=== PATIENT | female | born 1970 | race Caucasian/White ===

== ENCOUNTER 2019-11-15 13:39 | Inpatient (IN) ==
[2019-11-15] MEDS ORDERED: cefTRIAXone SODIUM 1,000 MG/50 ML BAG IV STA (14:42)
--- NOTE | 2019-11-15 15:07 | Emergency Department Note ---
History of Present Illness General Chief complaint: Leg Injury/Pain Stated complaint: LEFT LEG SWOLLEN,BRUISED AND PAINFUL Time Seen by Provider: 11/15/19 14:10 History of Present Illness Maximum Pain Intensity: 10 This 49-year-old female presents the ER with chief complaint of pain and s welling to the stump of her left leg. 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 She states that it started getting swollen a month ago and was seen in her PCPs office and told to go home and prop it up. She was later seen at [facility] and was told she had cellulitis and was placed on antibiotics and Lasix. The patient has been done with the antibiotic for the 2 to 3 weeks and states she does not feel like it is getting any better. She states is very tender to touch and she now notices an area that looks like a huge blister right on the stump. She states the pain radiates up the leg. The patient states she had a Doppler performed at [facility] approximately 1 month ago which was negative. She returned in the ER a week later and was placed on morphine and was placed on amoxicillin. Home Medications Home Medications Medication Instructions Recorded Confirmed Type adalimumab 40 mg/0.8 mL See Rx Instructions SQ .COMPLEX 03/20/19 03/20/19 History subcutaneous syringe kit cholecalciferol (vitamin D3) 125 5,000 units PO DAILY 03/20/19 03/20/19 History mcg (5,000 unit) capsule clopidogrel 75 mg tablet 75 mg PO DAILY 03/20/19 03/20/19 History duloxetine 60 mg capsule,delayed 60 mg PO BID cap 03/20/19 03/20/19 History release folic acid 1 mg tablet 1 mg PO DAILY 03/20/19 03/20/19 History hydroxychloroquine 200 mg tablet 300 mg PO DAILY tab 03/20/19 03/20/19 History lisinopril 10 mg tablet 10 mg PO DAILY 03/20/19 03/20/19 History meloxicam 7.5 mg tablet 7.5 mg PO DAILY 03/20/19 03/20/19 History methotrexate sodium (PF) 50 mg mg .ROUTE 03/20/19 03/20/19 History solution for injection olanzapine 20 mg tablet 20 mg PO HS tab 03/20/19 03/20/19 History ondansetron HCl 4 mg tablet 4 mg PO TID PRN 03/20/19 03/20/19 History prazosin 2 mg capsule 2 mg PO QPM 03/20/19 03/20/19 History prednisolone 5 mg tablet 5 mg PO DAILY 03/20/19 03/20/19 History rosuvastatin 10 mg tablet 10 mg PO DAILY 03/20/19 03/20/19 History sulfasalazine 500 mg tablet 0.5 gm PO BID tab 03/20/19 03/20/19 History gabapentin 600 mg tablet 600 mg PO TID #90 tab 03/26/19 Rx Allergies Allergy/AdvReac Type Severity Reaction Status Date / Time No Known Allergies Allergy Verified 03/20/19 15:00 Past Med/Surg History Medical History Acquired absence of left leg below knee (Acute) Acquired absence of right leg below knee (Acute) Adjustment disorder with mixed anxiety and depressed mood (Acute) Amput below knee, unilat (Acute) Chronic pain syndrome (Acute) Inflammatory polyarthropathy (Acute) PVD (peripheral vascular disease) (Acute) Rheumatoid arthritis (Acute) Surgical History Hx of cholecystectomy (Resolved) Social History Communication Ability: Effective Hearing Ability: Normal 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 Beliefs That Will Affect Care: None marital status: seperated Current Living Situation: Alone current occupational status: disabled Feels Safe at Home: Yes Smoking Status: Current every day smoker Hx Alcohol Use: No Hx Substance Use: No Review of Systems A total of 10 systems reviewed and were otherwise negative Physical Exam Vital Signs Vital Signs - 24 hr 11/15/19 13:44 11/15/19 14:54 Temperature 36.5 C Temperature Source Oral Pulse Rate 87 Pulse Rate [Finger] 86 Respiratory Rate 18 18 Respiratory Effort / Characteristics Non-Labored Respiratory Depth Normal Respiratory Pattern Regular Blood Pressure 104/71 Blood Pressure [Right Arm] 120/81 Blood Pressure Mean 82 Blood Pressure Mean [Right Arm] 94 Blood Pressure Position [Right Arm] Sitting Pulse Oximetry 99 96 Oxygen Delivery Method Room Air Room Air Sepsis Recent Fever Within 48 Hours No Sepsis New/Unexplained Change in Mental Status No Sepsis Action Taken by Nursing No Action Required GENERAL: 49-year-old female appears in no acute distress. MENTAL Status: Alert and oriented x3 NECK: Supple, no lymphadenopathy noted. No carotid bruits noted. LUNGS: Clear auscultation without wheezes rales or rhonchi. CARDIAC: Regular rate and rhythm without murmur. Pulses is full and equal throughout. LEFT LEG: Below the knee amputee with area of erythema and edema over the entire stump with a large bullae noticed on the stump without any active drainage at this time. Course Administered Medications Discontinued Medications Ceftriaxone Sodium (Rocephin) 1,000 mg in 50 mls @ 100 mls/hr IV NOW STA Stop: 11/15/19 15:11 Last Admin: 11/15/19 14:53 Dose: 100 mls/hr Documented by: [id number] Morphine Sulfate (Morphine Sulfate) 8 mg IV NOW STA Stop: 11/15/19 15:33 Last Admin: 11/15/19 15:50 Dose: 8 mg Documented by: [id number] Ondansetron HCl (Zofran) 4 mg IV NOW STA Stop: 11/15/19 15:33 Last Admin: 11/15/19 15:50 Dose: 4 mg Documented by: [id number] Medical Decision Making Differential Diagnosis Cellulitis, osteomyelitis, skin Medical Records Attestation: I reviewed the patient's medical records. Home Medications Current Medication List: was personally reviewed by me Laboratory Data Attestation: I reviewed the patient's lab results. Result diagrams: 11/15/19 14:50 11/15/19 14:50 Lab Results 11/15/19 11/15/19 Range/Units 14:50 14:50 WBC 15.70 H (4.8-10.8) K/uL RBC 4.83 (4.2-5.4) M/uL Hgb 13.5 (12.0-16.0) g/dL Hct 39.7 (37-47) % MCV 82.2 (80-100) fL MCH 28.0 (25-34) pg MCHC 34.0 (32-36) g/dL RDW Std Deviation 38.3 (36.4-46.3) fL RDW Coeff of Maik 12.7 (11.5-14.5) % Plt Count 273 (130-400) K/uL MPV 8.7 (7.4-10.4) fL Immature Gran % (Auto) 0.3 % Neut % (Auto) 73.5 % Lymph % (Auto) 21.8 % Payette % (Auto) 3.9 % Eos % (Auto) 0.4 % Baso % (Auto) 0.1 % Immature Gran # (Auto) 0.05 H (0.00-0.02) K/uL Neut # (Auto) 11.53 H (1.4-6.5) K/uL Lymph # (Auto) 3.43 H (1.2-3.4) K/uL Payette # (Auto) 0.61 H (0.11-0.59) K/uL Eos # (Auto) 0.06 (0-0.5) K/uL Baso # (Auto) 0.02 (0-0.2) K/uL Sodium 126 L (136-145) mmol/L Potassium 2.5 L* (3.5-5.1) mmol/L Chloride 87 L (98-107) mmol/L Carbon Dioxide 31 (21-32) mmol/L Anion Gap 8.0 (3-11) BUN 5 L (7-18) mg/dl Creatinine 0.74 (0.6-1.2) mg/dl Est Cr Clr Drug Dosing Not Reportable Est GFR ( Amer) 111.0 Est GFR (Non-Af Amer) 95.8 BUN/Creatinine Ratio 7.1 L (10-20) Glucose 181 H (70-99) mg/dl Calcium 9.4 (8.5-10.1) mg/dl Phosphorus 2.2 L (2.5-4.9) mg/dl Total Bilirubin 0.4 (0.2-1) mg/dl AST 17 (15-37) U/L ALT 14 (12-78) U/L Alkaline Phosphatase 142 H (45-117) U/L Total Protein 8.2 (6.4-8.2) gm/dl Albumin 2.9 L (3.4-5.0) gm/dl Globulin 5.3 H (2.5-4.0) gm/dl Albumin/Globulin Ratio 0.6 L (0.9-2) Imaging Data Attestation: I personally reviewed and interpreted this imaging study as follows: My Impression: No acute bony abnormality noted Radiologist's Impression: XR knee LT 1 or 2V routine CLINICAL HISTORY: Evaluate for osteomyelitis infection COMPARISON: None. DISCUSSION: Prior below-knee amputation. Mild disuse osteopenia. Moderate soft tissue edema. Lateral projection shows tiny ossific fragments inferior to the tibia most likely a postoperative basis. No evidence for destructive process. Findings consistent with soft tissue edema IMPRESSION: Soft tissue edema. Prior below-knee amputation. No acute bony abnormality. ACT 112: Negative or not required by law. The above report was generated using voice recognition software. It may contain grammatical, syntax or spelling errors. Electronically signed by: Tray Cuevas M.D. 11/15/2019 3:18 PM Dictated: 11/15/191516 Transcribed: 11/15/191516 Blood Pressure Blood Pressure Findings: Normal blood pressure MDM Narrative Patient was evaluated. The patient was given Rocephin 1 g IV. CBC and differential, renal profile was ordered. X-ray of the left knee and was interpreted by the radiologist and myself as above without any evidence of osteomyelitis.. White count was elevated 15,000. Potassium was low at 2.5. The patient was given K. Dur 20 mEq p.o. She was also given morphine 8 mg IV and Zofran 4 mg IV push for associated pain and nausea. The patient's case was discussed with Dr. Suarez who independently evaluated the patient. The hospi talist was consulted for admission. Impression & Plan Cellulitis of left leg, Acute hypokalemia Discharge Plan Visit Data Chief Complaint: Leg Injury/Pain Stated Complaint: LEFT LEG SWOLLEN,BRUISED AND PAINFUL ED Provider: Dario Suarez ED Midlevel Provider: Kell Cuevas Discharge Problem: Cellulitis of left leg, Acute hypokalemia Patient Disposition: Being Evaluated by Hospitalist Condition: Good Forms Stand Alone Forms: My [facility] Bass Manager Prescriptions Prescriptions: No Action lisinopril 10 mg tablet 10 mg PO DAILY RF: 0 cholecalciferol (vitamin D3) 5,000 unit capsule 5,000 units PO DAILY RF: 0 clopidogrel [Plavix] 75 mg tablet 75 mg PO DAILY RF: 0 meloxicam 7.5 mg tablet 7.5 mg PO DAILY RF: 0 rosuvastatin 10 mg tablet 10 mg PO DAILY RF: 0 ondansetron HCl [Zofran] 4 mg tablet 4 mg PO TID PRNRF: 0 prazosin 2 mg capsule 2 mg PO QPM RF: 0 sulfasalazine 500 mg tablet 0.5 gm PO BID RF: 0 duloxetine [Cymbalta] 60 mg capsule,delayed release(DR/EC) 60 mg PO BID RF: 0 prednisolone 5 mg tablet 5 mg PO DAILY RF: 0 folic acid 1 mg tablet 1 mg PO DAILY RF: 0 hydroxychloroquine 200 mg tablet 300 mg PO DAILY RF: 0 methotrexate sodium (PF) 50 mg recon soln .Route RF: 0 Humira 40 mg/0.8 mL syringe kit See Rx Instructions SQ .COMPLEX RF: 0 olanzapine [Zyprexa] 20 mg tablet 20 mg PO HS RF: 0 gabapentin 600 mg tablet 600 mg PO TID Qty: 90 RF: 1 Referrals Referrals: Thanh Hanna DO [Primary Care Provider] -
[2019-11-15 15:11] LABS: Basophils # (auto) 0.02 K/uL (0-0.2); Basophils % (auto) 0.1 %; Eosinophils # (auto) 0.06 K/uL (0-0.5); Eosinophils % (auto) 0.4 %; Hematocrit (blood only) 39.7 % (37-47); Hemoglobin 13.5 g/dL (12.0-16.0); Immature Granulocytes # (auto) 0.05 K/uL (0.00-0.02); Immature Granulocytes % (auto) 0.3 %; Lymphocytes # (auto) 3.43 K/uL (1.2-3.4); Lymphocytes % (auto) 21.8 %; Mean Corpuscular Volume 82.2 fL (80-100); Mean Platelet Volume 8.7 fL (7.4-10.4); Monocytes # (auto) 0.61 K/uL (0.11-0.59); Monocytes % (auto) 3.9 %; Neutrophils # (auto) 11.53 K/uL (1.4-6.5); Neutrophils % (auto) 73.5 %; Platelet Count 273 K/uL (130-400); RDW Coefficient of Variation 12.7 % (11.5-14.5); RDW Standard Deviation 38.3 fL (36.4-46.3); Red Blood Count 4.83 M/uL (4.2-5.4)
--- NOTE | 2019-11-15 15:19 | XRay Report ---
XR knee LT 1 or 2V routine CLINICAL HISTORY: Evaluate for osteomyelitis infection COMPARISON: None. DISCUSSION: Prior below-knee amputation. Mild disuse osteopenia. Moderate soft tissue edema. Lateral projection shows tiny ossific fragments inferior to the tibia most likely a postoperative basis. No evidence for destructive process. Findings consistent with soft tissue edema IMPRESSION: Soft tissue edema. Prior below-knee amputation. No acute bony abnormality. ACT 112: Negative or not required by law. The above report was generated using voice recognition software. It may contain grammatical, syntax or spelling errors. Electronically signed by: Tray Cuevas M.D. 11/15/2019 3:18 PM
[2019-11-15] MEDS ORDERED: MoRPHine SULFATE 10 MG/ML CARP/VIAL IV STA (15:32)
[2019-11-15] MEDS ORDERED: ONDANSETRON INJ 2 MG/ML 2 ML VIAL IV STA (15:32)
[2019-11-15 15:41] LABS: Alanine Aminotransferase 14 U/L (12-78); Albumin Globulin Ratio 0.6 (0.9-2); Albumin Level 2.9 gm/dl (3.4-5.0); Alkaline Phosphatase 142 U/L (45-117); Aspartate Aminotransferase 17 U/L (15-37); BUN Creatinine Ratio 7.1 (10-20); Bilirubin,Total 0.4 mg/dl (0.2-1); Blood Urea Nitrogen 5 mg/dl (7-18); Calcium 9.4 mg/dl (8.5-10.1); Carbon Dioxide 31 mmol/L (21-32); Chloride 87 mmol/L (98-107); Est GFR (Non-African American) 95.8; Globulin 5.3 gm/dl (2.5-4.0); Glucose 181 mg/dl (70-99); Phosphorus 2.2 mg/dl (2.5-4.9); Potassium 2.5 mmol/L (3.5-5.1); Sodium 126 mmol/L (136-145); Total Protein 8.2 gm/dl (6.4-8.2)
[2019-11-15] MEDS ORDERED: POTASSIUM CHLORIDE 10 MEQ TABCR PO STA (15:44)
--- NOTE | 2019-11-15 16:36 | Emergency Department Note ---
ED Visit Note I have seen and examined this patient with Felisa Cuevas and generally agree with the treatment plan as discussed. .
[2019-11-15] MEDS ORDERED: POTASSIUM CHLORIDE 20 MEQ TABCR PO STA (16:49)
--- NOTE | 2019-11-15 17:36 | History & Physical Report ---
Date of Service November 15, 2019 Assessment & Plan (1) Cellulitis of left leg: Left stump ulcer Pt is 49 y/o F with PMH RA, PAD, aortoiliac occlusive disease S/P bilateral BKA, HLD presented to ER with complaint of left BKA stump pain, erythema, edema x couple weeks. Patient states approximately 4 weeks ago she was transferring when she fell onto her left stump and then 2 weeks later developed edema, erythema and blister. Trial outpatient keflex without improvement. Denies fever/chills In ER pt afebrile, P: 87, R: 18, BP: 104/71, 99% on RA. WBC: 15 XRAY LEFT KNEE: Soft tissue edema. No acute bony abnormality -In ER given 1 g Rocephin, morphine, Zofran -Blood cultures obtained after pt received Rocephin -MRI left knee to r/o osteomyelitis -Oxycodone, Morphine prn pain -IV vancomycin -Wound consult -Ortho consult -CBC in a.m. (2) Hypokalemia: K: 2.5 -In ER given oral potassium 20 mEq -Give additional oral potassium and repeat BMP this evening -Monitor BMP (3) Hypomagnesemia: Magnesium: 1.7 -IV magnesium 1 g -Monitor magnesium (4) Hypophosphatemia: Phosphorus: 2.2 -K-Phos 15 mmol IV -Monitor (5) Elevated glucose: Random glucose 181 -A1c in a.m. (6) Chronic hyponatremia: Na: 127 corrected for glucose 181. Baseline~131 -Monitor (7) PVD (peripheral vascular disease): (8) History of below-knee amputation of both lower extremities: H/O occlusive disease S/P Left BKA in 2016 and R BKA in 2018 -Continue Plavix, statin (9) Rheumatoid arthritis: Not currently on prednisone -Hold Humira, methotrexate -Continue sulfasalazine, Plaquenil (10) Tobacco use: Cut back to 5 cigarettes day -Smoking cessation encouraged -Nicotine patch (11) Depression with anxiety: -continue duloxetine, olanzapine DVT Prophylaxis -Heparin SQ Full Code as per discussion with pt Follows with Dr Hanna in [place] for routine care Pt was seen and care coordinated with Dr Mahoney. See addendum History of Present Illness Chief Complaint: Left stump edema Primary Care Provider: Thanh Hanna DO Pt is 49 y/o F with PMH RA, PAD, aortoiliac occlusive disease S/P bilateral BKA, HLD presented to ER with complaint of left BKA stump pain, erythema, edema x couple weeks. Patient states approximately 4 weeks ago she was transferring when she fell onto her left stump. Patient states had some discomfort at time. States approximately 2 weeks later started noting edema to knee and stump and then noticed redness at distal end. She reports she had a blister to medial aspect of stump which broke open. He was seen at [facility] ER on 10/31/2019 had ultrasound LLE with no DVT, had knee x-ray with no signs of osteomyelitis and was given pain medicine and HCTZ for several days. Pt reports no improvement and was seen again at [facility] ER and was started on cephalexin. Patient states no improvement since. Patient admits that she has not been elevating the leg. She reports chronic burning pain of BLE since BKA and states was to follow with pain management for possible injections. Denies any fever or chills. States last night she vomited twice. Denies diaphoresis, D/C, CORDERO, dizziness, syncope, vision changes, neck pain, CP, SOB, orthopnea, palpitations, cough, sore throat, choking, otalgia, rhinorrhea, abdominal pain, paresthesias, weakness, rashes, urinary symptoms. Allergies Allergy/AdvReac Type Severity Reaction Status Date / Time No Known Allergies Allergy Verified 03/20/19 15:00 Home Medications Home Medications Medication Instructions Recorded Confirmed Type adalimumab 40 mg/0.8 mL See Rx Instructions SQ .COMPLEX 03/20/19 11/15/19 History subcutaneous syringe kit clopidogrel 75 mg tablet 75 mg PO DAILY 03/20/19 11/15/19 History duloxetine 60 mg capsule,delayed 60 mg PO DAILY cap 03/20/19 11/15/19 History release folic acid 1 mg tablet 1 mg PO DAILY 03/20/19 11/15/19 History hydroxychloroquine 200 mg tablet 300 mg PO DAILY tab 03/20/19 11/15/19 History methotrexate sodium (PF) 50 mg 50 mg .ROUTE WK 03/20/19 11/15/19 History solution for injection olanzapine 20 mg tablet 20 mg PO HS tab 03/20/19 11/15/19 History prazosin 2 mg capsule 2 mg PO QPM 03/20/19 11/15/19 History sulfasalazine 500 mg tablet 500 mg PO BID tab 03/20/19 11/15/19 History gabapentin 600 mg PO TID 11/15/19 11/15/19 History lisinopril 10 mg PO DAILY 11/15/19 11/15/19 History rosuvastatin 20 mg PO DAILY 11/15/19 11/15/19 History Past Med/Surg History Medical History (Updated 11/15/19 @ 18:11 by Portia Starr PA-C) Acquired absence of left leg below knee (Acute) Acquired absence of right leg below knee (Acute) Adjustment disorder with mixed anxiety and depressed mood (Acute) Amput below knee, unilat (Acute) Chronic hyponatremia Chronic pain syndrome (Acute) Depression with anxiety Inflammatory polyarthropathy (Acute) PVD (peripheral vascular disease) (Acute) Rheumatoid arthritis (Acute) Surgical History History of below-knee amputation of both lower extremities Hx of cholecystectomy (Resolved) Family History Other Cancer Coronary heart disease Hypertension Stroke Social History Communication Ability: Effective Hearing Ability: Normal 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 Beliefs That Will Affect Care: None marital status: seperated Current Living Situation: Alone current occupational status: disabled Feels Safe at Home: Yes Smoking Status: Current every day smoker Cigarettes Per Day: 5 cigarettes a day ; Hx Alcohol Use: No Hx Substance Use: No Review of Systems Review of Systems: All systems reviewed & are unremarkable except as noted in HPI & below Physical Exam Physical Exam: General: no acute distress, WDWN Head: normocephalic, atraumatic Eyes: PERRL, EOM's intact, conjunctiva non-injected, anicteric ENT: normal inspection external ears, nose, mucous membranes moist Neck: supple, trachea midline Lungs: clear, no respiratory distress, no wheezing/rhonchi/rales CV: RRR, no murmur Abd: normal BS, soft, non-tender Ext: no cyanosis, Bilateral BKA. Right knee stump without erythema and edema. Left knee stump with diffuse edema and tenderness to palpation, distal aspect stump with erythema, medial aspect with ulceration with escar Neuro: A&O x 3, no focal deficits noted, normal affect Skin: warm, dry; LLE as above Results & Data Vital Signs (Past 12 Hours) Vital Signs Temp Pulse Pulse Resp BP BP Pulse Ox 11/15/19 16:48 73 18 113/83 97 11/15/19 15:50 72 18 115/73 98 11/15/19 14:54 86 18 120/81 96 11/15/19 13:44 36.5 C 87 18 104/71 99 Laboratory Results Short CBC 11/15/19 Range/Units 14:50 WBC 15.70 H (4.8-10.8) K/uL Hgb 13.5 (12.0-16.0) g/dL Hct 39.7 (37-47) % Plt Count 273 (130-400) K/uL BMP 11/15/19 14:50 Sodium 126 L Potassium 2.5 L* Chloride 87 L Carbon Dioxide 31 BUN 5 L Creatinine 0.74 Glucose 181 H Calcium 9.4 Liver Function 11/15/19 Range/Units 14:50 Total Bilirubin 0.4 (0.2-1) mg/dl AST 17 (15-37) U/L ALT 14 (12-78) U/L Alkaline Phosphatase 142 H (45-117) U/L Albumin 2.9 L (3.4-5.0) gm/dl Diagnostic Findings LEFT KNEE XRAY: IMPRESSION: Soft tissue edema. Prior below-knee amputation. No acute bony abnormality. Supervising Physician Co-Signing Physician Notes I have seen and examined the patient and have discussed the case with the pro vider above. I agree with the assessment and plan as stated with the following exceptions. 49-year-old female status post bilateral amputation with a recent fall and injury to her left lower leg area. She has a wound with an eschar area and surrounding erythema with some serous drainage. She is reporting an intense burning pain for the last 4 to 6 weeks that is difficult to manage. She has be en using Aleve twice daily at home [id number] per her report. The oxycodone and pain meds that she has been given so far has been ineffective and she is requesting more. She denies any fevers chills, chest pain, shortness of breath or other infectious symptoms. It is odd to me that her electrolytes have come back so off with her potassium 2.5 magnesium off etc. I have requested that these be repeated now. My physical exam is consistent with that above including clear lungs to auscultation and normal cardiac exam and an abdomen that is soft and nontender nondistended. Her right lower extremity has a golf ball sized eschar with surrounding erythema. There is some serous drainage present but no evidence of purulent drainage. There is tenderness to palpation but no area of fluctuance. Will obtain wound culture. Will increase oxycodone to 7.5 mg every 6 as needed and IV narcotics as needed for breakthrough. Additionally will pursue an MRI to ensure no evidence of osteo-of the bones and no deeper infection present. Will cover empirically with vancomycin for now. DO Denzel
[2019-11-15] MEDS ORDERED: OXYCODONE HCL IR 5 MG TAB (IMMEDIATE RELEASE) PO STA ×2 (17:37→19:15)
[2019-11-15] MEDS ORDERED: POTASSIUM PHOS 3 MMOL/1 ML INFUSION IV STA (18:35)
[2019-11-15] MEDS ORDERED: OXYCODONE HCL IR 5 MG TAB (IMMEDIATE RELEASE) PO PRN (18:35)
[2019-11-15] MEDS ORDERED: SODIUM CHLORIDE 0.9% 1000ML 1,000 ML IV SCH (18:35)
[2019-11-15] MEDS ORDERED: POLYETHYLENE (MIRALAX) 17 GM PACK PO PRN (18:35)
[2019-11-15] MEDS ORDERED: MAGNESIUM SULFATE / D5W 1 GM/100 ML BAG IV ONE (19:00)
[2019-11-15] MEDS ORDERED: VANCOMYCIN CONSULT ACTIVE PRN (19:15)
[2019-11-15 19:54] LABS: BUN Creatinine Ratio 7.1 (10-20); Blood Urea Nitrogen 6 mg/dl (7-18); Calcium 9.3 mg/dl (8.5-10.1); Carbon Dioxide 29 mmol/L (21-32); Chloride 88 mmol/L (98-107); Est GFR (African American) 102.6; Est GFR (Non-African American) 88.5; Glucose 151 mg/dl (70-99); Potassium 2.6 mmol/L (3.5-5.1); Sodium 126 mmol/L (136-145)
[2019-11-15] MEDS ORDERED: POTASSIUM PHOSPHATE 15 MMOL in SODIUM CHLORIDE 0.9% 250 ML IV ONE (20:00)
--- NOTE | 2019-11-15 20:40 | Orthopedic Consultation ---
Date of Consultation November 15, 2019 Assessment & Plan (1) Cellulitis of left leg: No obvious osteomyelitis on x-ray. Recommend MRI to evaluate for fluid collection, deep infection including osteomyelitis. Discussed with patient pending MRI results continued IV antibiotics and local wound care, if deep infection present it is the patient's preference for transfer to [facility] for further intervention/revision of her amputation by her vascular surgeons. Thank you for the consultation. History of Present Illness Reason for Consultation: Left BKA cellulitis/ulceration Attending Physician: Dutch Olsen MD History of Present Illness The patient is a 49-year-old female with PMH RA, PAD, aortoiliac occlusive disease S/P bilateral BKA, HLD presented to ER with complaint of left BKA stump pain, erythema, edema x couple weeks. Patient has significant past surgical history for left BKA 4 years prior and right BKA 1 year prior. Her surgeries performed at [place] and is well-known to the vascular surgery team. She follows up annually with her vascular surgeon at [facility]. She re ports she has follow-up appointment with the vascular surgeons in February. The patient states approximately 6 weeks ago she was transferring when she fell onto her left stump and then 2 weeks later developed edema, erythema and blister. Patient failed outpatient trial of p.o. Keflex. Subsequently admitted to [facility] for further evaluation treatment of her left BKA cellulitis. Currently denies fevers, chills, nausea, vomiting, shortness of breath or chest pain. Allergies Allergy/AdvReac Type Severity Reaction Status Date / Time No Known Allergies Allergy Verified 03/20/19 15:00 Home Medications Home Medications Medication Instructions Recorded Confirmed Type adalimumab 40 mg/0.8 mL See Rx Instructions SQ .COMPLEX 03/20/19 11/15/19 History subcutaneous syringe kit clopidogrel 75 mg tablet 75 mg PO DAILY 03/20/19 11/15/19 History duloxetine 60 mg capsule,delayed 60 mg PO DAILY cap 03/20/19 11/15/19 History release folic acid 1 mg tablet 1 mg PO DAILY 03/20/19 11/15/19 History hydroxychloroquine 200 mg tablet 300 mg PO DAILY tab 03/20/19 11/15/19 History methotrexate sodium (PF) 50 mg 50 mg .ROUTE WK 03/20/19 11/15/19 History solution for injection olanzapine 20 mg tablet 20 mg PO HS tab 03/20/19 11/15/19 History prazosin 2 mg capsule 2 mg PO QPM 03/20/19 11/15/19 History sulfasalazine 500 mg tablet 500 mg PO BID tab 03/20/19 11/15/19 History gabapentin 600 mg PO TID 11/15/19 11/15/19 History lisinopril 10 mg PO DAILY 11/15/19 11/15/19 History rosuvastatin 20 mg PO DAILY 11/15/19 11/15/19 History Patient History Medical History Acquired absence of left leg below knee (Acute) Acquired absence of right leg below knee (Acute) Adjustment disorder with mixed anxiety and depressed mood (Acute) Amput below knee, unilat (Acute) Chronic hyponatremia Chronic pain syndrome (Acute) Depression with anxiety Inflammatory polyarthropathy (Acute) PVD (peripheral vascular disease) (Acute) Rheumatoid arthritis (Acute) Surgical History History of below-knee amputation of both lower extremities Hx of cholecystectomy (Resolved) Family History Other Cancer Coronary heart disease Hypertension Stroke Social History Preferred Language: Ivorian Communication Ability: Effective Hearing Ability: Normal 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 Beliefs That Will Affect Care: None marital status: seperated Current Living Situation: Alone current occupational status: disabled Other Information That Helps Us Care for You: No Feels Safe at Home: Yes Smoking Status: Light tobacco smoker Tobacco Type: cigarettes ; Cigarettes Per Day: 5 cigarettes a day ; Do You Dip or Chew Tobacco: No ; Second Hand Exposure: No ; Tobacco Cessation Education Requested by Patient: No Hx Alcohol Use: No Hx Substance Use: No Review of Systems Review of Systems: All systems reviewed & are unremarkable except as noted in HPI & below Constitutional: as per Subjective / HPI Physical Exam Physical Exam: Left lower extremity BKA, positive mild erythema and moderate edema, medial incision ulceration with eschar formation measuring 3.5 x 2.5 cm scant serous drainage. Tenderness to palpation grossly. Constitutional: WD/WN, vitals as above Results & Data ([place]) Vital Signs (Past 12 Hours) Vital Signs Temp Pulse Pulse Resp BP BP Pulse Ox 11/15/19 19:30 36.7 C 82 16 147/83 H 93 11/15/19 19:00 37 C 86 20 112/73 99 11/15/19 18:35 36.5 C 89 18 123/84 94 11/15/19 18:09 76 16 110/73 96 11/15/19 16:48 73 18 113/83 97 11/15/19 15:50 72 18 115/73 98 11/15/19 14:54 86 18 120/81 96 11/15/19 13:44 36.5 C 87 18 104/71 99 Diagnostic Findings XR knee LT 1 or 2V routine CLINICAL HISTORY: Evaluate for osteomyelitis infection COMPARISON: None. DISCUSSION: Prior below-knee amputation. Mild disuse osteopenia. Moderate soft tissue edema. Lateral projection shows tiny ossific fragments inferior to the tibia most likely a postoperative basis. No evidence for destructive process. Findings consistent with soft tissue edema IMPRESSION: Soft tissue edema. Prior below-knee amputation. No acute bony abnormality.
[2019-11-15] MEDS: PATIENT'S HEIGHT AND/OR WEIGHT NEEDED SCH ×2 (21:32→22:01)
[2019-11-15] MEDS: PRAZOSIN HCL 1 MG CAP PO SCH (21:42)
[2019-11-15] MEDS: OLANZapine 20 MG TABLET PO SCH (21:42)
[2019-11-15] MEDS: HEPARIN SOD 5,000 UNIT/0.5 ML VIAL SQ SCH (21:44)
[2019-11-15] MEDS: POTASSIUM CHLORIDE 20 MEQ TABCR PO SCH ×2 (21:44→21:52)
[2019-11-15] MEDS: NICOTINE 14 MG/24 HR PATCH TD SCH (21:45)
[2019-11-15] MEDS: sulfaSALAzine 500 MG TABLET PO SCH (21:45)
[2019-11-15] MEDS: GABAPENTIN 600 MG TAB PO SCH (21:45)
[2019-11-15] MEDS: MoRPHine SULFATE 2 MG/ML CARP IV PRN (21:58)
--- NOTE | 2019-11-15 22:10 | Pharmacy Report ---
Pharmacy Abx Dose Short Note - Date of Service November 15, 2019 - Assessment & Plan Assessment 49 year old F ordered empiric vancomycin IV for treatment of left leg cellulitis * history of b/l BKA * received ceftriaxone 1000 mg IV in the ED * BC pending Plan Vancomycin * 1250 mg IV x 1, then 750 mg IV q12h * eCrCl = 70 ml/min (adjusted for b/l BKA) * Trough level ordered for 11/16 @ 0930 * Goal trough: ~15 mcg/mL Pharmacy will continue to follow and will adjust dose/frequency as necessary. Thank you.
[2019-11-15] MEDS ORDERED: VANCOMYCIN HCL 1,250 MG in SODIUM CHLORIDE 0.9% 250 ML IV ONE (22:15)
[2019-11-15] MEDS: MAGNESIUM SULFATE / D5W 1 GM/100 ML BAG IV SCH (23:45)
[2019-11-16] MEDS ORDERED: OXYCODONE HCL IR 5 MG TAB (IMMEDIATE RELEASE) PO PRN (01:00)
[2019-11-16] MEDS: MAGNESIUM SULFATE / D5W 1 GM/100 ML BAG IV SCH (01:16)
[2019-11-16 07:38] LABS: Basophils # (auto) 0.01 K/uL (0-0.2); Basophils % (auto) 0.1 %; Eosinophils # (auto) 0.04 K/uL (0-0.5); Eosinophils % (auto) 0.4 %; Hematocrit (blood only) 37.6 % (37-47); Hemoglobin 12.5 g/dL (12.0-16.0); Immature Granulocytes # (auto) 0.04 K/uL (0.00-0.02); Immature Granulocytes % (auto) 0.4 %; Lymphocytes # (auto) 2.31 K/uL (1.2-3.4); Lymphocytes % (auto) 23.5 %; Mean Corpuscular Hemoglobin 28.2 pg (25-34); Mean Corpuscular Hgb Conc 33.2 g/dL (32-36); Mean Corpuscular Volume 84.7 fL (80-100); Mean Platelet Volume 8.5 fL (7.4-10.4); Monocytes # (auto) 0.35 K/uL (0.11-0.59); Monocytes % (auto) 3.6 %; Neutrophils # (auto) 7.09 K/uL (1.4-6.5); Platelet Count 249 K/uL (130-400); RDW Coefficient of Variation 12.9 % (11.5-14.5); RDW Standard Deviation 40.3 fL (36.4-46.3); Red Blood Count 4.44 M/uL (4.2-5.4); White Blood Count 9.84 K/uL (4.8-10.8)
[2019-11-16 08:12] LABS: Calcium 8.9 mg/dl (8.5-10.1); Creatinine Clr Calc Pharmacy 81.8 ml/min; Est GFR (African American) 119.3; Est GFR (Non-African American) 102.9; Magnesium 2.8 mg/dl (1.8-2.4); Phosphorus 3.3 mg/dl (2.5-4.9); Potassium 4.8 mmol/L (3.5-5.1)
[2019-11-16] MEDS: HYDROXYCHLOROQUINE SULFATE 200 MG TAB PO SCH (08:41)
[2019-11-16] MEDS: NICOTINE 14 MG/24 HR PATCH TD SCH (08:41)
[2019-11-16] MEDS: CLOPIDOGREL BISULFATE 75 MG TAB PO SCH (08:41)
[2019-11-16] MEDS: predniSONE 5 MG TAB PO SCH (08:41)
[2019-11-16] MEDS: lisinopriL 10 MG TAB PO SCH (08:41)
[2019-11-16] MEDS: POTASSIUM CHLORIDE 20 MEQ TABCR PO SCH (08:41)
[2019-11-16] MEDS: GABAPENTIN 600 MG TAB PO SCH ×3 (08:41→21:06)
[2019-11-16] MEDS: DULOXETINE HCL 60 MG CAP PO SCH (08:42)
[2019-11-16] MEDS: HEPARIN SOD 5,000 UNIT/0.5 ML VIAL SQ SCH ×2 (08:42→21:09)
[2019-11-16] MEDS: ROSUVASTATIN CALCIUM 20 MG TAB PO SCH (08:42)
[2019-11-16] MEDS: FOLIC ACID 1 MG TAB PO SCH (08:42)
[2019-11-16] MEDS: sulfaSALAzine 500 MG TABLET PO SCH ×2 (08:42→21:06)
[2019-11-16 08:48] LABS: Estimated Average Glucose 197 mg/dl; Hemoglobin A1C 8.5 % (4.5-5.6)
[2019-11-16] MEDS: VANCOMYCIN HCL 750 MG in SODIUM CHLORIDE 0.9% 250 ML IV SCH ×2 (09:57→22:21)
--- NOTE | 2019-11-16 11:59 | Electrocardiogram Report ---
Test Reason : Blood Pressure : / mmHG Vent. Rate : 079 BPM Atrial Rate : 079 BPM P-R Int : 118 ms QRS Dur : 086 ms QT Int : 392 ms P-R-T Axes : 047 085 070 degrees QTc Int : 449 ms Normal sinus rhythm Normal ECG No previous ECGs available Confirmed by Jd Albrecht ([id number]) on 11/16/2019 11:59:01 AM Referred By: REFERRED SELF Confirmed By:Jd Albrecht
--- NOTE | 2019-11-16 13:58 | Hospitalist Progress Note ---
Date of Service November 16, 2019 Assessment & Plan (1) Cellulitis of left leg: improved on vancomycin, resolution of leukocytosis. Still awaiting MRI to see if deeper infection exists. Skin very fragile and needs wound care nurse attention. Cont Optifoam. Pain is improved with oxycodone. No more nausea. Afebrile. Cont Vanc. Appreciate Ortho recommendations. (2) Electrolyte abnormality: Resolved low Mg, Phos, K and Na. Now all within normal limits. (3) DMII (diabetes mellitus, type 2): New diabetic, may be steroid related as she reports being on chronic prednisone. Hemoglobin A1c is 8.5. Will start 4 times daily blood sugar checks and institute basal bolus insulin with correction factor and carb coverage. Will monitor blood sugar closely and have the diabetic nurse educator see her. Would prefer to start her on Metformin going home. (4) Rheumatoid arthritis: Reported being on prednisone 5mg daily which was started. -Hold Humira, methotrexate -Continue sulfasalazine, Plaquenil (5) Tobacco use: Smoking cessation strongly recommended, nicoderm patch in the hospital. (6) Depression with anxiety: Cont Cymbalta per home regimen. (7) DVT prophylaxis: Heparin Full Code Dispo-cont hospitalization. Luisa Mahoney DO [facility] Hospitalist Admission and Anticipated Discharge Date Admission Date: November 15, 2019 Anticipated date of discharge: 11/19/19 Subjective Pt feeling better today with respect to the severe pain. Denies nausea but is very fatigued and frequently falling asleep. ROS is limited, therefore. Review of Systems Review of Systems: Unobtainable due to cognitive status (limited information 2/2 increased sedation) Physical Exam Physical Exam: CONSTITUTIONAL: WNWD, vitals as above, generally well- appearing but somnolent EYES: normal conjunctivae, no scleral icterus ENT: MMM RESPIRATORY: clear to auscultation bilaterally, no crackles, rales or wheezes, normal respiratory effort CARDIOVASCULAR: regular rate and rhythm, S1 and 2 heard without murmurs, gallops or rubs, no JVD, no peripheral edema GASTROINTESTINAL: soft, nontender, nondistended MUSCULOSKELETAL: generalized weakness, difficult for patient to wake up and move around the bed independently, head is normocephalic and atraumatic, bilateral amputee SKIN: warm and dry, left leg has persistent eschar area on the medial aspect and now a new area more lateral to this that is the size of a quarter where the skin is moist and fragile and there was superficial injury when Optifoam adhesive was carefully removed. Serous drainage is present without purulence. Surrounding erythema has improved since yesterday. NEUROLOGIC: CN 2-12 grossly intact, somnolent, limited exam. Results & Data ([facility]) Vital Signs (Past 12 Hours) Vital Signs Temp Pulse Resp BP BP Pulse Ox 11/16/19 11:27 36.8 C 84 20 115/75 89 L 11/16/19 07:55 36.7 C 85 18 115/74 90 11/16/19 04:45 36.4 C L 98 H 16 111/66 91 Laboratory Results Short CBC 11/15/19 11/16/19 Range/Units 14:50 07:15 WBC 15.70 H 9.84 (4.8-10.8) K/uL Hgb 13.5 12.5 (12.0-16.0) g/dL Hct 39.7 37.6 (37-47) % Plt Count 273 249 (130-400) K/uL BMP 11/15/19 11/15/19 11/16/19 14:50 19:15 07:15 Sodium 126 L 126 L 135 L D Potassium 2.5 L* 2.6 L 4.8 D Chloride 87 L 88 L 101 Carbon Dioxide 31 29 29 BUN 5 L 6 L 6 L Creatinine 0.74 0.79 0.69 Glucose 181 H 151 H 205 H Calcium 9.4 9.3 8.9 Liver Function 11/15/19 Range/Units 14:50 Total Bilirubin 0.4 (0.2-1) mg/dl AST 17 (15-37) U/L ALT 14 (12-78) U/L Alkaline Phosphatase 142 H (45-117) U/L Albumin 2.9 L (3.4-5.0) gm/dl Medications Administered Current Inpatient Medications Acetaminophen (Tylenol) 650 mg PO Q4H PRN PRN Reason: Pain or Fever Stop: 12/15/19 18:34 Clopidogrel Bisulfate (Plavix) 75 mg PO DAILY [facility] Stop: 12/16/19 08:59 Last Admin: 11/16/19 08:41 Dose: 75 mg Documented by: Duloxetine HCl (Cymbalta) 60 mg PO DAILY [facility] Stop: 12/16/19 08:59 Last Admin: 11/16/19 08:42 Dose: 60 mg Documented by: Folic Acid (Folvite) 1 mg PO DAILY [facility] Stop: 12/16/19 08:59 Last Admin: 11/16/19 08:42 Dose: 1 mg Documented by: Gabapentin (Neurontin) 600 mg PO TID [facility] Stop: 12/15/19 20:59 Last Admin: 11/16/19 13:43 Dose: 600 mg Documented by: Heparin Sodium (Porcine) (Heparin Sodium (Porcine)) 5,000 units SQ Q12 [facility] Stop: 12/15/19 20:59 Last Admin: 11/16/19 08:42 Dose: 5,000 units Documented by: Hydroxychloroquine Sulfate (Plaquenil) 300 mg PO DAILY [facility] Stop: 12/16/19 08:59 Last Admin: 11/16/19 08:41 Dose: 300 mg Documented by: Vancomycin HCl 750 mg/ Sodium (Chloride) 265 mls @ 125 mls/hr IV Q12H [facility] Stop: 11/22/19 21:59 Last Infusion: 11/16/19 12:10 Dose: Infused Documented by: Lisinopril (Zestril) 10 mg PO DAILY [facility] Stop: 12/16/19 08:59 Last Admin: 11/16/19 08:41 Dose: 10 mg Documented by: Miscellaneous (Remove Nicoderm Patch) 1 ea N/A DAILY@0859 [facility] Stop: 12/16/19 08:58 Last Admin: 11/16/19 08:42 Dose: 1 ea Documented by: Miscellaneous Information (Consult) 1 ea N/A UD PRN PRN Reason: Consult Stop: 12/15/19 19:14 Morphine Sulfate (Morphine Sulfate) 2 mg IV Q4H PRN PRN Reason: Severe Pain Stop: 11/29/19 18:34 Last Admin: 11/15/19 21:58 Dose: 2 mg Documented by: Nicotine (Nicoderm Cq) 14 mg TD QAM [facility] Stop: 12/15/19 18:34 Last Admin: 11/16/19 08:41 Dose: 14 mg Documented by: Olanzapine (Zyprexa) 20 mg PO HS [facility] Stop: 12/15/19 20:59 Last Admin: 11/15/19 21:42 Dose: 20 mg Documented by: Oxycodone HCl (Roxicodone Immediate Rel) 7.5 mg PO Q6H PRN PRN Reason: Moderate Pain Stop: 11/30/19 00:59 Polyethylene Glycol (Miralax Powder Packet) 17 gm PO DAILY PRN PRN Reason: Constipation Stop: 12/15/19 18:34 Prazosin HCl (Prazosin Hcl) 2 mg PO QPM [facility] Stop: 12/15/19 20:59 Last Admin: 11/15/19 21:42 Dose: 2 mg Documented by: Prednisone (Prednisone) 5 mg PO DAILY [facility] Stop: 12/16/19 08:59 Last Admin: 11/16/19 08:41 Dose: 5 mg Documented by: Rosuvastatin Calcium (Crestor) 20 mg PO DAILY [facility] Stop: 12/16/19 08:59 Last Admin: 11/16/19 08:42 Dose: 20 mg Documented by: Sulfasalazine (Azulfidine) 500 mg PO BID [facility] Stop: 12/15/19 20:59 Last Admin: 11/16/19 08:42 Dose: 500 mg Documented by:
[2019-11-16] MEDS ORDERED: CARBOHYDRATES FOR HYPOGLYCEMIA PO PRN (14:00)
[2019-11-16] MEDS ORDERED: GLUCAGON FOR INJ 1 MG VIAL SQ PRN (14:00)
[2019-11-16] MEDS ORDERED: GLUCOSE 10 TABS/TUBE PO PRN (14:00)
[2019-11-16] MEDS ORDERED: DEXTROSE 50% 50 ML SYRINGE IV PRN (14:00)
[2019-11-16] MEDS ORDERED: GLUCOSE 40% GEL 15 GM TUBE PO PRN (14:00)
[2019-11-16] MEDS: INSULIN ASPART 100 UNITS/ML 3 ML PEN SC SCH ×2 (17:47→21:08)
[2019-11-16] MEDS: PRAZOSIN HCL 1 MG CAP PO SCH (21:06)
[2019-11-16] MEDS: OLANZapine 20 MG TABLET PO SCH (21:06)
[2019-11-16] MEDS: INSULIN GLARGINE SOLOSTAR 100 UNITS/ML 3 ML PEN SC SCH (21:08)
[2019-11-17] MEDS: OXYCODONE HCL IR 5 MG TAB (IMMEDIATE RELEASE) PO PRN ×3 (04:34→17:56)
[2019-11-17 06:31] LABS: Creatinine Clr Calc Pharmacy 97.3 ml/min; Est GFR (African American) 126.3
[2019-11-17] MEDS: ACETAMINOPHEN 325 MG TAB PO PRN ×3 (07:22→21:10)
[2019-11-17] MEDS: FOLIC ACID 1 MG TAB PO SCH (08:54)
[2019-11-17] MEDS: NICOTINE 14 MG/24 HR PATCH TD SCH (08:54)
[2019-11-17] MEDS: HYDROXYCHLOROQUINE SULFATE 200 MG TAB PO SCH (08:54)
[2019-11-17] MEDS: ROSUVASTATIN CALCIUM 20 MG TAB PO SCH (08:54)
[2019-11-17] MEDS: DULOXETINE HCL 60 MG CAP PO SCH (08:54)
[2019-11-17] MEDS: lisinopriL 10 MG TAB PO SCH (08:54)
[2019-11-17] MEDS: CLOPIDOGREL BISULFATE 75 MG TAB PO SCH (08:54)
[2019-11-17] MEDS: GABAPENTIN 600 MG TAB PO SCH ×3 (08:54→21:13)
[2019-11-17] MEDS: HEPARIN SOD 5,000 UNIT/0.5 ML VIAL SQ SCH ×2 (08:54→21:00)
[2019-11-17] MEDS: predniSONE 5 MG TAB PO SCH (08:54)
[2019-11-17] MEDS: INSULIN ASPART 100 UNITS/ML 3 ML PEN SC SCH ×4 (08:55→20:58)
[2019-11-17] MEDS: sulfaSALAzine 500 MG TABLET PO SCH ×2 (08:56→21:14)
[2019-11-17] MEDS: INSULIN GLARGINE SOLOSTAR 100 UNITS/ML 3 ML PEN SC SCH ×2 (08:57→21:00)
[2019-11-17] MEDS ORDERED: HYDROmorphone INJ 0.5 MG/0.5 ML SYR IV ONE (09:28)
[2019-11-17] MEDS ORDERED: VANCOMYCIN TROUGH SCH (09:30)
--- NOTE | 2019-11-17 10:31 | Pharmacy Report ---
Pharmacy Abx Dose Short Note - Date of Service November 17, 2019 - Assessment & Plan Assessment/Plan 49 year old F receiving Vancomycin for treatment of left leg cellulitis Day # 3 of antimicrobial therapy. * leukocytosis resolved * Awaiting MRI to rule out deeper infection. * Trough of 15.4 is therapeutic for indication, however was drawn prior to 3rd dose and is not entirely reflective of steady state. Estimate that steady state level would be slightly higher. Will keep current regimen of 750mg Q12H until MRI rules out deeper infection. Laboratory Tests 11/17/19 09:21 Vancomycin Trough 15.4 Pharmacy will continue to follow and will adjust dose/frequency as necessary. Thank you.
[2019-11-17] MEDS: VANCOMYCIN HCL 750 MG in SODIUM CHLORIDE 0.9% 250 ML IV SCH ×2 (11:27→21:12)
--- NOTE | 2019-11-17 17:51 | Hospitalist Progress Note ---
Date of Service November 17, 2019 Assessment & Plan (1) Cellulitis of left leg: improved on vancomycin, resolution of leukocytosis. Still awaiting MRI to see if deeper infection exists, wasn't able to tolerate this today. May need to work with Ortho on another modality they would support, however, she is clinically improved. I would favor no further imaging at this time and get some good local wound care to address the area, continuing solid pain control efforts. Consider de-escalation of antibiotics in next 1-2 days. (2) Electrolyte abnormality: Resolved low Mg, Phos, K and Na. Now all within normal limits. (3) DMII (diabetes mellitus, type 2): New diabetic, may be steroid related as she reports being on chronic prednisone. Hemoglobin A1c is 8.5. Cont with inpatient blood sugar checks and institute basal bolus insulin with correction factor and carb coverage. Titrate as needed. Would prefer to start her on Metformin 500 IR BID going home. (4) Rheumatoid arthritis: Reported being on prednisone 5mg daily which was started. -Hold Humira, methotrexate -Continue sulfasalazine, Plaquenil (5) Tobacco use: Smoking cessation strongly recommended, nicoderm patch in the hospital. (6) Depression with anxiety: Cont Cymbalta per home regimen. (7) DVT prophylaxis: Heparin Full Code Dispo-cont hospitalization. Luisa Mahoney DO [facility] Hospitalist Admission and Anticipated Discharge Date Admission Date: November 15, 2019 Anticipated date of discharge: 11/19/19 Subjective Still somewhat somnolent today but just had a pain pill after going to MRI this morning. She reports pain and nausea are much better. Tolerating PO. Denies fevers, chills Review of Systems Review of Systems: All systems reviewed & are unremarkable except as noted in Subjective Physical Exam Physical Exam: CONSTITUTIONAL: WNWD, vitals as above, generally well- appearing , fatigued EYES: normal conjunctivae, no scleral icterus ENT: MMM RESPIRATORY: clear to auscultation bilaterally, no crackles, rales or wheezes, normal respiratory effort CARDIOVASCULAR: regular rate and rhythm, S1 and 2 heard without murmurs, gall ops or rubs, no JVD, no peripheral edema GASTROINTESTINAL: soft, nontender, nondistended MUSCULOSKELETAL: generalized weakness, difficult for patient to wake up and move around the bed independently, head is normocephalic and atraumatic, bilateral amputee SKIN: warm and dry, left leg has persistent eschar area on the medial aspect which is boggy and moist from being covered and now a new area more lateral to this that is the size of a quarter where the skin is beefy red and top layers of skin have come off. Serous drainage is present without purulence, not foul- smelling. Surrounding erythema is resolved. NEUROLOGIC: CN 2-12 grossly intact, somnolent, limited exam. Results & Data ([facility]) Vital Signs (Past 12 Hours) Vital Signs Temp Pulse Resp BP BP Pulse Ox 11/17/19 14:59 36.8 C 91 H 17 112/71 98 11/17/19 07:31 36.9 C 99 H 16 126/[address] [facility] 11/17/19 05:24 Creatinine 0.58 L Medications Administered Current Inpatient Medications Acetaminophen (Tylenol) 650 mg PO Q4H PRN PRN Reason: Pain or Fever Stop: 12/15/19 18:34 Last Admin: 11/17/19 16:12 Dose: 650 mg Documented by: Clopidogrel Bisulfate (Plavix) 75 mg PO DAILY [facility] Stop: 12/16/19 08:59 Last Admin: 11/17/19 08:54 Dose: 75 mg Documented by: Dextrose (Dextrose 50%) 25 - 50 ml IV UD PRN; Protocol PRN Reason: Hypoglycemia Protocol Stop: 12/16/19 13:59 Duloxetine HCl (Cymbalta) 60 mg PO DAILY [facility] Stop: 12/16/19 08:59 Last Admin: 11/17/19 08:54 Dose: 60 mg Documented by: Folic Acid (Folvite) 1 mg PO DAILY [facility] Stop: 12/16/19 08:59 Last Admin: 11/17/19 08:54 Dose: 1 mg Documented by: Gabapentin (Neurontin) 600 mg PO TID [facility] Stop: 12/15/19 20:59 Last Admin: 11/17/19 14:29 Dose: 600 mg Documented by: Glucagon (Glucagen) 1 mg SQ UD PRN; Protocol PRN Reason: Hypoglycemia Protocol Stop: 12/16/19 13:59 Glucose (Dex4 Glucose) 4 - 8 tabs PO UD PRN; Protocol PRN Reason: Hypoglycemia Protocol Stop: 12/16/19 13:59 Glucose (Glucose 40%) 15 - 30 gm PO UD PRN; Protocol PRN Reason: Hypoglycemia Protocol Stop: 12/16/19 13:59 Heparin Sodium (Porcine) (Heparin Sodium (Porcine)) 5,000 units SQ Q12 [facility] Stop: 12/15/19 20:59 Last Admin: 11/17/19 08:54 Dose: 5,000 units Documented by: Hydroxychloroquine Sulfate (Plaquenil) 300 mg PO DAILY [facility] Stop: 12/16/19 08:59 Last Admin: 11/17/19 08:54 Dose: 300 mg Documented by: Vancomycin HCl 750 mg/ Sodium (Chloride) 265 mls @ 125 mls/hr IV Q12H [facility] Stop: 11/22/19 21:59 Last Infusion: 11/17/19 14:24 Dose: Infused Documented by: Insulin Aspart (Novolog Flexpen) 0 units SC ACHS [facility] Stop: 12/16/19 16:29 Last Admin: 11/17/19 13:12 Dose: Not Given Documented by: Insulin Glargine (Lantus Solostar Pen) 10 units SC BID [facility] Stop: 12/16/19 20:59 Last Admin: 11/17/19 08:57 Dose: 10 units Documented by: Lisinopril (Zestril) 10 mg PO DAILY [facility] Stop: 12/16/19 08:59 Last Admin: 11/17/19 08:54 Dose: 10 mg Documented by: Miscellaneous (Remove Nicoderm Patch) 1 ea N/A DAILY@0859 [facility] Stop: 12/16/19 08:58 Last Admin: 11/17/19 08:56 Dose: 1 ea Documented by: Miscellaneous (Carbohydrates For Hypoglycemia) 15 - 30 gm PO UD PRN PRN Reason: Hypoglycemia Protocol Stop: 12/16/19 13:59 Miscellaneous Information (Consult) 1 ea N/A UD PRN PRN Reason: Consult Stop: 12/15/19 19:14 Morphine Sulfate (Morphine Sulfate) 2 mg IV Q4H PRN PRN Reason: Severe Pain Stop: 11/29/19 18:34 Last Admin: 11/15/19 21:58 Dose: 2 mg Documented by: Nicotine (Nicoderm Cq) 14 mg TD QAM [facility] Stop: 12/15/19 18:34 Last Admin: 11/17/19 08:54 Dose: 14 mg Documented by: Olanzapine (Zyprexa) 20 mg PO HS [facility] Stop: 12/15/19 20:59 Last Admin: 11/16/19 21:06 Dose: 20 mg Documented by: Oxycodone HCl (Roxicodone Immediate Rel) 5 mg PO Q6H PRN PRN Reason: Severe Pain Stop: 11/30/19 00:59 Last Admin: 11/17/19 11:29 Dose: 5 mg Documented by: Polyethylene Glycol (Miralax Powder Packet) 17 gm PO DAILY PRN PRN Reason: Constipation Stop: 12/15/19 18:34 Prazosin HCl (Prazosin Hcl) 2 mg PO QPM [facility] Stop: 12/15/19 20:59 Last Admin: 11/16/19 21:06 Dose: 2 mg Documented by: Prednisone (Prednisone) 5 mg PO DAILY [facility] Stop: 12/16/19 08:59 Last Admin: 11/17/19 08:54 Dose: 5 mg Documented by: Rosuvastatin Calcium (Crestor) 20 mg PO DAILY [facility] Stop: 12/16/19 08:59 Last Admin: 11/17/19 08:54 Dose: 20 mg Documented by: Sulfasalazine (Azulfidine) 500 mg PO BID [facility] Stop: 12/15/19 20:59 Last Admin: 11/17/19 08:56 Dose: 500 mg Documented by:
[2019-11-17] MEDS: PRAZOSIN HCL 1 MG CAP PO SCH (21:13)
[2019-11-17] MEDS: OLANZapine 20 MG TABLET PO SCH (21:13)
[2019-11-18] MEDS: OXYCODONE HCL IR 5 MG TAB (IMMEDIATE RELEASE) PO PRN ×4 (00:27→21:40)
[2019-11-18] MEDS: ACETAMINOPHEN 325 MG TAB PO PRN ×3 (06:21→22:52)
[2019-11-18 06:38] LABS: Hematocrit (blood only) 36.1 % (37-47); Hemoglobin 11.5 g/dL (12.0-16.0); Mean Corpuscular Hemoglobin 27.5 pg (25-34); Mean Corpuscular Hgb Conc 31.9 g/dL (32-36); Mean Corpuscular Volume 86.4 fL (80-100); Mean Platelet Volume 8.7 fL (7.4-10.4); Platelet Count 263 K/uL (130-400); RDW Coefficient of Variation 13.4 % (11.5-14.5); RDW Standard Deviation 42.8 fL (36.4-46.3); Red Blood Count 4.18 M/uL (4.2-5.4); White Blood Count 11.13 K/uL (4.8-10.8)
[2019-11-18 07:09] LABS: BUN Creatinine Ratio 13.7 (10-20); Calcium 9.5 mg/dl (8.5-10.1); Creatinine Clr Calc Pharmacy 81.8 ml/min; Est GFR (African American) 119.3; Est GFR (Non-African American) 102.9; Potassium 4.2 mmol/L (3.5-5.1)
[2019-11-18] MEDS: INSULIN GLARGINE SOLOSTAR 100 UNITS/ML 3 ML PEN SC SCH ×2 (09:14→21:00)
[2019-11-18] MEDS: HEPARIN SOD 5,000 UNIT/0.5 ML VIAL SQ SCH ×2 (09:14→21:01)
[2019-11-18] MEDS: INSULIN ASPART 100 UNITS/ML 3 ML PEN SC SCH ×4 (09:16→20:59)
[2019-11-18] MEDS: lisinopriL 10 MG TAB PO SCH (09:18)
[2019-11-18] MEDS: HYDROXYCHLOROQUINE SULFATE 200 MG TAB PO SCH (09:18)
[2019-11-18] MEDS: FOLIC ACID 1 MG TAB PO SCH (09:18)
[2019-11-18] MEDS: GABAPENTIN 600 MG TAB PO SCH ×3 (09:19→20:58)
[2019-11-18] MEDS: ROSUVASTATIN CALCIUM 20 MG TAB PO SCH (09:19)
[2019-11-18] MEDS: sulfaSALAzine 500 MG TABLET PO SCH ×2 (09:19→20:57)
[2019-11-18] MEDS: DULOXETINE HCL 60 MG CAP PO SCH (09:20)
[2019-11-18] MEDS: CLOPIDOGREL BISULFATE 75 MG TAB PO SCH (09:20)
[2019-11-18] MEDS: predniSONE 5 MG TAB PO SCH (09:20)
[2019-11-18] MEDS: NICOTINE 14 MG/24 HR PATCH TD SCH (09:20)
[2019-11-18] MEDS: VANCOMYCIN HCL 750 MG in SODIUM CHLORIDE 0.9% 250 ML IV SCH ×2 (09:59→21:42)
--- NOTE | 2019-11-18 15:41 | Hospitalist Progress Note ---
Date of Service November 18, 2019 Assessment & Plan (1) Cellulitis of left leg: Admitted with increasing left BKA stump pain, erythema and edema about 2 weeks prior to admission Has left BKA wound as in picture Complains of pain but no fever and/or chills Improved on vancomycin, resolution of leukocytosis. Awaiting MRI to rule out osteomyelitis Appreciate Ortho input and recommendation We will continue current antibiotics (2) Electrolyte abnormality: Resolved low Mg, Phos, K and Na. Now all within normal limits. (3) DMII (diabetes mellitus, type 2): New diabetic, may be steroid related as she reports being on chronic prednisone. Hemoglobin A1c is 8.5. Cont with inpatient blood sugar checks and institute basal bolus insulin with correction factor and carb coverage. Titrate as needed. Would prefer to start her on Metformin 500 IR BID going home. (4) Rheumatoid arthritis: Reported being on prednisone 5mg daily which was started. -Hold Humira, methotrexate -Continue sulfasalazine, Plaquenil (5) Tobacco use: Smoking cessation strongly recommended, nicoderm patch in the hospital. (6) Depression with anxiety: Cont Cymbalta per home regimen. (7) DVT prophylaxis: Heparin Full Code Dispo-cont hospitalization. Admission and Anticipated Discharge Date Admission Date: November 15, 2019 Anticipated date of discharge: 11/19/19 Subjective The patient was seen and examined in medical floor She is a 49-year-old female with significant past medical history including rheu matoid arthritis, peripheral arterial disease, aorto iliac occlusive disease status post bilateral BKA and hyperlipidemia was admitted with left stump cellulitis. Could not tolerate MRI but will try again later with Ativan before the MRI Complains of pain in the left stump area but denies any other symptoms Review of Systems Review of Systems: All systems reviewed and are unremarkable except as noted below Musculoskeletal: Bilateral BKA with left stump pain Physical Exam Physical Exam: Sitting at the edge of the bed without any acute symptoms Constitutional: well nourished and + obese; no acute distress and not ill appearing Eyes: PERRL, conjunctivae normal, anicteric sclerae ENMT: external ear and nose normal, oropharynx normal Neck: trachea midline, no thyromegaly Respiratory: normal respiratory effort Auscultation: lungs clear to auscultation bilaterally Cardiovascular: Rate/Rhythm: regular rate and regular rhythm Heart Sounds: no murmur Gastrointestinal (Abdomen): Inspection/Auscultation: abdomen normal to inspection and normal bowel sounds Percussion/Palpation: abdomen soft; abdomen nontender Musculoskeletal: Has bilateral BKA. Left stump is painful and tender on palpation. Neurologic: moves all extremities; no focal motor deficits Lymphatic: no cervical or axillary lymphadenopathy Results & Data ([facility]) Vital Signs (Past 12 Hours) Vital Signs Temp Pulse Resp BP Pulse Ox 11/18/19 07:18 36.4 C L 84 18 104/69 96 Laboratory Results Short CBC 11/18/19 Range/Units 05:59 WBC 11.13 H (4.8-10.8) K/uL Hgb 11.5 L (12.0-16.0) g/dL Hct 36.1 L (37-47) % Plt Count 263 (130-400) K/uL BMP 11/18/19 05:59 Sodium 137 Potassium 4.2 Chloride 103 Carbon Dioxide 26 BUN 10 Creatinine 0.69 Glucose 111 H Calcium 9.5 Medications Administered Current Inpatient Medications Acetaminophen (Tylenol) 650 mg PO Q4H PRN PRN Reason: Pain or Fever Stop: 12/15/19 18:34 Last Admin: 11/18/19 10:27 Dose: 650 mg Documented by: Clopidogrel Bisulfate (Plavix) 75 mg PO DAILY [facility] Stop: 12/16/19 08:59 Last Admin: 11/18/19 09:20 Dose: 75 mg Documented by: Dextrose (Dextrose 50%) 25 - 50 ml IV UD PRN; Protocol PRN Reason: Hypoglycemia Protocol Stop: 12/16/19 13:59 Duloxetine HCl (Cymbalta) 60 mg PO DAILY [facility] Stop: 12/16/19 08:59 Last Admin: 11/18/19 09:20 Dose: 60 mg Documented by: Folic Acid (Folvite) 1 mg PO DAILY [facility] Stop: 12/16/19 08:59 Last Admin: 11/18/19 09:18 Dose: 1 mg Documented by: Gabapentin (Neurontin) 600 mg PO TID [facility] Stop: 12/15/19 20:59 Last Admin: 11/18/19 12:40 Dose: 600 mg Documented by: Glucagon (Glucagen) 1 mg SQ UD PRN; Protocol PRN Reason: Hypoglycemia Protocol Stop: 12/16/19 13:59 Glucose (Dex4 Glucose) 4 - 8 tabs PO UD PRN; Protocol PRN Reason: Hypoglycemia Protocol Stop: 12/16/19 13:59 Glucose (Glucose 40%) 15 - 30 gm PO UD PRN; Protocol PRN Reason: Hypoglycemia Protocol Stop: 12/16/19 13:59 Heparin Sodium (Porcine) (Heparin Sodium (Porcine)) 5,000 units SQ Q12 [facility] Stop: 12/15/19 20:59 Last Admin: 11/18/19 09:14 Dose: 5,000 units Documented by: Hydroxychloroquine Sulfate (Plaquenil) 300 mg PO DAILY [facility] Stop: 12/16/19 08:59 Last Admin: 11/18/19 09:18 Dose: 300 mg Documented by: Vancomycin HCl 750 mg/ Sodium (Chloride) 265 mls @ 125 mls/hr IV Q12H [facility] Stop: 11/22/19 21:59 Last Infusion: 11/18/19 12:43 Dose: Infused Documented by: Insulin Aspart (Novolog Flexpen) 0 units SC ACHS [facility] Stop: 12/16/19 16:29 Last Admin: 11/18/19 12:36 Dose: 2 units Documented by: Insulin Glargine (Lantus Solostar Pen) 10 units SC BID [facility] Stop: 12/16/19 20:59 Last Admin: 11/18/19 09:14 Dose: 10 units Documented by: Lisinopril (Zestril) 10 mg PO DAILY [facility] Stop: 12/16/19 08:59 Last Admin: 11/18/19 09:18 Dose: 10 mg Documented by: Miscellaneous (Remove Nicoderm Patch) 1 ea N/A DAILY@0859 [facility] Stop: 12/16/19 08:58 Last Admin: 11/18/19 09:25 Dose: 1 ea Documented by: Miscellaneous (Carbohydrates For Hypoglycemia) 15 - 30 gm PO UD PRN PRN Reason: Hypoglycemia Protocol Stop: 12/16/19 13:59 Miscellaneous Information (Consult) 1 ea N/A UD PRN PRN Reason: Consult Stop: 12/15/19 19:14 Morphine Sulfate (Morphine Sulfate) 2 mg IV Q4H PRN PRN Reason: Severe Pain Stop: 11/29/19 18:34 Last Admin: 11/15/19 21:58 Dose: 2 mg Documented by: Nicotine (Nicoderm Cq) 14 mg TD QAM [facility] Stop: 12/15/19 18:34 Last Admin: 11/18/19 09:20 Dose: 14 mg Documented by: Olanzapine (Zyprexa) 20 mg PO HS [facility] Stop: 12/15/19 20:59 Last Admin: 11/17/19 21:13 Dose: 20 mg Documented by: Oxycodone HCl (Roxicodone Immediate Rel) 5 mg PO Q6H PRN PRN Reason: Severe Pain Stop: 11/30/19 00:59 Last Admin: 11/18/19 13:37 Dose: 5 mg Documented by: Polyethylene Glycol (Miralax Powder Packet) 17 gm PO DAILY PRN PRN Reason: Constipation Stop: 12/15/19 18:34 Prazosin HCl (Prazosin Hcl) 2 mg PO QPM [facility] Stop: 12/15/19 20:59 Last Admin: 11/17/19 21:13 Dose: 2 mg Documented by: Prednisone (Prednisone) 5 mg PO DAILY [facility] Stop: 12/16/19 08:59 Last Admin: 11/18/19 09:20 Dose: 5 mg Documented by: Rosuvastatin Calcium (Crestor) 20 mg PO DAILY [facility] Stop: 12/16/19 08:59 Last Admin: 11/18/19 09:19 Dose: 20 mg Documented by: Sulfasalazine (Azulfidine) 500 mg PO BID [facility] Stop: 12/15/19 20:59 Last Admin: 11/18/19 09:19 Dose: 500 mg Documented by:
[2019-11-18] MEDS ORDERED: LORazepam 0.5 MG/1 ML VIAL IV PRN (15:50)
[2019-11-18] MEDS: MoRPHine SULFATE 2 MG/ML CARP IV PRN ×2 (19:04→19:32)
[2019-11-18] MEDS ORDERED: GADOBUTROL 65ML VIAL IV PRN (20:29)
[2019-11-18] MEDS: OLANZapine 20 MG TABLET PO SCH (20:58)
[2019-11-18] MEDS: PRAZOSIN HCL 1 MG CAP PO SCH (20:58)
--- NOTE | 2019-11-18 21:15 | Magnetic Resonance Report ---
MRI OF THE RIGHT LOWER EXTREMITY COMBO CLINICAL HISTORY: Right leg pain. Clinical concern for infection. COMPARISON STUDY: Radiographs of the left knee dated 11/15/2019. TECHNIQUE: MRI of the right lower extremity is performed utilizing various T1 and T2-weighted sequenc es in the axial, sagittal, and coronal planes. Images performed from the proximal femoral shaft to th e below-knee amputation. Contrast-enhanced sequences are acquired following the IV administration of 6 cc of Gadavist. The examination is significantly compromised by motion artifact. FINDINGS: There is postoperative change from a below-knee amputation. Normal marrow signal intensity is identified involving the visualized femoral shaft. Question minimal marrow edema identified at the amputation margin in the proximal tibia. This is not well evaluated. There is generalized atrophy of the regional musculature. Intramuscular edema is noted within the quadriceps musculature and the rem aining gastrocnemius musculature in the upper calf. Superficial and deep soft tissue edema is identif ied in the distal femur and proximal calf. There is also edema of the partially visualized right uppe r calf. There is no evidence of organized fluid collection. There is a small knee joint effusion. IMPRESSION: 1. Significantly motion compromised examination. 2. No marrow signal abnormality is identified in the visualized portions of the left femur. 3. Question mild marrow edema within the proximal tibia at the resection margin. This is not well ass essed. Osteomyelitis would be impossible to exclude and clinical correlation will be essential. 4. Superficial and deep soft tissue edema is identified in the distal thigh and the visualized upper calf. There is also edema of the partially imaged right calf. This is nonspecific. Correlate clinical ly for evidence of cellulitis. 5. No organized fluid collection is identified. 6. There is intramuscular edema identified within the left quadriceps and gastrocnemius musculature i ndicating a nonspecific myositis. Again, clinical correlation will be required. Dictated: 11/18/2019 8:50 PM Transcribed: 11/18/2019 9:06 PM Bibi [id number] [email or web address] Electronically signed by: Ryan Chilel M.D. 11/18/2019 9:14 PM
[2019-11-19] MEDS: ROSUVASTATIN CALCIUM 20 MG TAB PO SCH (09:16)
[2019-11-19] MEDS: HYDROXYCHLOROQUINE SULFATE 200 MG TAB PO SCH (09:16)
[2019-11-19] MEDS: FOLIC ACID 1 MG TAB PO SCH (09:16)
[2019-11-19] MEDS: predniSONE 5 MG TAB PO SCH (09:16)
[2019-11-19] MEDS: sulfaSALAzine 500 MG TABLET PO SCH ×2 (09:16→21:33)
[2019-11-19] MEDS: GABAPENTIN 600 MG TAB PO SCH ×3 (09:16→21:34)
[2019-11-19] MEDS: CLOPIDOGREL BISULFATE 75 MG TAB PO SCH (09:16)
[2019-11-19] MEDS: DULOXETINE HCL 60 MG CAP PO SCH (09:16)
[2019-11-19] MEDS: HEPARIN SOD 5,000 UNIT/0.5 ML VIAL SQ SCH ×2 (09:18→21:42)
[2019-11-19] MEDS: INSULIN GLARGINE SOLOSTAR 100 UNITS/ML 3 ML PEN SC SCH ×2 (09:18→21:44)
[2019-11-19] MEDS: INSULIN ASPART 100 UNITS/ML 3 ML PEN SC SCH ×4 (09:19→21:45)
[2019-11-19] MEDS: NICOTINE 14 MG/24 HR PATCH TD SCH (09:21)
[2019-11-19] MEDS: lisinopriL 10 MG TAB PO SCH (09:22)
[2019-11-19] MEDS ORDERED: VANCOMYCIN TROUGH ONE (09:30)
[2019-11-19 09:35] LABS: Hematocrit (blood only) 33.8 % (37-47); Hemoglobin 10.9 g/dL (12.0-16.0); Mean Corpuscular Hemoglobin 27.7 pg (25-34); Mean Corpuscular Hgb Conc 32.2 g/dL (32-36); Mean Platelet Volume 8.4 fL (7.4-10.4); Platelet Count 235 K/uL (130-400); RDW Coefficient of Variation 13.5 % (11.5-14.5); Red Blood Count 3.93 M/uL (4.2-5.4); White Blood Count 10.62 K/uL (4.8-10.8)
[2019-11-19] MEDS: OXYCODONE HCL IR 5 MG TAB (IMMEDIATE RELEASE) PO PRN ×3 (09:39→19:26)
[2019-11-19 10:05] LABS: Creatinine Clr Calc Pharmacy 68.8 ml/min; Est GFR (African American) 98.1; Est GFR (Non-African American) 84.6
[2019-11-19] MEDS: VANCOMYCIN HCL 750 MG in SODIUM CHLORIDE 0.9% 250 ML IV SCH ×2 (10:26→21:46)
--- NOTE | 2019-11-19 11:18 | Pharmacy Report ---
Pharmacy Abx Dose Short Note - Date of Service November 19, 2019 - Assessment & Plan Assessment * 49 year old F receiving VANCOMYCIN IV for treatment of BKA stump cellulitis, possible osteomyelitis * MRI read as: "Question mild marrow edema within the proximal tibia at the resection margin. This is not well assessed. Osteomyelitis would be impossible to exclude and clinical correlation will be essential" * Day # 5 of antimicrobial therapy * Wound cx showing low counts of probable skin mojgan * Renal fxn appears to be stable, however SCr did climb the last 2 days...will continue to monitor. UOP not being followed Plan Vancomycin * Trough level of 17.1 mcg/mL is therapeutic * Continue dose of 750 mg IV every 12 hours * Goal trough level for possible osteomyelitis : 15 to 20 mcg/mL * Will repeat trough level in 2-3 days if therapy to continue Pharmacy will continue to follow and will adjust dose/frequency as necessary. Thank you.
[2019-11-19] MEDS: ACETAMINOPHEN 325 MG TAB PO PRN ×2 (12:58→19:42)
--- NOTE | 2019-11-19 13:26 | Infectious Disease Consult ---
Date of Consultation November 19, 2019 Assessment & Plan (1) Cellulitis of left leg: continue abx, MRI did not make definitive diagnosis of osteo, will check inflammatory markers. I feel she would benefit from surgial debridement and deep cultures to better determine abx course. History of Present Illness Attending Physician: Arpit Meyer MD pt admitted after worsening redness/pain surgical stump, pt suffered fall at home. was seen by pcp, given keflex, no improvement, came to ER. placed on vanco, tolerating well. wbc 11 in ER, 10 today. 11/14 blood cultures negative, wound culture normal skin mojgan only. MRI femur done on 11/17 - poor quality due to motion artifact, no abscess noted, myositis noted, "impossible to exclude osteomyelitis" but no osteo noted. Pt remains on abx, has pain in leg, unchanged. no abd pain, no n/v/d. no f/c. had ortho eval, if needs additional surgery will need transfer [place] [facility] [place] states she [place] there yearly. no abd pain, no n/v/d. ID consulted for osteo. Allergies Allergy/AdvReac Type Severity Reaction Status Date / Time onion Allergy Verified 11/16/19 12:54 Home Medications Home Medications Medication Instructions Recorded Confirmed Type adalimumab 40 mg/0.8 mL See Rx Instructions SQ .COMPLEX 03/20/19 11/15/19 History subcutaneous syringe kit clopidogrel 75 mg tablet 75 mg PO DAILY 03/20/19 11/15/19 History duloxetine 60 mg capsule,delayed 60 mg PO DAILY cap 03/20/19 11/15/19 History release folic acid 1 mg tablet 1 mg PO DAILY 03/20/19 11/15/19 History hydroxychloroquine 200 mg tablet 300 mg PO DAILY tab 03/20/19 11/15/19 History methotrexate sodium (PF) 50 mg 50 mg .ROUTE WK 03/20/19 11/15/19 History solution for injection olanzapine 20 mg tablet 20 mg PO HS tab 03/20/19 11/15/19 History prazosin 2 mg capsule 2 mg PO QPM 03/20/19 11/15/19 History sulfasalazine 500 mg tablet 500 mg PO BID tab 03/20/19 11/15/19 History gabapentin 600 mg PO TID 11/15/19 11/15/19 History lisinopril 10 mg PO DAILY 11/15/19 11/15/19 History rosuvastatin 20 mg PO DAILY 11/15/19 11/15/19 History prednisone 5 mg PO DAILY 11/16/19 11/16/19 History Patient History Medical History Acquired absence of left leg below knee (Acute) Acquired absence of right leg below knee (Acute) Adjustment disorder with mixed anxiety and depressed mood (Acute) Amput below knee, unilat (Acute) Chronic hyponatremia Chronic pain syndrome (Acute) Depression with anxiety Inflammatory polyarthropathy (Acute) PVD (peripheral vascular disease) (Acute) Rheumatoid arthritis (Acute) Surgical History History of below-knee amputation of both lower extremities Hx of cholecystectomy (Resolved) Family History Other Cancer Coronary heart disease Hypertension Stroke Social History Preferred Language: Zambian Communication Ability: Effective Hearing Ability: Normal 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 Beliefs That Will Affect Care: None marital status: Legally Current Living Situation: Alone current occupational status: disabled Other Information That Helps Us Care for You: No Feels Safe at Home: Yes Smoking Status: Light tobacco smoker Tobacco Type: cigarettes ; Cigarettes Per Day: 5 cigarettes a day ; Do You Dip or Chew Tobacco: No ; Second Hand Exposure: No ; Tobacco Cessation Education Requested by Patient: No Hx Alcohol Use: No Hx Substance Use: No Review of Systems Review of Systems: All systems reviewed & are unremarkable except as noted in HPI & below Physical Exam Constitutional: WD/WN, vitals as above Eyes: PERRL, conjunctivae normal, anicteric sclerae ENMT: external ear and nose normal, oropharynx normal Neck: normal visual inspection Respiratory: normal respiratory effort, lungs clear to auscultation Cardiovascular: RRR, no murmur, no edema Gastrointestinal (Abdomen): normal bowel sounds, soft, nontender, no hepatosplenomegaly Musculoskeletal: no cyanosis or clubbing, extremities motor strength 5/5 Skin: no rashes, warm and dry + wound (dressing with drainge, erythema, discoloration) and + erythema Psychiatric: A+Ox3, euthymic affect Results & Data ([facility]) Vital Signs (Past 12 Hours) Vital Signs Temp Pulse Pulse Resp BP Pulse Ox 11/19/19 09:12 81 112/74 11/19/19 06:51 36.9 C 86 16 115/75 95 11/19/19 04:22 100/64 11/19/19 01:45 93/67 L Laboratory Results Microbiology 11/16/19 01:30 Leg,Right Gram Stain - Final 11/16/19 01:30 Leg,Right Wound Culture - Final Low counts mixed probable skin microbiota. No further identifications or sensitivities to follo w. 11/15/19 16:57 Blood Aerobic Blood Culture - Preliminary No growth in Aerobic bottle after 48 hours. 11/15/19 16:57 Blood Anaerobic Blood Culture - Preliminary No growth in Anaerobic bottle after 48 hours. 11/15/19 16:52 Blood Aerobic Blood Culture - Preliminary No growth in Aerobic bottle after 48 hours. 11/15/19 16:52 Blood Anaerobic Blood Culture - Preliminary No growth in Anaerobic bottle after 48 hours. PG Care Time/CCT Total # of Minutes Spent Total Time Spent with Patient: Total time spent is greater than 50% in coordination of care (as documented) at patient's floor/unit and/or counseling patient: Coding Level of Care Code 42777 Inpt Consult Level 4 Diagnoses Cellulitis of left leg L03.116
--- NOTE | 2019-11-19 15:36 | Communication Note ---
Date of Service: November 19, 2019 Pt's case revisited after MRI. Currently, no evidence of a fluid collection at this time. No definitive evidence of osteomyelitis noted either. I have spoken to Joan Mckeon from wound care team today. No major changes noted in the wound area on the left BKA stump. Medial/lateral ulcer areas noted but not open and draining. Medial aspect with darkened necrotic tissue that is soft. Lateral side much less so. I have spoken to Dr Allen and to Dr Morton about the patients case, new MRI results etc. For now, we will plan no surgical debridement at this time. Continue antibiotics as per Med Team and follow up with [facility] this week vs early next week. Please call with any further changes or questions.
[2019-11-19] MEDS: PRAZOSIN HCL 1 MG CAP PO SCH (21:35)
[2019-11-19] MEDS: OLANZapine 20 MG TABLET PO SCH (21:35)
[2019-11-19] MEDS: MoRPHine SULFATE 2 MG/ML CARP IV PRN (21:38)
[2019-11-20 06:56] LABS: Est GFR (African American) 119.9; Est GFR (Non-African American) 103.4
[2019-11-20] MEDS: OXYCODONE HCL IR 5 MG TAB (IMMEDIATE RELEASE) PO PRN ×2 (08:30→12:39)
[2019-11-20] MEDS: GABAPENTIN 600 MG TAB PO SCH (09:24)
[2019-11-20] MEDS: HYDROXYCHLOROQUINE SULFATE 200 MG TAB PO SCH (09:25)
[2019-11-20] MEDS: DULOXETINE HCL 60 MG CAP PO SCH (09:25)
[2019-11-20] MEDS: FOLIC ACID 1 MG TAB PO SCH (09:25)
[2019-11-20] MEDS: predniSONE 5 MG TAB PO SCH (09:26)
[2019-11-20] MEDS: lisinopriL 10 MG TAB PO SCH (09:26)
[2019-11-20] MEDS: ROSUVASTATIN CALCIUM 20 MG TAB PO SCH (09:26)
[2019-11-20] MEDS: CLOPIDOGREL BISULFATE 75 MG TAB PO SCH (09:26)
[2019-11-20] MEDS: sulfaSALAzine 500 MG TABLET PO SCH (09:27)
[2019-11-20] MEDS: NICOTINE 14 MG/24 HR PATCH TD SCH (09:28)
[2019-11-20] MEDS: HEPARIN SOD 5,000 UNIT/0.5 ML VIAL SQ SCH (09:29)
[2019-11-20] MEDS: INSULIN GLARGINE SOLOSTAR 100 UNITS/ML 3 ML PEN SC SCH (09:31)
[2019-11-20] MEDS: INSULIN ASPART 100 UNITS/ML 3 ML PEN SC SCH ×2 (09:32→12:41)
[2019-11-20] MEDS: VANCOMYCIN HCL 750 MG in SODIUM CHLORIDE 0.9% 250 ML IV SCH (09:36)
[2019-11-20] MEDS: ACETAMINOPHEN 325 MG TAB PO PRN (09:36)
--- NOTE | 2019-11-20 10:35 | Pharmacy Report ---
Pharmacy Abx Dose Short Note - Date of Service November 20, 2019 - Assessment & Plan Assessment 49 year old F receiving [] for treatment of [] Day # []/[] of antimicrobial therapy. Plan Vancomycin * Trough level of [] mcg/mL is [therapeutic][subtherapeutic][supratherapeutic] * Continue dose of [] mg IV every [] hours OR Change to [] mg IV every [] hours * Goal trough level for [] : [] to [] mcg/mL * Trough or random level ordered for: []/[]/[] Pharmacy will continue to follow and will adjust dose/frequency as necessary. Thank you.
[2019-11-20] MEDS ORDERED: DOXYCYCLINE HYCLATE 100 MG CAP PO SCH (11:30)
[2019-11-20] MEDS ORDERED: CEFDINIR 300 MG CAP PO SCH (11:45)
--- NOTE | 2019-11-20 11:51 | Hospitalist Progress Note ---
Date of Service November 20, 2019 Assessment & Plan (1) Cellulitis of left leg: Admitted with increasing left BKA stump pain, erythema and edema about 2 weeks prior to admission Has left BKA wound as in picture Complains of pain but no fever and/or chills Improved on vancomycin, resolution of leukocytosis. Awaiting MRI to rule out osteomyelitis Appreciate Ortho input and recommendation Minimal pain in the left leg wound No fever and/or chills and white count is normal ESR remains more than 90 and CRP more than 12 indicators for; ongoing infection and/or inflammation We will change antibiotic to oral doxy and Cefdinir for a total of 14 days Levaquin is current indicated due to interaction with chloroquine which can cause QT prolongation Discharge home this afternoon (2) Electrolyte abnormality: Resolved low Mg, Phos, K and Na. Now all within normal limits. (3) DMII (diabetes mellitus, type 2): New diabetic, may be steroid related as she reports being on chronic prednisone. Hemoglobin A1c is 8.5. Cont with inpatient blood sugar checks and institute basal bolus insulin with correction factor and carb coverage. Titrate as needed. Would prefer to start her on Metformin 500 IR BID going home. (4) Rheumatoid arthritis: Reported being on prednisone 5mg daily which was started. -Hold Humira, methotrexate -Continue sulfasalazine, Plaquenil -Remains stable (5) Tobacco use: Smoking cessation strongly recommended, nicoderm patch in the hospital. (6) Depression with anxiety: Cont Cymbalta per home regimen. (7) DVT prophylaxis: Heparin Full Code Dispo-cont hospitalization. Admission and Anticipated Discharge Date Admission Date: November 15, 2019 Anticipated date of discharge: 11/19/19 Subjective The patient was seen and examined in medical floor She is a 49-year-old female with significant past medical history including rheumatoid arthritis, peripheral arterial disease, aorto iliac occlusive disease status post bilateral BKA and hyperlipidemia was admitted with left stump cellulitis. Could not tolerate MRI but will try again later with Ativan before the MRI Complains of pain in the left stump area but denies any other symptoms 11/20/2019 The patient was seen and examined in medical floor She complains to have some pain in the left leg stump Denies any fever and/or chills and feels better otherwise Review of Systems Review of Systems: All systems reviewed and are unremarkable except as noted below Musculoskeletal: Increasing pain left leg stump. No more swelling than before and moderate tenderness on palpation. No redness Physical Exam Physical Exam: Sitting at the edge of the bed without any acute symptoms Constitutional: well nourished and + obese; no acute distress and not ill appearing Eyes: PERRL, conjunctivae normal, anicteric sclerae ENMT: external ear and nose normal, oropharynx normal Neck: trachea midline, no thyromegaly Respiratory: normal respiratory effort Auscultation: lungs clear to auscultation bilaterally Cardiovascular: Rate/Rhythm: regular rate and regular rhythm Heart Sounds: no murmur Gastrointestinal (Abdomen): Inspection/Auscultation: abdomen normal to inspection and normal bowel sounds Percussion/Palpation: abdomen soft; abdomen nontender Neurologic: moves all extremities; no focal motor deficits Lymphatic: no cervical or axillary lymphadenopathy Results & Data ([facility]) Vital Signs (Past 12 Hours) Vital Signs Temp Pulse Pulse Resp BP BP Pulse Ox 11/20/19 07:07 36.8 C 80 16 103/70 96 11/20/19 00:42 37.0 C 80 16 118/77 96 Laboratory Results [facility] 11/20/19 05:47 Creatinine 0.68 Medications Administered Current Inpatient Medications Acetaminophen (Tylenol) 650 mg PO Q4H PRN PRN Reason: Pain or Fever Stop: 12/15/19 18:34 Last Admin: 11/20/19 09:36 Dose: 650 mg Documented by: Cefdinir (Omnicef Cap) 300 mg PO BID [facility]; Protocol Stop: 11/27/19 11:44 Clopidogrel Bisulfate (Plavix) 75 mg PO DAILY [facility] Stop: 12/16/19 08:59 Last Admin: 11/20/19 09:26 Dose: 75 mg Documented by: Dextrose (Dextrose 50%) 25 - 50 ml IV UD PRN; Protocol PRN Reason: Hypoglycemia Protocol Stop: 12/16/19 13:59 Doxycycline Hyclate (Vibramycin) 100 mg PO BID [facility]; Protocol Stop: 11/27/19 11:29 Duloxetine HCl (Cymbalta) 60 mg PO DAILY [facility] Stop: 12/16/19 08:59 Last Admin: 11/20/19 09:25 Dose: 60 mg Documented by: Folic Acid (Folvite) 1 mg PO DAILY [facility] Stop: 12/16/19 08:59 Last Admin: 11/20/19 09:25 Dose: 1 mg Documented by: Gabapentin (Neurontin) 600 mg PO TID [facility] Stop: 12/15/19 20:59 Last Admin: 11/20/19 09:24 Dose: 600 mg Documented by: Gadobutrol (Gadavist 65ml) 6 ml IV ONCE PRN PRN Reason: Interaction Checking Stop: 11/22/19 20:28 Last Admin: 11/18/19 20:29 Dose: 6 ml Documented by: Glucagon (Glucagen) 1 mg SQ UD PRN; Protocol PRN Reason: Hypoglycemia Protocol Stop: 12/16/19 13:59 Glucose (Dex4 Glucose) 4 - 8 tabs PO UD PRN; Protocol PRN Reason: Hypoglycemia Protocol Stop: 12/16/19 13:59 Glucose (Glucose 40%) 15 - 30 gm PO UD PRN; Protocol PRN Reason: Hypoglycemia Protocol Stop: 12/16/19 13:59 Heparin Sodium (Porcine) (Heparin Sodium (Porcine)) 5,000 units SQ Q12 [facility] Stop: 12/15/19 20:59 Last Admin: 11/20/19 09:29 Dose: 5,000 units Documented by: Hydroxychloroquine Sulfate (Plaquenil) 300 mg PO DAILY [facility] Stop: 12/16/19 08:59 Last Admin: 11/20/19 09:25 Dose: 300 mg Documented by: Vancomycin HCl 750 mg/ Sodium (Chloride) 265 mls @ 125 mls/hr IV Q12H [facility] Stop: 11/22/19 21:59 Last Admin: 11/20/19 09:36 Dose: 125 mls/hr Documented by: Insulin Aspart (Novolog Flexpen) 0 units SC ACHS [facility] Stop: 12/16/19 16:29 Last Admin: 11/20/19 09:32 Dose: 4 units Documented by: Insulin Glargine (Lantus Solostar Pen) 10 units SC BID [facility] Stop: 12/16/19 20:59 Last Admin: 11/20/19 09:31 Dose: 10 units Documented by: Lisinopril (Zestril) 10 mg PO DAILY [facility] Stop: 12/16/19 08:59 Last Admin: 11/20/19 09:26 Dose: 10 mg Documented by: Miscellaneous (Remove Nicoderm Patch) 1 ea N/A DAILY@0859 [facility] Stop: 12/16/19 08:58 Last Admin: 11/20/19 09:29 Dose: 1 ea Documented by: Miscellaneous (Carbohydrates For Hypoglycemia) 15 - 30 gm PO UD PRN PRN Reason: Hypoglycemia Protocol Stop: 12/16/19 13:59 Miscellaneous Information (Consult) 1 ea N/A UD PRN PRN Reason: Consult Stop: 12/15/19 19:14 Morphine Sulfate (Morphine Sulfate) 2 mg IV Q4H PRN PRN Reason: Severe Pain Stop: 11/29/19 18:34 Last Admin: 11/19/19 21:38 Dose: 2 mg Documented by: Nicotine (Nicoderm Cq) 14 mg TD QAM [facility] Stop: 12/15/19 18:34 Last Admin: 11/20/19 09:28 Dose: 14 mg Documented by: Olanzapine (Zyprexa) 20 mg PO HS [facility] Stop: 12/15/19 20:59 Last Admin: 11/19/19 21:35 Dose: 20 mg Documented by: Oxycodone HCl (Roxicodone Immediate Rel) 5 mg PO Q4H PRN PRN Reason: Severe Pain Stop: 11/30/19 14:08 Last Admin: 11/20/19 08:30 Dose: 5 mg Documented by: Polyethylene Glycol (Miralax Powder Packet) 17 gm PO DAILY PRN PRN Reason: Constipation Stop: 12/15/19 18:34 Prazosin HCl (Prazosin Hcl) 2 mg PO QPM [facility] Stop: 12/15/19 20:59 Last Admin: 11/19/19 21:35 Dose: 2 mg Documented by: Prednisone (Prednisone) 5 mg PO DAILY [facility] Stop: 12/16/19 08:59 Last Admin: 11/20/19 09:26 Dose: 5 mg Documented by: Rosuvastatin Calcium (Crestor) 20 mg PO DAILY [facility] Stop: 12/16/19 08:59 Last Admin: 11/20/19 09:26 Dose: 20 mg Documented by: Sulfasalazine (Azulfidine) 500 mg PO BID [facility] Stop: 12/15/19 20:59 Last Admin: 11/20/19 09:27 Dose: 500 mg Documented by:
--- NOTE | 2019-11-20 16:02 | Wound Consultation ---
Date of Consultation November 18, 2019 Assessment & Plan (1) Cellulitis of left leg: Patient with cellulitis of left bka stump. No debridement was required. Wound will be dressed with aquacel ag. Patient was not able to tolerate MRI. Will need further imaging. Will likely need surgical debridement. Continue with abx. Patient can follow in office after discharge. Thank you for allowing me to participate in the care of this patient. History of Present Illness Reason for Consultation: cellulitis of stump Attending Physician: Arpit Meyer MD History of Present Illness This is a 49 year old female with PMH of RA, PAD, aortoilliac occlusive disease s/p b/l bka and HLD admitted with cellulitis of left stump. Orthopedics has evaluated patient and ordered MRI to rule out osteomyelitis or abscess. Patient did not tolerate MRI yet secondary to pain. She denies fevers or chills. Allergies Allergy/AdvReac Type Severity Reaction Status Date / Time onion Allergy Verified 11/16/19 12:54 Home Medications Home Medications Medication Instructions Recorded Confirmed Type adalimumab 40 mg/0.8 mL See Rx Instructions SQ .COMPLEX 03/20/19 11/15/19 History subcutaneous syringe kit clopidogrel 75 mg tablet 75 mg PO DAILY 03/20/19 11/15/19 History duloxetine 60 mg capsule,delayed 60 mg PO DAILY cap 03/20/19 11/15/19 History release folic acid 1 mg tablet 1 mg PO DAILY 03/20/19 11/15/19 History hydroxychloroquine 200 mg tablet 300 mg PO DAILY tab 03/20/19 11/15/19 History methotrexate sodium (PF) 50 mg 50 mg .ROUTE WK 03/20/19 11/15/19 History solution for injection olanzapine 20 mg tablet 20 mg PO HS tab 03/20/19 11/15/19 History prazosin 2 mg capsule 2 mg PO QPM 03/20/19 11/15/19 History sulfasalazine 500 mg tablet 500 mg PO BID tab 03/20/19 11/15/19 History gabapentin 600 mg PO TID 11/15/19 11/15/19 History lisinopril 10 mg PO DAILY 11/15/19 11/15/19 History rosuvastatin 20 mg PO DAILY 11/15/19 11/15/19 History prednisone 5 mg PO DAILY 11/16/19 11/16/19 History Lactobacillus acidoph-L.bulgar 1 tab PO TID #30 tab 11/20/19 Rx [Lactinex] cefdinir 300 mg PO BID 9 Days #18 cap 11/20/19 Rx doxycycline hyclate 100 mg PO BID 9 Days #18 cap 11/20/19 Rx nicotine 14 mg TRANSDERMAL QAM 30 Days #30 11/20/19 Rx ea oxycodone 5 mg PO Q4H PRN 3 Days #12 tab 11/20/19 Rx Patient History Medical History Acquired absence of left leg below knee (Acute) Acquired absence of right leg below knee (Acute) Adjustment disorder with mixed anxiety and depressed mood (Acute) Amput below knee, unilat (Acute) Chronic hyponatremia Chronic pain syndrome (Acute) Depression with anxiety Inflammatory polyarthropathy (Acute) PVD (peripheral vascular disease) (Acute) Rheumatoid arthritis (Acute) Surgical History History of below-knee amputation of both lower extremities Hx of cholecystectomy (Resolved) Family History Other Cancer Coronary heart disease Hypertension Stroke Social History Preferred Language: Lebanese Communication Ability: Effective Hearing Ability: Normal [place] 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 There is area of fluctuance. Neurologic: awake; not confused Psychiatric: A+Ox3, euthymic affect Results & Data Vital Signs (Past 12 Hours) Vital Signs Temp Pulse Pulse Resp BP BP Pulse Ox 11/20/19 13:07 36.8 C 80 80 16 118/77 103/70 96 11/20/19 07:07 36.8 C 80 16 103/70 96 PG Care Time/CCT Total # of Minutes Spent Total Time Spent with Patient: Total time spent is greater than 50% in coordination of care (as documented) at patient's floor/unit and/or counseling patient: Coding Level of Care Code 20109 Inpt Consult Level 3 Diagnoses Cellulitis of left leg L03.116
--- NOTE | 2019-11-21 14:30 | Discharge Summary ---
Date of Service November 21, 2019 Admission HPI Per Admitting Provider Pt is 49 y/o F with PMH RA, PAD, aortoiliac occlusive disease S/P bilateral BKA, HLD presented to ER with complaint of left BKA stump pain, erythema, edema x couple weeks. Patient states approximately 4 weeks ago she was transferring when she fell onto her left stump. Patient states had some discomfort at time. States approximately 2 weeks later started noting edema to knee and stump and then noticed redness at distal end. She reports she had a blister to medial aspect of stump which broke open. He was seen at [facility] ER on 10/31/2019 had ultrasound LLE with no DVT, had knee x-ray with no signs of osteomyelitis and was given pain medicine and HCTZ for several days. Pt reports no improvement and was seen again at [facility] ER and was started on cephalexin. Patient states no improvement since. Patient admits that she has not been elevating the leg. She reports chronic burning pain of BLE since BKA and states was to follow with pain management for possible injections. Denies any fever or chills. States last night she vomited twice. Denies diaphoresis, D/C, CORDERO, dizziness, syncope, vision changes, neck pain, CP, SOB, orthopnea, palpitations, cough, sore throat, choking, otalgia, rhinorrhea, abdominal pain, paresthesias, weakness, rashes, urinary symptoms. Admission Exam Per Admitting Provider Physical Exam: General: no acute distress, WDWN Head: normocephalic, atraumatic Eyes: PERRL, EOM's intact, conjunctiva non-injected, anicteric ENT: normal inspection external ears, nose, mucous membranes moist Neck: supple, trachea midline Lungs: clear, no respiratory distress, no wheezing/rhonchi/rales CV: RRR, no murmur Abd: normal BS, soft, non-tender Ext: no cyanosis, Bilateral BKA. Right knee stump without erythema and edema. Left knee stump with diffuse edema and tenderness to palpation, distal aspect stump with erythema, medial aspect with ulceration with escar Neuro: A&O x 3, no focal deficits noted, normal affect Skin: warm, dry; LLE as above Principal Diagnosis Cellulitis of her left leg stump, rheumatoid arthritis, diabetes type 2, peripheral arterial disease with bilateral BKA Discharge Exam Constitutional well nourished and + obese; no acute distress and not ill appearing Eyes PERRL, conjunctivae normal, anicteric sclerae ENMT external ear and nose normal, oropharynx normal Neck trachea midline, no thyromegaly Respiratory normal respiratory effort Auscultation: lungs clear to auscultation bilaterally Cardiovascular Rate/Rhythm: regular rate and regular rhythm Heart Sounds: no murmur Gastrointestinal (Abdomen) Inspection/Auscultation: abdomen normal to inspection and normal bowel sounds Percussion/Palpation: abdomen soft; abdomen nontender Neurologic moves all extremities; no focal motor deficits Lymphatic no cervical or axillary lymphadenopathy Discharge Data Allergies Allergy/AdvReac Type Severity Reaction Status Date / Time onion Allergy Verified 11/16/19 12:54 Consultations 11/15/19 16:03 ED Decision to Admit Stat 11/15/19 18:35 Consult Case Management - Discharge Planning Routine Consult Orthopedic Surgery Routine Consult Wound Care Provider Routine 11/19/19 09:22 Consult Infectious Diseases Routine Ordered Studies 11/18/19 15:49 MR femur LT wo/w con Routine Hospital Course (1) Cellulitis of left leg: Admitted with increasing left BKA stump pain, erythema and edema about 2 weeks prior to admission Has left BKA wound as in picture Complains of pain but no fever and/or chills Improved on vancomycin, resolution of leukocytosis. Awaiting MRI to rule out osteomyelitis Appreciate Ortho input and recommendation Minimal pain in the left leg wound No fever and/or chills and white count is normal ESR remains more than 90 and CRP more than 12 indicators for; ongoing infection and/or inflammation We will change antibiotic to oral doxy and Cefdinir for a total of 14 days Levaquin is current indicated due to interaction with chloroquine which can cause QT prolongation Discharge home this afternoon (2) Electrolyte abnormality: Resolved low Mg, Phos, K and Na. Now all within normal limits. (3) DMII (diabetes mellitus, type 2): New diabetic, may be steroid related as she reports being on chronic prednisone. Hemoglobin A1c is 8.5. Cont with inpatient blood sugar checks and institute basal bolus insulin with correction factor and carb coverage. Titrate as needed. Would prefer to start her on Metformin 500 IR BID going home. (4) Rheumatoid arthritis: Reported being on prednisone 5mg daily which was started. -Hold Humira, methotrexate -Continue sulfasalazine, Plaquenil -Remains stable (5) Tobacco use: Smoking cessation strongly recommended, nicoderm patch in the hospital. (6) Depression with anxiety: Cont Cymbalta per home regimen. (7) DVT prophylaxis: Heparin Full Code Dispo-cont hospitalization. Total Time Total Time Spent Total Time Spent (In Minutes): 35 minutes Total Time Includes: Examination of the Patient, Discharge Planning, Medication Reconciliation and Communication With Other Providers Discharge Plan Discharge Items Patient Disposition: Home - Self-Care Reason For Visit: CELLULITIS Discharge Diagnosis: Cellulitis of her left leg stump, rheumatoid arthritis, diabetes type 2, peripheral arterial disease with bilateral BKA Condition on Discharge: Fair Activity: Resume your previous activity Non-emergency contact: Primary Care Provider Call non-emergency contact if: you have any medication questions Follow-up/Referrals: Thanh Hanna DO [Primary Care Provider] - (Please make an appointment with your primary care physician within 1 week. Keep appointments with the outpatient wound clinic- 11/22/2019 @ 8:30 [address], [place]) Diet: Carb Consistent or DM2 Addtl Attending Provider Instructions: Take precaution to avoid falls Keep your wound clean and dry Keep keep doing dressing your wound as advised Pending Studies at Discharge: No Stand-Alone Forms: [employer], Opioid Pain Management, Work/School Release (Inpt), Smoking Cessation Medications and DC Order Prescriptions: New doxycycline hyclate 100 mg Capsule 100 mg PO BID 9 Days Qty: 18 RF: 0 cefdinir 300 mg Capsule 300 mg PO BID 9 Days Qty: 18 RF: 0 nicotine 7 mg/24 hr Patch 24 Hour 14 mg transdermal QAM 30 Days Qty: 30 RF: 0 oxycodone 5 mg Tablet 5 mg PO Q4H PRN (Reason: pain) 3 Days Qty: 12 RF: 0 Lactinex 1 million cell tablet,chewable 1 tab PO TID Qty: 30 RF: 0 Continued clopidogrel [Plavix] 75 mg tablet 75 mg PO DAILY RF: 0 prazosin 2 mg capsule 2 mg PO QPM RF: 0 sulfasalazine 500 mg tablet 500 mg PO BID RF: 0 duloxetine [Cymbalta] 60 mg capsule,delayed release(DR/EC) 60 mg PO DAILY RF: 0 folic acid 1 mg tablet 1 mg PO DAILY RF: 0 hydroxychloroquine 200 mg tablet 300 mg PO DAILY RF: 0 methotrexate sodium (PF) 50 mg recon soln 50 mg .Route WK RF: 0 Humira 40 mg/0.8 mL syringe kit See Rx Instructions SQ .COMPLEX RF: 0 olanzapine [Zyprexa] 20 mg tablet 20 mg PO HS RF: 0 rosuvastatin 20 mg tablet 20 mg PO DAILY RF: 0 gabapentin 600 mg tablet 600 mg PO TID RF: 0 lisinopril 10 mg tablet 10 mg PO DAILY RF: 0 prednisone 5 mg tablet 5 mg PO DAILY RF: 0 Discharge Orders: Discharge Order (Routine); Ordered 11/20/19 Ordered By: Arpit Alonzo/Other Patient Handouts: Diabetes Resources, Discharge Instructions for Cellulitis, Dressing Change Dc Admission Data Admit Date/Time: 11/15/19 16:20 Attending Provider: Arpit Meyer Admit Provider: Dutch Olsen Primary Care Provider: Thanh Hanna Other Providers: Sean Allen Jennifer ; Chauncey Bauman Other Interventions: Discharge Summary Assessment (RN) Last Done: 11/20/19 13:07 DC Date/Time DO NOT enter until pt leaves facility: 11/20/19 13:50
[2019-11-22] MEDS ORDERED: VANCOMYCIN TROUGH ONE (09:30)
== END 2019-11-20 13:50 | disposition home or self-care (01) | DRG 603 ==
LOC: ED 13:39 → 2N 16:20 → SUATTDRO 16:20 → 2N 18:09 → 2W 11-16 → 3N 11-16 18:40

== ENCOUNTER 2019-11-30 15:28 | Inpatient (IN) ==
[2019-11-30] MEDS ORDERED: ONDANSETRON INJ 2 MG/ML 2 ML VIAL IV STA (15:52)
[2019-11-30] MEDS ORDERED: SODIUM CHLORIDE 0.9% 1000ML 1,000 ML IV ONE (15:52)
--- NOTE | 2019-11-30 15:59 | Emergency Department Note ---
History of Present Illness General Chief complaint: Infection, Wound Stated complaint: LEFT LEG PAINFUL - INFECTION Time Seen by Provider: 11/30/19 15:44 Source: patient History of Present Illness Provider complaint: Left leg pain Onset (ago): day(s) Location: lower extremity Radiation: non-radiation Severity: severe Maximum Pain Intensity: 10 Quality: + sharp Relieved By: + none Associated symptoms: + fever/chills (Chills no fever), + nausea/vomiting and + weakness This is a 49-year-old female who presents with pain to her left leg. She is concerned that she has a worsening infection there. The patient has a history of aorto iliac stents due to peripheral vascular disease. She subsequently ended up a double amputee. She is currently on Plavix. She was admitted to the hospital and discharged about a week ago for infection to that left leg. She was discharged on doxycycline and Omnicef. She saw the wound care clinic approximately 3 days ago and she seemed to be doing well but since yesterday she has noticed worsening pain to the leg with increased redness. She thought she also noticed that there was some increase in the area of necrosis. She states the leg gets warm and cold alternatively. She has had some associated vomiting since yesterday as well as chills. She denies any fevers. She has had no cough or cold symptoms. She denies myalgias. She does feel somewhat lightheaded. She denies any exposure to COVID-19 or any sick contacts or recent travel. Home Medications Home Medications Medication Instructions Recorded Confirmed Type adalimumab 40 mg/0.8 mL 40 mg SQ .ON HOLD 03/20/19 11/30/19 History subcutaneous syringe kit clopidogrel 75 mg tablet 75 mg PO QPM 03/20/19 11/30/19 History duloxetine 60 mg capsule,delayed 60 mg PO DAILY cap 03/20/19 11/30/19 History release folic acid 1 mg tablet 1 mg PO DAILY 03/20/19 11/30/19 History hydroxychloroquine 200 mg tablet 300 mg PO DAILY tab 03/20/19 11/30/19 History methotrexate sodium (PF) 50 mg 50 mg WK 03/20/19 11/30/19 History solution for injection olanzapine 20 mg tablet 20 mg PO HS tab 03/20/19 11/30/19 History prazosin 2 mg capsule 2 mg PO QPM 03/20/19 11/30/19 History sulfasalazine 500 mg tablet 500 mg PO BID tab 03/20/19 11/30/19 History gabapentin 600 mg PO TID 11/15/19 11/30/19 History lisinopril 10 mg PO DAILY 11/15/19 11/30/19 History rosuvastatin 20 mg PO DAILY 11/15/19 11/30/19 History prednisone 5 mg PO DAILY 11/16/19 11/30/19 History Lactobacillus acidoph-L.bulgar 1 tab PO TID #30 tab 11/20/19 11/30/19 Rx [Lactinex] cefdinir 300 mg capsule 300 mg PO BID 9 Days #18 cap 11/27/19 11/30/19 Rx doxycycline hyclate 100 mg capsule 100 mg PO BID 9 Days #18 cap 11/27/19 11/30/19 Rx metformin 500 mg tablet 500 mg PO DAILY 11/27/19 11/30/19 History acetaminophen [Tylenol Extra 1,000 mg PO Q6H PRN 11/30/19 11/30/19 History Strength] Allergies Allergy/AdvReac Type Severity Reaction Status Date / Time onion Allergy Unknown Verified 11/30/19 17:34 Past Med/Surg History Medical History Acquired absence of left leg below knee (Acute) Acquired absence of right leg below knee (Acute) Adjustment disorder with mixed anxiety and depressed mood (Acute) Amput below knee, unilat (Acute) Chronic hyponatremia Chronic pain syndrome (Acute) Depression with anxiety Diabetes mellitus Inflammatory polyarthropathy (Acute) PVD (peripheral vascular disease) (Acute) Rheumatoid arthritis (Acute) Surgical History History of below-knee amputation of both lower extremities Hx of cholecystectomy (Resolved) Family History Other Cancer Coronary heart disease Hypertension Stroke Social History Preferred Language: Macedonian Communication Ability: Effective Visual Impairment: Limited Hearing Ability: Normal Manager Of Community Relations Required: No Beliefs That Will Affect Care: None marital status: Legally Current Living Situation: Alone Current Living Situation Comment: HAS CARE AIDS TO HELP. 59 HOURS PER WEEK (7 DAYS) current occupational status: disabled Feels Safe at Home: Yes Smoking Status: Current every day smoker Tobacco Type: cigarettes ; Cigarettes Per Day: 5 cigarettes a day ; Second Hand Exposure: No ; Hx Alcohol Use: No Hx Substance Use: No during the past year weight has: remained stable Review of Systems See HPI for pertinent positives & negatives. and A total of 10 systems reviewed and were otherwise negative Physical Exam Vital Signs Vital Signs - 24 hr 11/30/19 15:29 11/30/19 16:11 11/30/19 16:12 Temperature 36.5 C Temperature Source Oral Pulse Rate 99 H 106 H Pulse Rate [Left] 103 H Pulse Rate from SpO2 Sensor 106 H Pulse Rhythm [Left] Regular Respiratory Rate 20 28 H 15 Respiratory Effort / Characteristics Non-Labored Spontaneous Non-Labored Respiratory Depth Normal Respiratory Pattern Regular Regular Blood Pressure 96/64 L 105/65 Blood Pressure [Left Arm] 105/65 Blood Pressure Mean 74 84 Blood Pressure Mean [Left Arm] 78 Blood Pressure Position Sitting Pulse Oximetry 95 97 98 Oxygen Delivery Method Room Air Room Air Sepsis Recent Fever Within 48 Hours No Sepsis New/Unexplained Change in Mental Status No Sepsis Action Taken by Nursing No Action Required 11/30/19 17:08 11/30/19 17:31 11/30/19 18:00 Temperature Temperature Source Pulse Rate 94 H 92 H 90 Pulse Rate [Left] Pulse Rate from SpO2 Sensor 93 H 91 H Pulse Rhythm [Left] Respiratory Rate 16 20 17 Respiratory Effort / Characteristics Respiratory Depth Respiratory Pattern Blood Pressure 135/68 120/79 107/53 L Blood Pressure [Left Arm] Blood Pressure Mean 82 94 79 Blood Pressure Mean [Left Arm] Blood Pressure Position Pulse Oximetry 97 98 96 Oxygen Delivery Method Sepsis Recent Fever Within 48 Hours Sepsis New/Unexplained Change in Mental Status Sepsis Action Taken by Nursing 11/30/19 18:30 11/30/19 19:00 Temperature Temperature Source Pulse Rate 88 91 H Pulse Rate [Left] Pulse Rate from SpO2 Sensor 88 92 H Pulse Rhythm [Left] Respiratory Rate 19 15 Respiratory Effort / Characteristics Respiratory Depth Respiratory Pattern Blood Pressure 109/65 98/60 L Blood Pressure [Left Arm] Blood Pressure Mean 74 71 Blood Pressure Mean [Left Arm] Blood Pressure Position Pulse Oximetry 95 97 Oxygen Delivery Method Sepsis Recent Fever Within 48 Hours Sepsis New/Unexplained Change in Mental Status Sepsis Action Taken by Nursing Constitutional: Vital signs reviewed. She is slightly hypertensive. Eyes: Pupils are equal round reactive to light. Conjunctiva are noninjected. ENT: Pharynx is clear without erythema or exudate. Mucous membranes are moist. Neck supple without meningeal signs. Respiratory: Clear to auscultation bilaterally. Breath sounds are equal bilaterally. Cardiovascular: Regular rate and rhythm. No rubs or gallops. GI: Soft, nondistended and nontender. Bowel sounds are present. Musculoskeletal: The patient is a double amputee. The left BKA stump is diffusely erythematous with tenderness. She has necrotic areas on the distal end. No drainage is noted. The erythematous area is cool to touch while the rest of the leg is warm. Integumentary: As above. Neurological: The patient is awake and alert. No focal deficits. Psychiatric: Normal affect. Not anxious appearing. Course Administered Medications Discontinued Medications Sodium Chloride (Nss 1000ml) 1,000 mls @ 999 mls/hr IV .Q1H1M ONE Stop: 11/30/19 16:52 Last Infusion: 11/30/19 17:10 Dose: 0 mls/hr Documented by: [id number] Admin: 11/30/19 16:17 Dose: 999 mls/hr Documented by: [id number] Morphine Sulfate (Morphine Sulfate) 2 mg IV NOW STA Stop: 11/30/19 16:21 Last Admin: 11/30/19 17:03 Dose: 2 mg Documented by: [id number] Ondansetron HCl (Zofran) 4 mg IV NOW STA Stop: 11/30/19 15:53 Last Admin: 11/30/19 16:17 Dose: 4 mg Documented by: [id number] Medical Decision Making Differential Diagnosis Cellulitis, abscess, staph infection, arterial occlusion, sepsis, bacteremia Medical Records Attestation: I reviewed the patient's medical records. The patient was discharged from the hospital a week ago due to infection to the left amputation stump. She was discharged on doxycycline and cefdinir. Home Medications Current Medication List: was personally reviewed by me Laboratory Data Attestation: I reviewed the patient's lab results. Result diagrams: 11/30/19 16:04 11/30/19 16:22 Lab Results 11/30/19 11/30/19 11/30/19 Range/Units 16:04 16:04 16:22 WBC 13.90 H (4.8-10.8) K/uL RBC 4.45 (4.2-5.4) M/uL Hgb 12.3 (12.0-16.0) g/dL Hct 37.8 (37-47) % MCV 84.9 (80-100) fL MCH 27.6 (25-34) pg MCHC 32.5 (32-36) g/dL RDW Std Deviation 42.4 (36.4-46.3) fL RDW Coeff of Maik 13.7 (11.5-14.5) % Plt Count 400 (130-400) K/uL MPV 9.1 (7.4-10.4) fL Immature Gran % (Auto) 0.3 % Neut % (Auto) 58.5 % Lymph % (Auto) 36.0 % [place] % (Auto) 4.4 % Eos % (Auto) 0.6 % Baso % (Auto) 0.2 % Immature Gran # (Auto) 0.04 H (0.00-0.02) K/uL Neut # (Auto) 8.13 H (1.4-6.5) K/uL Lymph # (Auto) 5.00 H (1.2-3.4) K/uL [place] # (Auto) 0.61 H (0.11-0.59) K/uL Eos # (Auto) 0.09 (0-0.5) K/uL Baso # (Auto) 0.03 (0-0.2) K/uL PT 11.5 (9.0-12.0) Seconds INR 1.1 (0.9-1.1) APTT 30.9 (21.0-31.0) Seconds PTT Ratio 1.1 Sodium 137 (136-145) mmol/L Potassium 3.5 (3.5-5.1) mmol/L Chloride 104 (98-107) mmol/L Carbon Dioxide 28 (21-32) mmol/L Anion Gap 5.0 (3-11) BUN 13 (7-18) mg/dl Creatinine 1.02 (0.6-1.2) mg/dl Est Cr Clr Drug Dosing Not Reportable Est GFR ( Amer) 75.3 Est GFR (Non-Af Amer) 65.0 BUN/Creatinine Ratio 13.1 (10-20) Glucose 168 H (70-99) mg/dl Lactate (0.4-2.0) mmol/L Calcium 8.8 (8.5-10.1) mg/dl Magnesium 1.7 L (1.8-2.4) mg/dl Total Bilirubin 0.3 (0.2-1) mg/dl AST 21 (15-37) U/L ALT 21 (12-78) U/L Alkaline Phosphatase 162 H (45-117) U/L Total Protein 7.6 (6.4-8.2) gm/dl Albumin 2.4 L (3.4-5.0) gm/dl Globulin 5.2 H (2.5-4.0) gm/dl Albumin/Globulin Ratio 0.5 L (0.9-2) 11/30/19 Range/Units 16:22 WBC (4.8-10.8) K/uL RBC (4.2-5.4) M/uL Hgb (12.0-16.0) g/dL Hct (37-47) % MCV (80-100) fL MCH (25-34) pg MCHC (32-36) g/dL RDW Std Deviation (36.4-46.3) fL RDW Coeff of Maik (11.5-14.5) % Plt Count (130-400) K/uL MPV (7.4-10.4) fL Immature Gran % (Auto) % Neut % (Auto) % Lymph % (Auto) % [place] % (Auto) % Eos % (Auto) % Baso % (Auto) % Immature Gran # (Auto) (0.00-0.02) K/uL Neut # (Auto) (1.4-6.5) K/uL Lymph # (Auto) (1.2-3.4) K/uL [place] # (Auto) (0.11-0.59) K/uL Eos # (Auto) (0-0.5) K/uL Baso # (Auto) (0-0.2) K/uL PT (9.0-12.0) Seconds INR (0.9-1.1) APTT (21.0-31.0) Seconds PTT Ratio Sodium (136-145) mmol/L Potassium (3.5-5.1) mmol/L Chloride (98-107) mmol/L Carbon Dioxide (21-32) mmol/L Anion Gap (3-11) BUN (7-18) mg/dl Creatinine (0.6-1.2) mg/dl Est Cr Clr Drug Dosing Est GFR ( Amer) Est GFR (Non-Af Amer) BUN/Creatinine Ratio (10-20) Glucose (70-99) mg/dl Lactate 2.6 H* (0.4-2.0) mmol/L Calcium (8.5-10.1) mg/dl Magnesium (1.8-2.4) mg/dl Total Bilirubin (0.2-1) mg/dl AST (15-37) U/L ALT (12-78) U/L Alkaline Phosphatase (45-117) U/L Total Protein (6.4-8.2) gm/dl Albumin (3.4-5.0) gm/dl Globulin (2.5-4.0) gm/dl Albumin/Globulin Ratio (0.9-2) Imaging Data Radiologist's Impression: US arterial duplex LE LT CLINICAL HISTORY: 49 years-old Female presenting with cold necrotic stump, eval for ischemia/arterial occlusion, history of diabetes. TECHNIQUE: Real-time grayscale and color and spectral Doppler ultrasound imaging of the left lower extremity arteries was performed. Measurements calculated based on NASCET criteria. COMPARISON: None. FINDINGS: A left [id number] amputation is noted. LEFT: Common femoral artery: Patent. Monophasic waveforms. Peak systolic velocity (PSV) 105 cm/s. Deep femoral artery: Patent. Monophasic waveforms. PSV 83 cm/s. Superficial femoral artery: Patent. Monophasic waveforms. PSV 33-87 cm/s. Popliteal artery: Patent. Monophasic waveforms. PSV 26 cm/s. IMPRESSION: 1. Left below the knee amputation with patent vasculature. Diffusely monophasic waveforms suggests extensive atherosclerosis without focal hemodynamically significant stenosis. ACT 112: Negative or not required by law. Electronically signed by: Ayden Khalil M.D. 11/30/2019 5:16 PM XR chest 1V portable CLINICAL HISTORY: 49 years-old Female presenting with SEPSIS. TECHNIQUE: Portable upright AP view of the chest was obtained. COMPARISON: None. FINDINGS: Cardiomediastinal silhouette normal. No focal opacity. No large effusion or pneumothorax. Osseous structures normal. Upper abdomen normal. IMPRESSION: 1. No acute cardiopulmonary disease. ACT 112: Negative or not required by law. Electronically signed by: Ayden Khalil M.D. 11/30/2019 4:15 PM Blood Pressure Blood Pressure Findings: Low blood pressure Blood Pressure Disposition: further management by hospitalist MDM Narrative I did evaluate the patient as noted above. IV access was established. The patient was placed on a continuous manager monitoring. I did order and personally review the patient's 12-lead EKG as described above. I did order and personally reviewed the images of the patient's chest x-ray as described above. There is no evidence of pneumonia. I did order and review the patient's blood work as noted in the electronic medical record. Her white blood cell count is elevated at 13.9. Glucose is elevated. Electrolytes are unremarkable other than mild hypomagnesemia. I did order an arterial Doppler of the left lower extremity. I did review the images myself as well as the radiology report as described above. There is no evidence of stenosis or occlusion. I did treat the patient with IV morphine and Zofran for her pain. She was also given a liter normal saline as the patient was initially hypotensive. Her blood pressure did improve. I did discuss the test results with the patient. I did recommend hospitalization for IV antibiotics. I did discuss case with the hospitalist and rn case management. Impression & Plan Infection of below knee amputation stump, Hyperglycemia, Hypomagnesemia, Failure of outpatient treatment Discharge Plan Visit Data Chief Complaint: Infection, Wound Stated Complaint: LEFT LEG PAINFUL - INFECTION ED Provider: Crispin Stubbs Discharge Problem: Infection of below knee amputation stump, Hyperglycemia, Hypomagnesemia, Failure of outpatient treatment Patient Disposition: Being Evaluated by Hospitalist Forms Stand Alone Forms: My [facility] Prescriptions Prescriptions: No Action clopidogrel [Plavix] 75 mg tablet 75 mg PO QPM RF: 0 prazosin 2 mg capsule 2 mg PO QPM RF: 0 sulfasalazine 500 mg tablet 500 mg PO BID RF: 0 duloxetine [Cymbalta] 60 mg capsule,delayed release(DR/EC) 60 mg PO DAILY RF: 0 folic acid 1 mg tablet 1 mg PO DAILY RF: 0 hydroxychloroquine 200 mg tablet 300 mg PO DAILY RF: 0 methotrexate sodium (PF) 50 mg recon soln 50 mg WK RF: 0 Humira 40 mg/0.8 mL syringe kit 40 mg SQ .ON HOLD RF: 0 olanzapine [Zyprexa] 20 mg tablet 20 mg PO HS RF: 0 metformin 500 mg tablet 500 mg PO DAILY RF: 0 cefdinir 300 mg capsule 300 mg PO BID 9 Days Qty: 18 RF: 1 doxycycline hyclate 100 mg capsule 100 mg PO BID 9 Days Qty: 18 RF: 1 rosuvastatin 20 mg tablet 20 mg PO DAILY RF: 0 gabapentin 600 mg tablet 600 mg PO TID RF: 0 lisinopril 10 mg tablet 10 mg PO DAILY RF: 0 prednisone 5 mg tablet 5 mg PO DAILY RF: 0 Lactinex 1 million cell tablet,chewable 1 tab PO TID Qty: 30 RF: 0 acetaminophen [Tylenol Extra Strength] 500 mg Tablet 1,000 mg PO Q6H PRN (Reason: Pain) RF: 0 Referrals Referrals: Thanh Hanna DO [Primary Care Provider] -
--- NOTE | 2019-11-30 16:17 | XRay Report ---
XR chest 1V portable CLINICAL HISTORY: 49 years-old Female presenting with SEPSIS. TECHNIQUE: Portable upright AP view of the chest was obtained. COMPARISON: None. FINDINGS: Cardiomediastinal silhouette normal. No focal opacity. No large effusion or pneumothorax. Osseous str uctures normal. Upper abdomen normal. IMPRESSION: 1. No acute cardiopulmonary disease. ACT 112: Negative or not required by law. Electronically signed by: Ayden Khalil M.D. 11/30/2019 4:15 PM
[2019-11-30] MEDS ORDERED: MoRPHine SULFATE 2 MG/ML CARP IV STA (16:20)
[2019-11-30 16:33] LABS: Hematocrit (blood only) 37.8 % (37-47); Hemoglobin 12.3 g/dL (12.0-16.0); Mean Corpuscular Hemoglobin 27.6 pg (25-34); Mean Corpuscular Hgb Conc 32.5 g/dL (32-36); Mean Corpuscular Volume 84.9 fL (80-100); Mean Platelet Volume 9.1 fL (7.4-10.4); Platelet Count 400 K/uL (130-400); RDW Coefficient of Variation 13.7 % (11.5-14.5); RDW Standard Deviation 42.4 fL (36.4-46.3); Red Blood Count 4.45 M/uL (4.2-5.4)
[2019-11-30 16:45] LABS: INR 1.1 (0.9-1.1); Partial Thromboplastin Ratio 1.1; Partial Thromboplastin Time 30.9 Seconds (21.0-31.0); Prothrombin Time 11.5 Seconds (9.0-12.0)
[2019-11-30 16:48] LABS: Alanine Aminotransferase 21 U/L (12-78); Albumin Level 2.4 gm/dl (3.4-5.0); Aspartate Aminotransferase 21 U/L (15-37); BUN Creatinine Ratio 13.1 (10-20); Blood Urea Nitrogen 13 mg/dl (7-18); Calcium 8.8 mg/dl (8.5-10.1); Carbon Dioxide 28 mmol/L (21-32); Chloride 104 mmol/L (98-107); Est GFR (African American) 75.3; Glucose 168 mg/dl (70-99); Magnesium 1.7 mg/dl (1.8-2.4); Potassium 3.5 mmol/L (3.5-5.1); Sodium 137 mmol/L (136-145)
[2019-11-30 16:51] LABS: Albumin Globulin Ratio 0.5 (0.9-2); Alkaline Phosphatase 162 U/L (45-117); Bilirubin,Total 0.3 mg/dl (0.2-1); Globulin 5.2 gm/dl (2.5-4.0); Total Protein 7.6 gm/dl (6.4-8.2)
[2019-11-30 16:53] LABS: Basophils # (auto) 0.03 K/uL (0-0.2); Basophils % (auto) 0.2 %; Eosinophils # (auto) 0.09 K/uL (0-0.5); Eosinophils % (auto) 0.6 %; Immature Granulocytes # (auto) 0.04 K/uL (0.00-0.02); Immature Granulocytes % (auto) 0.3 %; Monocytes # (auto) 0.61 K/uL (0.11-0.59); Monocytes % (auto) 4.4 %; Neutrophils # (auto) 8.13 K/uL (1.4-6.5); Neutrophils % (auto) 58.5 %
--- NOTE | 2019-11-30 17:17 | Ultrasound Report ---
US arterial duplex LE LT CLINICAL HISTORY: 49 years-old Female presenting with cold necrotic stump, eval for ischemia/arterial occlusion, history of diabetes. TECHNIQUE: Real-time grayscale and color and spectral Doppler ultrasound imaging of the left lower ex tremity arteries was performed. Measurements calculated based on NASCET criteria. COMPARISON: None. FINDINGS: A left [id number]-sho-lkah amputation is noted. LEFT: Common femoral artery: Patent. Monophasic waveforms. Peak systolic velocity (PSV) 105 cm/s. Deep femoral artery: Patent. Monophasic waveforms. PSV 83 cm/s. Superficial femoral artery: Patent. Monophasic waveforms. PSV 33-87 cm/s. Popliteal artery: Patent. Monophasic waveforms. PSV 26 cm/s. IMPRESSION: 1. Left below the knee amputation with patent vasculature. Diffusely monophasic waveforms suggests e xtensive atherosclerosis without focal hemodynamically significant stenosis. ACT 112: Negative or not required by law. Electronically signed by: Ayden Khalil M.D. 11/30/2019 5:16 PM
[2019-11-30] MEDS ORDERED: MoRPHine SULFATE 4 MG/ML 1 ML CARP\\VIAL IV STA ×2 (19:52→22:55)
--- NOTE | 2019-11-30 21:30 | History & Physical Report ---
Date of Service November 30, 2019 Assessment & Plan (1) Infection of below knee amputation stump: 49-year-old female with history of peripheral artery disease, aortic iliac occlusive disease status post bilateral BKA, Rheumatoid arthritis on chronic prednisone, diabetes type 2, hypertension dys lipidemia presenting with increasing pain and swelling of the left BKA stump. POSSIBLE SEPSIS SECONDARY TO LEFT BKA STUMP NONHEALING INFECTED WOUND, CELLULITIS --Was discharged [facility] on doxycycline and cefdinir last November 21, 2019 but patient's wound and cellulitis continue to progress --Patient presents with heart rate of 106, leukocytosis of 13,900, and infected left BKA wound Lactic acid normalized from 2.6-1.7 within 2 hours in the emergency room --Obtain blood and wound cultures CT of the left lower extremity obtained --Start on daptomycin and Zosyn IV IV D5 NSS --Orthopedics consulted for possible BKA N.p.o. post midnight --Infectious disease and wound care also consulted --IV morphine, [place] for pain HISTORY OF PERIPHERAL ARTERY DISEASE, AORTOILIAC OCCLUSION STATUS POST BILATERAL BKA --Continue Plavix, hold rosuvastatin as patient is on daptomycin RHEUMATOID ARTHRITIS --On chronic prednisone 5 mg p.o. daily Currently hemodynamically stable, but if patient becomes hypotensive or orthopedic surgeries planned, provide hydrocortisone IV stress dose --Hold usual sulfasalazine, Plaquenil, methotrexate for now, discussed with pourer buggy ladle regarding resumption of this medications DIABETES TYPE 2 --[place] to be steroid induced --Hold metformin, insulin sliding scale ordered HYPERTENSION --Continue lisinopril HYPOMAGNESEMIA --Replaced with IV magnesium Monitor DVT prophylaxis --Anticoagulation on hold in light of possible orthopedic procedure CODE STATUS --Full code Disposition Patient usually lives at home but will need PT and OT evaluation History of Present Illness 49-year-old female with history of peripheral artery disease, aortoiliac occlusive disease status post bilateral BKA, Rheumatoid arthritis, diabetes, hypertension, presenting with increasing pain and swelling on the left BKA stump. Patient was discharged from [facility] last November 21, 2019 after being treated for left BKA stump cellulitis. She was given vancomycin which was transitioned to doxycycline and cefdinir on discharge. She follows with the wound care center last November 26, 2020 at that time a ssessment was the wound was about the same and plans for vascular surgery referral within 1 week and was being contemplated. Since yesterday patient noted increased redness, pain, tenderness and sero sanguineous discharge on the left BKA stump prompting consult to the ER. At the ER, arterial Doppler of the left lower extremity did not reveal significant stenosis. On exam, the patient seen sitting up in bed, not in distress but uncomfortable secondary to pain left BKA stump. She also reports chills at home, but denies headache, dizziness, chest pain, shortness of breath abdominal pain or any other symptoms. Primary Care Provider: hTanh Hanna DO Allergies Allergy/AdvReac Type Severity Reaction Status Date / Time onion Allergy Unknown Verified 11/30/19 17:34 Home Medications Home Medications Medication Instructions Recorded Confirmed Type adalimumab 40 mg/0.8 mL 40 mg SQ .ON HOLD 03/20/19 11/30/19 History subcutaneous syringe kit clopidogrel 75 mg tablet 75 mg PO QPM 03/20/19 11/30/19 History duloxetine 60 mg capsule,delayed 60 mg PO DAILY cap 03/20/19 11/30/19 History release folic acid 1 mg tablet 1 mg PO DAILY 03/20/19 11/30/19 History hydroxychloroquine 200 mg tablet 300 mg PO DAILY tab 03/20/19 11/30/19 History methotrexate sodium (PF) 50 mg 50 mg WK 03/20/19 11/30/19 History solution for injection olanzapine 20 mg tablet 20 mg PO HS tab 03/20/19 11/30/19 History prazosin 2 mg capsule 2 mg PO QPM 03/20/19 11/30/19 History sulfasalazine 500 mg tablet 500 mg PO BID tab 03/20/19 11/30/19 History gabapentin 600 mg PO TID 11/15/19 11/30/19 History lisinopril 10 mg PO DAILY 11/15/19 11/30/19 History rosuvastatin 20 mg PO DAILY 11/15/19 11/30/19 History prednisone 5 mg PO DAILY 11/16/19 11/30/19 History Lactobacillus acidoph-L.bulgar 1 tab PO TID #30 tab 11/20/19 11/30/19 Rx [Lactinex] cefdinir 300 mg capsule 300 mg PO BID 9 Days #18 cap 11/27/19 11/30/19 Rx doxycycline hyclate 100 mg capsule 100 mg PO BID 9 Days #18 cap 11/27/19 0 Rx metformin 500 mg tablet 500 mg PO DAILY 11/27/19 11/30/19 History acetaminophen [Tylenol Extra 1,000 mg PO Q6H PRN 11/30/19 11/30/19 History Strength] Past Med/Surg History Medical History Acquired absence of left leg below knee (Acute) Acquired absence of right leg below knee (Acute) Adjustment disorder with mixed anxiety and depressed mood (Acute) Amput below knee, unilat (Acute) Chronic hyponatremia Chronic pain syndrome (Acute) Depression with anxiety Diabetes mellitus Inflammatory polyarthropathy (Acute) PVD (peripheral vascular disease) (Acute) Rheumatoid arthritis (Acute) Surgical History History of below-knee amputation of both lower extremities Hx of cholecystectomy (Resolved) Family History Other Cancer Coronary heart disease Hypertension Stroke Social History Preferred Language: Yemeni Communication Ability: Effective Visual Impairment: Limited Hearing Ability: Normal Commodity Specialist Required: No Beliefs That Will Affect Care: None marital status: Legally Current Living Situation: Alone Current Living Situation Comment: HAS CARE AIDS TO HELP. 59 HOURS PER WEEK (7 DAYS) current occupational status: disabled Feels Safe at Home: Yes Safety Concerns: Feels Safe At This Time Smoking Status: Light tobacco smoker Tobacco Type: cigarettes ; Cigarettes Per Day: 5 cigarettes a day ; Second Hand Exposure: No ; Hx Alcohol Use: No Hx Substance Use: No during the past year weight has: remained stable Review of Systems Review of Systems: All systems reviewed & are unremarkable except as noted in HPI & below Physical Exam Physical Exam: General- oriented x 3, not in distress, speaks in sentences with no effort or accessory muscle use Head- atraumatic Eyes- PERRL, EOMI, anicteric ENT- oropharynx clear Neck- supple, no JVD, no adenopathy, no thyromegaly; carotids +2/2, no bruits appreciated Lungs- clear to auscultation bilaterally, no rales/wheezes Heart- normal rate, regular rhythm; no murmur, no gallop, no rub appreciated Abdomen- normal bowel sounds, nondistended, soft, nontender, no masses or hepatosplenomegaly Extremities-positive bilateral BKA Left BKA stump: Compared to images taken last November 22, 2019, positive increased edema, erythema, extension of eschar, and minimal serosanguineous drainage Right BKA stump: Essentially normal Neuro- alert, oriented x 3; CN 2-12 grossly intact; motor 5/5 bilaterally;sensation 100% on all extremities; no other gross focal neurologic deficits Skin- warm & dry Results & Data Results & Data ([facility]) Vital Signs (Past 12 Hours) Vital Signs Temp Pulse Pulse Resp BP BP Pulse Ox 11/30/19 20:58 93 H 16 120/67 97 11/30/19 19:00 91 H 15 98/60 L 97 11/30/19 18:30 88 19 109/65 95 11/30/19 18:00 90 17 107/53 L 96 11/30/19 17:31 92 H 20 120/79 98 11/30/19 17:08 94 H 16 135/68 97 11/30/19 16:12 103 H 15 105/65 98 11/30/19 16:11 106 H 28 H 105/65 97 11/30/19 15:29 36.5 C 99 H 20 96/64 L 95 Laboratory Results Laboratory Results - last 24 hr 11/30/19 11/30/19 11/30/19 16:04 16:04 16:22 WBC 13.90 H RBC 4.45 Hgb 12.3 Hct 37.8 MCV 84.9 MCH 27.6 MCHC 32.5 RDW Std Deviation 42.4 RDW Coeff of Maik 13.7 Plt Count 400 MPV 9.1 Immature Gran % (Auto) 0.3 Neut % (Auto) 58.5 Lymph % (Auto) 36.0 [place] % (Auto) 4.4 Eos % (Auto) 0.6 Baso % (Auto) 0.2 Immature Gran # (Auto) 0.04 H Neut # (Auto) 8.13 H Lymph # (Auto) 5.00 H [place] # (Auto) 0.61 H Eos # (Auto) 0.09 Baso # (Auto) 0.03 PT 11.5 INR 1.1 APTT 30.9 PTT Ratio 1.1 Sodium 137 Potassium 3.5 Chloride 104 Carbon Dioxide 28 Anion Gap 5.0 BUN 13 Creatinine 1.02 Est Cr Clr Drug Dosing Not Reportable Est GFR ( Amer) 75.3 Est GFR (Non-Af Amer) 65.0 BUN/Creatinine Ratio 13.1 Glucose 168 H Lactate Calcium 8.8 Magnesium 1.7 L Total Bilirubin 0.3 AST 21 ALT 21 Alkaline Phosphatase 162 H Total Protein 7.6 Albumin 2.4 L Globulin 5.2 H Albumin/Globulin Ratio 0.5 L 11/30/19 11/30/19 16:22 18:18 WBC RBC Hgb Hct MCV MCH MCHC RDW Std Deviation RDW Coeff of Maik Plt Count MPV Immature Gran % (Auto) Neut % (Auto) Lymph % (Auto) [place] % (Auto) Eos % (Auto) Baso % (Auto) Immature Gran # (Auto) Neut # (Auto) Lymph # (Auto) [place] # (Auto) Eos # (Auto) Baso # (Auto) PT INR APTT PTT Ratio Sodium Potassium Chloride Carbon Dioxide Anion Gap BUN Creatinine Est Cr Clr Drug Dosing Est GFR ( Amer) Est GFR (Non-Af Amer) BUN/Creatinine Ratio Glucose Lactate 2.6 H* 1.7 Calcium Magnesium Total Bilirubin AST ALT Alkaline Phosphatase Total Protein Albumin Globulin Albumin/Globulin Ratio Code Status & VTE Plan VTE Prophylaxis Plan VTE Prophylaxis will be ordered: No
[2019-11-30] MEDS ORDERED: HYDROCODONE/ACETAMOPHEN 5/325MG TAB PO PRN (22:55)
[2019-11-30] MEDS ORDERED: GLUCOSE 10 TABS/TUBE PO PRN (22:55)
[2019-11-30] MEDS ORDERED: GLUCOSE 40% GEL 15 GM TUBE PO PRN (22:55)
[2019-11-30] MEDS ORDERED: ONDANSETRON INJ 2 MG/ML 2 ML VIAL IV PRN (22:55)
[2019-11-30] MEDS ORDERED: ICU PROTOCOL FOR HYPERGLYCEMIA PRN (22:55)
[2019-11-30] MEDS ORDERED: DEXTROSE 50% 50 ML SYRINGE IV PRN (22:55)
[2019-11-30] MEDS ORDERED: CARBOHYDRATES FOR HYPOGLYCEMIA PO PRN (22:55)
[2019-11-30] MEDS ORDERED: GLUCAGON FOR INJ 1 MG VIAL SQ PRN (22:55)
[2019-11-30] MEDS ORDERED: ACETAMINOPHEN 325 MG TAB PO PRN (22:55)
[2019-11-30] MEDS ORDERED: PIPERACILL/TAZOBAC CONSULT ACTIVE PRN (23:25)
[2019-11-30] MEDS ORDERED: DAPTOMYCIN CONSULT ACTIVE PRN (23:25)
[2019-11-30] MEDS ORDERED: PIPERACILLIN/TAZOBACTAM 4.5 GM in DEXTROSE 5% 100 ML IV ONE (23:30)
[2019-11-30] MEDS: MoRPHine SULFATE 4 MG/ML 1 ML CARP\\VIAL IV PRN (23:35)
[2019-12-01] MEDS: LACTOBACILLUS ACIDOPHILUS (FLORANEX) TAB PO SCH ×4 (00:10→21:16)
[2019-12-01] MEDS: OLANZapine 20 MG TABLET PO SCH (00:11)
[2019-12-01] MEDS: PRAZOSIN HCL 1 MG CAP PO SCH ×2 (00:11→21:17)
[2019-12-01] MEDS: GABAPENTIN 600 MG TAB PO SCH ×4 (00:12→21:17)
[2019-12-01] MEDS: CLOPIDOGREL BISULFATE 75 MG TAB PO SCH ×2 (00:12→21:17)
[2019-12-01] MEDS: DAPTOmycin 300 MG in SYRINGE 0 ML IV SCH ×2 (00:13→22:42)
[2019-12-01] MEDS: MAGNESIUM SULFATE / D5W 1 GM/100 ML BAG IV SCH ×2 (00:55→01:41)
[2019-12-01] MEDS: D5NSS + 20MEQ KCL 20 MEQ/1,000 ML BAG IV SCH ×2 (00:56→13:04)
[2019-12-01] MEDS: INSULIN ASPART 100 UNITS/ML 3 ML PEN SC SCH ×4 (00:58→21:34)
--- NOTE | 2019-12-01 05:41 | CT Scan Report ---
CT femur LT wo con CT DOSE: 334.79 mGy.cm HISTORY: Nonhealing wound left stump non healing wound TECHNIQUE: Multiaxial CT images of the left femur and lower leg were performed and reformatted in the sagittal and coronal plane without the use of contrast. A dose lowering technique was utilized adhe ring to the principles of ALARA. COMPARISON: None. FINDINGS: Evidence for a prior below knee amputation. Several small ossific fragments are present pre sumably on a postoperative basis. There are findings of generalized soft tissue edematous change inferior to the knee. No evidence for a true bony destructive process. There is a 2.5 cm complex fluid pocket inferior to the surgical site site extending to the skin surfa ce. This potentially represents a draining collection. There are findings of generalized cellulitis inferior to the left knee and surrounding the amputation site. No specific evidence for osteomyelitis. Femur specifically shows no acute process. There are findings of disuse osteopenia involving the left knee as well as tibia and fibula inferior to the knee. IMPRESSION: 1. Operative changes consistent with a below-knee amputation. 2. Expected postoperative changes to the bony structures with evidence for generalized disuse osteope [place]. 3. Diffuse soft tissue cellulitis inferior to the knee extending to the operative site. 4. 2.5 cm complex collection inferior to the operative site and connecting to the inferior skin surfa ce. This may represent a draining small focal abscess or collection. ACT 112: Negative or not required by law. The above report was generated using voice recognition software. It may contain grammatical, syntax or spelling errors. Electronically signed by: Tray Cuevas M.D. 12/01/2019 5:40 AM
[2019-12-01] MEDS: MoRPHine SULFATE 4 MG/ML 1 ML CARP\\VIAL IV PRN ×2 (06:11→17:00)
[2019-12-01] MEDS: PIPERACILLIN/TAZOBACTAM 3.375 GM in DEXTROSE 5% 100 ML IV SCH ×3 (06:14→21:21)
[2019-12-01 06:43] LABS: Basophils # (auto) 0.02 K/uL (0-0.2); Basophils % (auto) 0.3 %; Eosinophils # (auto) 0.04 K/uL (0-0.5); Eosinophils % (auto) 0.6 %; Hemoglobin 11.4 g/dL (12.0-16.0); Immature Granulocytes # (auto) 0.02 K/uL (0.00-0.02); Immature Granulocytes % (auto) 0.3 %; Lymphocytes % (auto) 44.8 %; Mean Corpuscular Hemoglobin 27.6 pg (25-34); Mean Corpuscular Hgb Conc 31.7 g/dL (32-36); Mean Corpuscular Volume 87.2 fL (80-100); Mean Platelet Volume 9.1 fL (7.4-10.4); Monocytes # (auto) 0.24 K/uL (0.11-0.59); Monocytes % (auto) 3.6 %; Neutrophils # (auto) 3.37 K/uL (1.4-6.5); Neutrophils % (auto) 50.4 %; Platelet Count 304 K/uL (130-400); RDW Coefficient of Variation 13.8 % (11.5-14.5); RDW Standard Deviation 43.9 fL (36.4-46.3); Red Blood Count 4.13 M/uL (4.2-5.4); White Blood Count 6.69 K/uL (4.8-10.8)
[2019-12-01 07:15] LABS: BUN Creatinine Ratio 14.5 (10-20); Calcium 8.2 mg/dl (8.5-10.1); Creatinine Clr Calc Pharmacy 70.8 ml/min; Est GFR (Non-African American) 87.2; Magnesium 2.6 mg/dl (1.8-2.4); Potassium 3.4 mmol/L (3.5-5.1)
[2019-12-01] MEDS: predniSONE 5 MG TAB PO SCH (08:33)
[2019-12-01] MEDS: DULOXETINE HCL 60 MG CAP PO SCH (08:33)
[2019-12-01] MEDS: FOLIC ACID 1 MG TAB PO SCH (08:33)
[2019-12-01] MEDS: DOCUSATE SODIUM/SENNA 50/8.6MG TAB PO SCH (08:33)
[2019-12-01] MEDS ORDERED: POTASSIUM CHLORIDE 20 MEQ TABCR PO ONE (10:15)
--- NOTE | 2019-12-01 12:08 | Orthopedic Consultation ---
Date of Consultation December 01, 2019 Assessment & Plan (1) Infection of below knee amputation stump: Continue wound care at this time. The patient had an arterial study performed yesterday and will consult vascular surgery for their opinion on flow to the lower extremity stump. I discussed a few surgical options with the patient. We discussed I & D of the LLE stump vs. possible revision of the LLE BKA vs. AKA. Will discuss the findings with Dr. Morton for surgical tx. Will await vascular input for decision making of the surgical tx. (2) Cellulitis of left leg: (3) PVD (peripheral vascular disease): (4) Necrosis of amputation stump of left lower extremity: History of Present Illness Reason for Consultation: left BKA stump infection and pain Attending Physician: Dutch Olsen MD History of Present Illness This is a patient with type 2 DM and PVD who has had previous bilateral BKA's done in [place], [place]. The LLE BKA was performed ~3 years ago and she states she had another procedure on it nearly 1 year ago. She states she normally ambulates with bilateral LE prosthesis. Recently, she was admitted for wounds to the LLE. They were treated conservatively but they continued to worsen. She was readmitted and we were consulted for evaluation for surgical intervention. Allergies Allergy/AdvReac Type Severity Reaction Status Date / Time onion Allergy Unknown Verified 11/30/19 17:34 Home Medications Home Medications Medication Instructions Recorded Confirmed Type adalimumab 40 mg/0.8 mL 40 mg SQ .ON HOLD 03/20/19 11/30/19 History subcutaneous syringe kit clopidogrel 75 mg tablet 75 mg PO QPM 03/20/19 11/30/19 History duloxetine 60 mg capsule,delayed 60 mg PO DAILY cap 03/20/19 11/30/19 History release folic acid 1 mg tablet 1 mg PO DAILY 03/20/19 11/30/19 History hydroxychloroquine 200 mg tablet 300 mg PO DAILY tab 03/20/19 11/30/19 History methotrexate sodium (PF) 50 mg 50 mg WK 03/20/19 11/30/19 History solution for injection olanzapine 20 mg tablet 20 mg PO HS tab 03/20/19 11/30/19 History prazosin 2 mg capsule 2 mg PO QPM 03/20/19 11/30/19 History sulfasalazine 500 mg tablet 500 mg PO BID tab 03/20/19 11/30/19 History gabapentin 600 mg PO TID 11/15/19 11/30/19 History lisinopril 10 mg PO DAILY 11/15/19 11/30/19 History rosuvastatin 20 mg PO DAILY 11/15/19 11/30/19 History prednisone 5 mg PO DAILY 11/16/19 11/30/19 History Lactobacillus acidoph-L.bulgar 1 tab PO TID #30 tab 11/20/19 11/30/19 Rx [Lactinex] cefdinir 300 mg capsule 300 mg PO BID 9 Days #18 cap 11/27/19 11/30/19 Rx doxycycline hyclate 100 mg capsule 100 mg PO BID 9 Days #18 cap 11/27/19 11/30/19 Rx metformin 500 mg tablet 500 mg PO DAILY 11/27/19 11/30/19 History acetaminophen [Tylenol Extra 1,000 mg PO Q6H PRN 11/30/19 11/30/19 History Strength] Patient History Medical History Acquired absence of left leg below knee (Acute) Acquired absence of right leg below knee (Acute) Adjustment disorder with mixed anxiety and depressed mood (Acute) Amput below knee, unilat (Acute) Chronic hyponatremia Chronic pain syndrome (Acute) Depression with anxiety Diabetes mellitus Inflammatory polyarthropathy (Acute) PVD (peripheral vascular disease) (Acute) Rheumatoid arthritis (Acute) Surgical History History of below-knee amputation of both lower extremities Hx of cholecystectomy (Resolved) Family History Other Cancer Coronary heart disease Hypertension Stroke Social History Preferred Language: Lithuanian Communication Ability: Effective Visual Impairment: Limited Hearing Ability: Normal Final Inspector Required: No Beliefs That Will Affect Care: None marital status: Single Current Living Situation: Alone Current Living Situation Comment: HAS CARE AIDS TO HELP. 59 HOURS PER WEEK (7 DAYS) current occupational status: disabled Feels Safe at Home: Yes Safety Concerns: Feels Safe At This Time Smoking Status: Light tobacco smoker Tobacco Type: cigarettes ; Cigarettes Per Day: 5 cigarettes a day ; Second Hand Exposure: No ; Hx Alcohol Use: No Hx Substance Use: No during the past year weight has: remained stable Physical Exam Constitutional: WD/WN, vitals as above + obese Cardiovascular: Extremities: + edema (Moderate LLE edema of BKA to about the level of the knee.) Musculoskeletal: Knee: + deformity (Bilateral BKA's. Left BKA with large ulceration distal with eschars.) and + skin erythema (mild Left BKA stump erythema) Skin: + ulcer (left BKA stump ulceration with areas of necrosis distal and posterior. ) Neurologic: normal touch/pain/proprioception Psychiatric: A+Ox3, euthymic affect Speech: normal rate/rhythm/volume of speech Lymphatic: no cervical or axillary lymphadenopathy Results & Data ([facility]) Vital Signs (Past 12 Hours) Vital Signs Temp Pulse Pulse Resp BP Pulse Ox 12/01/19 11:27 36.5 C 64 18 105/71 92 12/01/19 07:44 36.3 C L 86 18 114/75 98 12/01/19 07:30 73 12/01/19 03:47 36.3 C L 82 16 107/71 96 Diagnostic Findings Left femur CT CT femur LT wo con CT DOSE: 334.79 mGy.cm HISTORY: Nonhealing wound left stump non healing wound TECHNIQUE: Multiaxial CT images of the left femur and lower leg were performed and reformatted in the sagittal and coronal plane without the use of contrast. A dose lowering technique was utilized adhering to the principles of ALARA. COMPARISON: None. FINDINGS: Evidence for a prior below knee amputation. Several small ossific fragments are present presumably on a postoperative basis. There are findings of generalized soft tissue edematous change inferior to the knee. No evidence for a true bony destructive process. There is a 2.5 cm complex fluid pocket inferior to the surgical site site extending to the skin surface. This potentially represents a draining collection. There are findings of generalized cellulitis inferior to the left knee and surrounding the amputation site. No specific evidence for osteomyelitis. Femur specifically shows no acute process. There are findings of disuse osteopenia involving the left knee as well as tibia and fibula inferior to the knee. IMPRESSION: 1. Operative changes consistent with a below-knee amputation. 2. Expected postoperative changes to the bony structures with evidence for generalized disuse osteopenia. 3. Diffuse soft tissue cellulitis inferior to the knee extending to the operativ e site. 4. 2.5 cm complex collection inferior to the operative site and connecting to the inferior skin surface. This may represent a draining small focal abscess or collection. LLE Arterial Study CLINICAL HISTORY: 49 years-old Female presenting with cold necrotic stump, eval for ischemia/arterial occlusion, history of diabetes. TECHNIQUE: Real-time grayscale and color and spectral Doppler ultrasound imaging of the left lower extremity arteries was performed. Measurements calculated based on NASCET criteria. COMPARISON: None. FINDINGS: A left [id number] amputation is noted. LEFT: Common femoral artery: Patent. Monophasic waveforms. Peak systolic velocity (PSV) 105 cm/s. Deep femoral artery: Patent. Monophasic waveforms. PSV 83 cm/s. Superficial femoral artery: Patent. Monophasic waveforms. PSV 33-87 cm/s. Popliteal artery: Patent. Monophasic waveforms. PSV 26 cm/s. IMPRESSION: 1. Left below the knee amputation with patent vasculature. Diffusely monophasic waveforms suggests extensive atherosclerosis without focal hemodynamically significant stenosis
[2019-12-01] MEDS ORDERED: Nursing to Pharmacy Communication ONE (16:55)
--- NOTE | 2019-12-01 20:29 | Communication Note ---
Date of Service: December 01, 2019 seen at bedside, comfortable, speaking with family over the phone feels off- things seem to be moving slowly, with echoes denies headache, chest pain, nausea, dyspnea likely from Morphine, [place]--> discontinued, changed to Tylenol q6h and PRN Tramadol monitor Marcus Stratton MD
--- NOTE | 2019-12-01 20:31 | Communication Note ---
Date of Service: December 01, 2019 HOLD Zyprexa, to avoid altered mental status in light for patient's symptoms today, re-evaluate patient in AM Marcus Stratton MD
[2019-12-01] MEDS: ACETAMINOPHEN 325 MG TAB PO SCH (21:17)
--- NOTE | 2019-12-01 23:02 | Hospitalist Progress Note ---
Date of Service December 01, 2019 Assessment & Plan (1) Infection of below knee amputation stump: 49-year-old female with history of peripheral artery disease, aortic iliac occlusive disease status post bilateral BKA, Rheumatoid arthritis on chronic prednisone, diabetes type 2, hypertension dys lipidemia presenting with increasing pain and swelling of the left BKA stump. POSSIBLE SEPSIS SECONDARY TO LEFT BKA STUMP NONHEALING INFECTED WOUND, CELLULITIS --Was discharged [facility] on doxycycline and cefdinir last November 21, 2019 but patient's wound and cellulitis continue to progress --Patient presents with heart rate of 106, leukocytosis of 13,900, and infected left BKA wound Lactic acid normalized from 2.6-1.7 within 2 hours in the emergency room --Obtain blood and wound cultures CT of the left lower extremity obtained - significant for 2.5 cm complex fluid collection inferior to the oper. site/ may be abscess --Started on daptomycin and Zosyn IV, will cont. IV D5 NSS --Orthopedics consulted for possible BKA -- need to discuss plan for surgery w/ vascular surgeon --Infectious disease and wound care also consulted --IV morphine, [place] for pain HISTORY OF PERIPHERAL ARTERY DISEASE, AORTOILIAC OCCLUSION STATUS POST BILATERAL BKA --Continue Plavix, hold rosuvastatin as patient is on daptomycin RHEUMATOID ARTHRITIS --On chronic prednisone 5 mg p.o. daily Currently hemodynamically stable, but if patient becomes hypotensive or orthopedic surgeries planned, provide hydrocortisone IV stress dose --Hold usual sulfasalazine, Plaquenil, methotrexate for now, discussed with conduit mechanic regarding resumption of this medications DIABETES TYPE 2 --[place] to be steroid induced --Hold metformin, insulin sliding scale ordered HYPERTENSION --Continue lisinopril HYPOMAGNESEMIA --Replace and Monitor DVT prophylaxis --Anticoagulation on hold in light of possible orthopedic procedure CODE STATUS --Full code Disposition Patient usually lives at home but will need PT and OT evaluation Admission and Anticipated Discharge Date Admission Date: November 30, 2019 Subjective Pt is lying in bed, in NAD. Appears tired. Reports L stump pain. L stump is currently warm, earlier this AM reported by nursing staff that L stump was cool. Pt says it gets like that, sometimes quite cool, and sometimes warm. Ortho service present at the bedside, discussed that vascular eval needed for surgery planning. Pt reports she has been having chills, otherwise denies any chest pain, shortness of breath, abd. pain, nausea or vomiting. Review of Systems Review of Systems: All systems reviewed & are unremarkable except as noted in HPI & below Constitutional: + chills; no fever Respiratory: no cough and no dyspnea Cardiovascular: no chest pain and no palpitations Gastrointestinal: no abdominal pain, no nausea and no vomiting Musculoskeletal: L stump pain Physical Exam Physical Exam: General- alert oriented middle aged female, not in acute distress Head- NC/AT Eyes- PERRL, EOMI, anicteric ENT- oropharynx clear Neck- supple, no JVD, no adenopathy Lungs- normal respiratory effort, clear to auscultation bilaterally, no rales/wheezes Heart- normal rate, regular rhythm; no murmur, no gallop, no rub appreciated Abdomen- normal bowel sounds, nondistended, soft, nontender Extremities-positive bilateral BKA Left BKA stump: Compared to images taken last November 22, 2019, positive increased edema, erythema, extension of eschar, and minimal serosanguineous drainage Right BKA stump: Essentially normal Neuro- alert, oriented x 3; speech fluent and answers questions appropriately, moves all extremities spontaneously, no sensory loss noted Skin- warm & dry Results & Data Results & Data ([facility]) Vital Signs (Past 12 Hours) Vital Signs Temp Pulse Pulse Pulse Resp BP Pulse Ox 12/01/19 19:44 36.4 C L 75 20 129/84 98 12/01/19 15:56 36.3 C L 69 18 106/64 96 12/01/19 15:01 67 12/01/19 11:27 36.5 C 64 18 105/71 92 Laboratory Results 12/01/19 12/01/19 12/01/19 Range/Units 20:21 16:40 13:01 WBC (4.8-10.8) K/uL RBC (4.2-5.4) M/uL Hgb (12.0-16.0) g/dL Hct (37-47) % MCV (80-100) fL MCH (25-34) pg MCHC (32-36) g/dL RDW Std Deviation (36.4-46.3) fL RDW Coeff of Maik (11.5-14.5) % Plt Count (130-400) K/uL MPV (7.4-10.4) fL Immature Gran % (Auto) % Neut % (Auto) % Lymph % (Auto) % [place] % (Auto) % Eos % (Auto) % Baso % (Auto) % Immature Gran # (Auto) (0.00-0.02) K/uL Neut # (Auto) (1.4-6.5) K/uL Lymph # (Auto) (1.2-3.4) K/uL [place] # (Auto) (0.11-0.59) K/uL Eos # (Auto) (0-0.5) K/uL Baso # (Auto) (0-0.2) K/uL Sodium (136-145) mmol/L Potassium (3.5-5.1) mmol/L Chloride (98-107) mmol/L Carbon Dioxide (21-32) mmol/L Anion Gap (3-11) BUN (7-18) mg/dl Creatinine (0.6-1.2) mg/dl Est Cr Clr Drug Dosing ml/min Est GFR ( Amer) Est GFR (Non-Af Amer) BUN/Creatinine Ratio (10-20) Glucose (70-99) mg/dl POC Glucose 122 H 182 H 191 H (70-99) mg/dl Calcium (8.5-10.1) mg/dl Magnesium (1.8-2.4) mg/dl Nasal Screen MRSA (PCR) (Negative) 12/01/19 12/01/19 12/01/19 Range/Units 11:01 07:28 06:32 WBC (4.8-10.8) K/uL RBC (4.2-5.4) M/uL Hgb (12.0-16.0) g/dL Hct (37-47) % MCV (80-100) fL MCH (25-34) pg MCHC (32-36) g/dL RDW Std Deviation (36.4-46.3) fL RDW Coeff of Maik (11.5-14.5) % Plt Count (130-400) K/uL MPV (7.4-10.4) fL Immature Gran % (Auto) % Neut % (Auto) % Lymph % (Auto) % [place] % (Auto) % Eos % (Auto) % Baso % (Auto) % Immature Gran # (Auto) (0.00-0.02) K/uL Neut # (Auto) (1.4-6.5) K/uL Lymph # (Auto) (1.2-3.4) K/uL [place] # (Auto) (0.11-0.59) K/uL Eos # (Auto) (0-0.5) K/uL Baso # (Auto) (0-0.2) K/uL Sodium (136-145) mmol/L Potassium (3.5-5.1) mmol/L Chloride (98-107) mmol/L Carbon Dioxide (21-32) mmol/L Anion Gap (3-11) BUN (7-18) mg/dl Creatinine (0.6-1.2) mg/dl Est Cr Clr Drug Dosing ml/min Est GFR ( Amer) Est GFR (Non-Af Amer) BUN/Creatinine Ratio (10-20) Glucose (70-99) mg/dl POC Glucose 162 H 199 H 195 H (70-99) mg/dl Calcium (8.5-10.1) mg/dl Magnesium (1.8-2.4) mg/dl Nasal Screen MRSA (PCR) (Negative) 12/01/19 12/01/19 12/01/19 Range/Units 06:14 06:14 00:16 WBC 6.69 (4.8-10.8) K/uL RBC 4.13 L (4.2-5.4) M/uL Hgb 11.4 L (12.0-16.0) g/dL Hct 36.0 L (37-47) % MCV 87.2 (80-100) fL MCH 27.6 (25-34) pg MCHC 31.7 L (32-36) g/dL RDW Std Deviation 43.9 (36.4-46.3) fL RDW Coeff of Maik 13.8 (11.5-14.5) % Plt Count 304 (130-400) K/uL MPV 9.1 (7.4-10.4) fL Immature Gran % (Auto) 0.3 % Neut % (Auto) 50.4 % Lymph % (Auto) 44.8 % [place] % (Auto) 3.6 % Eos % (Auto) 0.6 % Baso % (Auto) 0.3 % Immature Gran # (Auto) 0.02 (0.00-0.02) K/uL Neut # (Auto) 3.37 (1.4-6.5) K/uL Lymph # (Auto) 3.00 (1.2-3.4) K/uL [place] # (Auto) 0.24 (0.11-0.59) K/uL Eos # (Auto) 0.04 (0-0.5) K/uL Baso # (Auto) 0.02 (0-0.2) K/uL Sodium 137 (136-145) mmol/L Potassium 3.4 L (3.5-5.1) mmol/L Chloride 108 H (98-107) mmol/L Carbon Dioxide 22 (21-32) mmol/L Anion Gap 7.0 (3-11) BUN 12 (7-18) mg/dl Creatinine 0.80 (0.6-1.2) mg/dl Est Cr Clr Drug Dosing 70.8 ml/min Est GFR ( Amer) 101.0 Est GFR (Non-Af Amer) 87.2 BUN/Creatinine Ratio 14.5 (10-20) Glucose 197 H (70-99) mg/dl POC Glucose 125 H (70-99) mg/dl Calcium 8.2 L (8.5-10.1) mg/dl Magnesium 2.6 H (1.8-2.4) mg/dl Nasal Screen MRSA (PCR) (Negative) 12/01/19 Range/Units 00:00 WBC (4.8-10.8) K/uL RBC (4.2-5.4) M/uL Hgb (12.0-16.0) g/dL Hct (37-47) % MCV (80-100) fL MCH (25-34) pg MCHC (32-36) g/dL RDW Std Deviation (36.4-46.3) fL RDW Coeff of Maik (11.5-14.5) % Plt Count (130-400) K/uL MPV (7.4-10.4) fL Immature Gran % (Auto) % Neut % (Auto) % Lymph % (Auto) % [place] % (Auto) % Eos % (Auto) % Baso % (Auto) % Immature Gran # (Auto) (0.00-0.02) K/uL Neut # (Auto) (1.4-6.5) K/uL Lymph # (Auto) (1.2-3.4) K/uL [place] # (Auto) (0.11-0.59) K/uL Eos # (Auto) (0-0.5) K/uL Baso # (Auto) (0-0.2) K/uL Sodium (136-145) mmol/L Potassium (3.5-5.1) mmol/L Chloride (98-107) mmol/L Carbon Dioxide (21-32) mmol/L Anion Gap (3-11) BUN (7-18) mg/dl Creatinine (0.6-1.2) mg/dl Est Cr Clr Drug Dosing ml/min Est GFR ( Amer) Est GFR (Non-Af Amer) BUN/Creatinine Ratio (10-20) Glucose (70-99) mg/dl POC Glucose (70-99) mg/dl Calcium (8.5-10.1) mg/dl Magnesium (1.8-2.4) mg/dl Nasal Screen MRSA (PCR) Negative (Negative) Medications Administered Current Inpatient Medications Acetaminophen (Tylenol) 650 mg PO Q4H PRN PRN Reason: Pain or Fever Stop: 12/30/19 22:54 Acetaminophen (Tylenol) 650 mg PO Q6H [facility] Stop: 12/31/19 20:59 Last Admin: 12/01/19 21:17 Dose: 650 mg Documented by: Clopidogrel Bisulfate (Plavix) 75 mg PO QPM [facility] Stop: 12/30/19 22:54 Last Admin: 12/01/19 21:17 Dose: 75 mg Documented by: Dextrose (Dextrose 50%) 25 - 50 ml IV UD PRN; Protocol PRN Reason: Hypoglycemia Protocol Stop: 12/30/19 22:54 Duloxetine HCl (Cymbalta) 60 mg PO DAILY [facility] Stop: 12/31/19 08:59 Last Admin: 12/01/19 08:33 Dose: 60 mg Documented by: Folic Acid (Folvite) 1 mg PO DAILY [facility] Stop: 12/31/19 08:59 Last Admin: 12/01/19 08:33 Dose: 1 mg Documented by: Gabapentin (Neurontin) 600 mg PO TID [facility] Stop: 12/30/19 22:54 Last Admin: 12/01/19 21:17 Dose: 600 mg Documented by: Glucagon (Glucagen) 1 mg SQ UD PRN; Protocol PRN Reason: Hypoglycemia Protocol Stop: 12/30/19 22:54 Glucose (Dex4 Glucose) 4 - 8 tabs PO UD PRN; Protocol PRN Reason: Hypoglycemia Protocol Stop: 12/30/19 22:54 Glucose (Glucose 40%) 15 - 30 gm PO UD PRN; Protocol PRN Reason: Hypoglycemia Protocol Stop: 12/30/19 22:54 Potassium Chloride/Dextrose/Sod Cl (D5nss + 20meq Kcl) 20 meq in 1,000 mls @ 75 mls/hr IV .[id number] [facility] Stop: 12/31/19 00:00 Last Admin: 12/01/19 13:04 Dose: 75 mls/hr Documented by: Daptomycin 300 mg/ Syringe 6 mls @ 3 mls/min IV Q24H [facility]; Protocol Stop: 12/07/19 23:29 Last Admin: 12/01/19 22:42 Dose: 3 mls/min Documented by: Piperacillin Sod/Tazobactam (Sod 3.375 gm/ Dextrose) 115 mls @ 28.75 mls/hr IV Q8H [facility]; Protocol Stop: 12/08/19 05:59 Last Admin: 12/01/19 21:21 Dose: 28.8 mls/hr Documented by: Insulin Aspart (Novolog Flexpen) 0 units SC ACHS [facility] Stop: 12/31/19 00:00 Last Admin: 12/01/19 21:34 Dose: Not Given Documented by: Lactobacillus Acidophilus (Floranex) 4 tab PO TID [facility] Stop: 12/30/19 23:29 Last Admin: 12/01/19 21:16 Dose: 4 tab Documented by: Miscellaneous (Order Awaiting Action) 1 ea N/A QS [facility] Stop: 12/31/19 15:59 Last Admin: 12/01/19 16:10 Dose: Not Given Documented by: Miscellaneous (Carbohydrates For Hypoglycemia) 15 - 30 gm PO UD PRN PRN Reason: Hypoglycemia Protocol Stop: 12/30/19 22:54 Miscellaneous Information (Consult) 1 ea N/A UD PRN PRN Reason: Consult Stop: 12/30/19 23:24 Miscellaneous Information (Consult) 1 ea N/A UD PRN PRN Reason: Consult Stop: 12/30/19 23:24 Olanzapine (Zyprexa) 20 mg PO HS [facility] Stop: 12/30/19 22:54 Last Admin: 12/01/19 00:11 Dose: 20 mg Documented by: Ondansetron HCl (Zofran) 4 mg IV Q6H PRN PRN Reason: Nausea Stop: 12/30/19 22:54 Prazosin HCl (Prazosin Hcl) 2 mg PO QPM [facility] Stop: 12/30/19 22:54 Last Admin: 12/01/19 21:17 Dose: 2 mg Documented by: Prednisone (Prednisone) 5 mg PO DAILY [facility] Stop: 12/31/19 08:59 Last Admin: 12/01/19 08:33 Dose: 5 mg Documented by: Senna/Docusate Sodium (Senokot S) 1 tab PO QAM [facility] Stop: 12/31/19 08:59 Last Admin: 12/01/19 08:33 Dose: 1 tab Documented by: Tramadol HCl (Ultram) 50 mg PO Q6H PRN PRN Reason: moderate to severe pain Stop: 12/31/19 19:14
[2019-12-02] MEDS: D5NSS + 20MEQ KCL 20 MEQ/1,000 ML BAG IV SCH ×2 (01:15→15:54)
[2019-12-02] MEDS: ACETAMINOPHEN 325 MG TAB PO SCH ×4 (02:28→21:42)
[2019-12-02] MEDS: TRAMADOL HCL 50 MG TABLET PO PRN ×2 (02:30→13:31)
[2019-12-02] MEDS ORDERED: KETOROLAC TROMETHAMINE 15 MG/ML VIAL IV ONE (04:15)
[2019-12-02] MEDS: PIPERACILLIN/TAZOBACTAM 3.375 GM in DEXTROSE 5% 100 ML IV SCH ×3 (05:19→21:44)
[2019-12-02 06:09] LABS: Basophils # (auto) 0.03 K/uL (0-0.2); Basophils % (auto) 0.3 %; Hematocrit (blood only) 32.6 % (37-47); Hemoglobin 10.1 g/dL (12.0-16.0); Immature Granulocytes # (auto) 0.02 K/uL (0.00-0.02); Immature Granulocytes % (auto) 0.2 %; Lymphocytes # (auto) 4.36 K/uL (1.2-3.4); Lymphocytes % (auto) 44.9 %; Mean Corpuscular Hemoglobin 27.3 pg (25-34); Mean Corpuscular Volume 88.1 fL (80-100); Mean Platelet Volume 9.1 fL (7.4-10.4); Monocytes # (auto) 0.35 K/uL (0.11-0.59); Monocytes % (auto) 3.6 %; Neutrophils # (auto) 4.84 K/uL (1.4-6.5); Platelet Count 306 K/uL (130-400); RDW Coefficient of Variation 13.8 % (11.5-14.5); RDW Standard Deviation 44.5 fL (36.4-46.3)
[2019-12-02 06:48] LABS: Calcium 8.2 mg/dl (8.5-10.1); Creatinine Clr Calc Pharmacy 80.4 ml/min; Est GFR (African American) 114.8; Magnesium 2.1 mg/dl (1.8-2.4); Potassium 4.4 mmol/L (3.5-5.1)
--- NOTE | 2019-12-02 07:10 | Hospitalist Progress Note ---
Date of Service December 02, 2019 Assessment & Plan (1) Infection of below knee amputation stump: 49-year-old female with history of peripheral artery disease, aortic iliac occlusive disease status post bilateral BKA, Rheumatoid arthritis on chronic prednisone, diabetes type 2, hypertension dys lipidemia presenting with increasing pain and swelling of the left BKA stump. POSSIBLE SEPSIS SECONDARY TO LEFT BKA STUMP NONHEALING INFECTED WOUND, CELLULITIS --Was discharged from [facility] on doxycycline and cefdinir last November 21, 2019 but patient's wound and cellulitis continue to progress --Patient presents with heart rate of 106, leukocytosis of 13,900, and infected left BKA wound Lactic acid normalized from 2.6-1.7 within 2 hours in the emergency room --Obtain blood and wound cultures CT of the left lower extremity obtained - significant for 2.5 cm complex fluid collection inferior to the oper. site/ may be abscess --Started on daptomycin and Zosyn IV, will cont. IV D5 NSS --Orthopedics consulted for possible BKA -- need to discuss plan for surgery w/ vascular surgeon -- vasculary surgery consulted - CT abd/pelvis angio ordered, given results, plan for B/l iliac stenting (12/02 AM) --Infectious disease and wound care also consulted --IV morphine, [place] for pain HISTORY OF PERIPHERAL ARTERY DISEASE, AORTOILIAC OCCLUSION STATUS POST BILATERAL BKA --Continue Plavix, hold rosuvastatin as patient is on daptomycin RHEUMATOID ARTHRITIS --On chronic prednisone 5 mg p.o. daily Currently hemodynamically stable, but if patient becomes hypotensive or orthopedic surgeries planned, provide hydrocortisone IV stress dose --Hold usual sulfasalazine, Plaquenil, methotrexate for now, discussed with gauntlet pairer regarding resumption of this medications DIABETES TYPE 2 --[place] to be steroid induced --Hold metformin, insulin sliding scale ordered HYPERTENSION - BP on lower side -- hold lisinopril HYPOMAGNESEMIA --Replace and Monitor DVT prophylaxis --Anticoagulation on hold in light of possible orthopedic procedure CODE STATUS --Full code Disposition Patient usually lives at home but will need PT and OT evaluation Admission and Anticipated Discharge Date Admission Date: November 30, 2019 Subjective Pt is sitting up in bed, in NAD. Says L stump feels better, and not as painful. Denies chest pain, shortness of breath, abd. pain, nausea, vomiting, lightheadedness, dizziness. Seen by vascular surgery this AM, CT abdomen/pelvis angio ordered, given results, plan for B/l iliac stenting tmrw AM. Review of Systems Review of Systems: All systems reviewed & are unremarkable except as noted in HPI & below Constitutional: + chills; no fever Respiratory: no cough and no dyspnea Cardiovascular: no chest pain and no palpitations Gastrointestinal: no abdominal pain, no nausea and no vomiting Musculoskeletal: L stump pain (improved) Physical Exam Physical Exam: General- alert and oriented middle aged female, not in acute distress Head- NC/AT Eyes- PERRL, EOMI, anicteric ENT- oropharynx clear Neck- supple, no JVD, no adenopathy Lungs- normal respiratory effort, clear to auscultation bilaterally, no rales/wheezes Heart- normal rate, regular rhythm; no murmur, no gallop, no rub appreciated Abdomen- normal bowel sounds, nondistended, soft, nontender Extremities-positive bilateral BKA Left BKA stump: Compared to images taken last November 22, 2019, positive increased edema, erythema, extension of eschar, and minimal serosanguineous drainage Right BKA stump: Essentially normal Neuro- alert, oriented x 3; speech fluent and answers questions appropriately, moves all extremities spontaneously, no sensory loss noted Skin- warm & dry Results & Data Results & Data ([facility]) Vital Signs (Past 12 Hours) Vital Signs Temp Pulse Pulse Resp BP Pulse Ox 12/02/19 04:22 36.7 C 73 18 104/67 93 12/01/19 23:58 75 12/01/19 23:07 36.3 C L 78 20 95/61 L 92 12/01/19 19:44 36.4 C L 75 20 129/84 98 Laboratory Results 12/02/19 12/02/19 12/01/19 Range/Units 05:54 05:54 20:21 WBC 9.70 (4.8-10.8) K/uL RBC 3.70 L (4.2-5.4) M/uL Hgb 10.1 L (12.0-16.0) g/dL Hct 32.6 L (37-47) % MCV 88.1 (80-100) fL MCH 27.3 (25-34) pg MCHC 31.0 L (32-36) g/dL RDW Std Deviation 44.5 (36.4-46.3) fL RDW Coeff of Maik 13.8 (11.5-14.5) % Plt Count 306 (130-400) K/uL MPV 9.1 (7.4-10.4) fL Immature Gran % (Auto) 0.2 % Neut % (Auto) 50.0 % Lymph % (Auto) 44.9 % [place] % (Auto) 3.6 % Eos % (Auto) 1.0 % Baso % (Auto) 0.3 % Immature Gran # (Auto) 0.02 (0.00-0.02) K/uL Neut # (Auto) 4.84 (1.4-6.5) K/uL Lymph # (Auto) 4.36 H (1.2-3.4) K/uL [place] # (Auto) 0.35 (0.11-0.59) K/uL Eos # (Auto) 0.10 (0-0.5) K/uL Baso # (Auto) 0.03 (0-0.2) K/uL Sodium 137 (136-145) mmol/L Potassium 4.4 D (3.5-5.1) mmol/L Chloride 109 H (98-107) mmol/L Carbon Dioxide 21 (21-32) mmol/L Anion Gap 7.0 (3-11) BUN 12 (7-18) mg/dl Creatinine 0.72 (0.6-1.2) mg/dl Est Cr Clr Drug Dosing 80.4 ml/min Est GFR ( Amer) 114.8 Est GFR (Non-Af Amer) 99.0 BUN/Creatinine Ratio 16.0 (10-20) Glucose 127 H (70-99) mg/dl POC Glucose 122 H (70-99) mg/dl Calcium 8.2 L (8.5-10.1) mg/dl Magnesium 2.1 (1.8-2.4) mg/dl 12/01/19 12/01/19 12/01/19 Range/Units 16:40 13:01 11:01 WBC (4.8-10.8) K/uL RBC (4.2-5.4) M/uL Hgb (12.0-16.0) g/dL Hct (37-47) % MCV (80-100) fL MCH (25-34) pg MCHC (32-36) g/dL RDW Std Deviation (36.4-46.3) fL RDW Coeff of Maik (11.5-14.5) % Plt Count (130-400) K/uL MPV (7.4-10.4) fL Immature Gran % (Auto) % Neut % (Auto) % Lymph % (Auto) % [place] % (Auto) % Eos % (Auto) % Baso % (Auto) % Immature Gran # (Auto) (0.00-0.02) K/uL Neut # (Auto) (1.4-6.5) K/uL Lymph # (Auto) (1.2-3.4) K/uL [place] # (Auto) (0.11-0.59) K/uL Eos # (Auto) (0-0.5) K/uL Baso # (Auto) (0-0.2) K/uL Sodium (136-145) mmol/L Potassium (3.5-5.1) mmol/L Chloride (98-107) mmol/L Carbon Dioxide (21-32) mmol/L Anion Gap (3-11) BUN (7-18) mg/dl Creatinine (0.6-1.2) mg/dl Est Cr Clr Drug Dosing ml/min Est GFR ( Amer) Est GFR (Non-Af Amer) BUN/Creatinine Ratio (10-20) Glucose (70-99) mg/dl POC Glucose 182 H 191 H 162 H (70-99) mg/dl Calcium (8.5-10.1) mg/dl Magnesium (1.8-2.4) mg/dl 12/01/19 12/01/19 Range/Units 07:28 06:14 WBC (4.8-10.8) K/uL RBC (4.2-5.4) M/uL Hgb (12.0-16.0) g/dL Hct (37-47) % MCV (80-100) fL MCH (25-34) pg MCHC (32-36) g/dL RDW Std Deviation (36.4-46.3) fL RDW Coeff of Maik (11.5-14.5) % Plt Count (130-400) K/uL MPV (7.4-10.4) fL Immature Gran % (Auto) % Neut % (Auto) % Lymph % (Auto) % [place] % (Auto) % Eos % (Auto) % Baso % (Auto) % Immature Gran # (Auto) (0.00-0.02) K/uL Neut # (Auto) (1.4-6.5) K/uL Lymph # (Auto) (1.2-3.4) K/uL [place] # (Auto) (0.11-0.59) K/uL Eos # (Auto) (0-0.5) K/uL Baso # (Auto) (0-0.2) K/uL Sodium 137 (136-145) mmol/L Potassium 3.4 L (3.5-5.1) mmol/L Chloride 108 H (98-107) mmol/L Carbon Dioxide 22 (21-32) mmol/L Anion Gap 7.0 (3-11) BUN 12 (7-18) mg/dl Creatinine 0.80 (0.6-1.2) mg/dl Est Cr Clr Drug Dosing 70.8 ml/min Est GFR ( Amer) 101.0 Est GFR (Non-Af Amer) 87.2 BUN/Creatinine Ratio 14.5 (10-20) Glucose 197 H (70-99) mg/dl POC Glucose 199 H (70-99) mg/dl Calcium 8.2 L (8.5-10.1) mg/dl Magnesium 2.6 H (1.8-2.4) mg/dl Medications Administered Current Inpatient Medications Acetaminophen (Tylenol) 650 mg PO Q4H PRN PRN Reason: Pain or Fever Stop: 12/30/19 22:54 Acetaminophen (Tylenol) 650 mg PO Q6H [facility] Stop: 12/31/19 20:59 Last Admin: 12/02/19 02:28 Dose: 650 mg Documented by: Clopidogrel Bisulfate (Plavix) 75 mg PO QPM [facility] Stop: 12/30/19 22:54 Last Admin: 12/01/19 21:17 Dose: 75 mg Documented by: Dextrose (Dextrose 50%) 25 - 50 ml IV UD PRN; Protocol PRN Reason: Hypoglycemia Protocol Stop: 12/30/19 22:54 Duloxetine HCl (Cymbalta) 60 mg PO DAILY [facility] Stop: 12/31/19 08:59 Last Admin: 12/01/19 08:33 Dose: 60 mg Documented by: Folic Acid (Folvite) 1 mg PO DAILY [facility] Stop: 12/31/19 08:59 Last Admin: 12/01/19 08:33 Dose: 1 mg Documented by: Gabapentin (Neurontin) 600 mg PO TID [facility] Stop: 12/30/19 22:54 Last Admin: 12/01/19 21:17 Dose: 600 mg Documented by: Glucagon (Glucagen) 1 mg SQ UD PRN; Protocol PRN Reason: Hypoglycemia Protocol Stop: 12/30/19 22:54 Glucose (Dex4 Glucose) 4 - 8 tabs PO UD PRN; Protocol PRN Reason: Hypoglycemia Protocol Stop: 12/30/19 22:54 Glucose (Glucose 40%) 15 - 30 gm PO UD PRN; Protocol PRN Reason: Hypoglycemia Protocol Stop: 12/30/19 22:54 Potassium Chloride/Dextrose/Sod Cl (D5nss + 20meq Kcl) 20 meq in 1,000 mls @ 75 mls/hr IV .[id number] [facility] Stop: 12/31/19 00:00 Last Admin: 12/02/19 01:15 Dose: 75 mls/hr Documented by: Daptomycin 300 mg/ Syringe 6 mls @ 3 mls/min IV Q24H [facility]; Protocol Stop: 12/07/19 23:29 Last Admin: 12/01/19 22:42 Dose: 3 mls/min Documented by: Piperacillin Sod/Tazobactam (Sod 3.375 gm/ Dextrose) 115 mls @ 28.75 mls/hr IV Q8H [facility]; Protocol Stop: 12/08/19 05:59 Last Admin: 12/02/19 05:19 Dose: 28.8 mls/hr Documented by: Insulin Aspart (Novolog Flexpen) 0 units SC ACHS [facility] Stop: 12/31/19 00:00 Last Admin: 12/01/19 21:34 Dose: Not Given Documented by: Lactobacillus Acidophilus (Floranex) 4 tab PO TID [facility] Stop: 12/30/19 23:29 Last Admin: 12/01/19 21:16 Dose: 4 tab Documented by: Miscellaneous (Order Awaiting Action) 1 ea N/A QS [facility] Stop: 12/31/19 15:59 Last Admin: 12/01/19 23:13 Dose: Not Given Documented by: Miscellaneous (Carbohydrates For Hypoglycemia) 15 - 30 gm PO UD PRN PRN Reason: Hypoglycemia Protocol Stop: 12/30/19 22:54 Miscellaneous Information (Consult) 1 ea N/A UD PRN PRN Reason: Consult Stop: 12/30/19 23:24 Miscellaneous Information (Consult) 1 ea N/A UD PRN PRN Reason: Consult Stop: 12/30/19 23:24 Olanzapine (Zyprexa) 20 mg PO HS [facility] Stop: 12/30/19 22:54 Last Admin: 12/01/19 00:11 Dose: 20 mg Documented by: Ondansetron HCl (Zofran) 4 mg IV Q6H PRN PRN Reason: Nausea Stop: 12/30/19 22:54 Prazosin HCl (Prazosin Hcl) 2 mg PO QPM [facility] Stop: 12/30/19 22:54 Last Admin: 12/01/19 21:17 Dose: 2 mg Documented by: Prednisone (Prednisone) 5 mg PO DAILY [facility] Stop: 12/31/19 08:59 Last Admin: 12/01/19 08:33 Dose: 5 mg Documented by: Senna/Docusate Sodium (Senokot S) 1 tab PO QAM [facility] Stop: 12/31/19 08:59 Last Admin: 12/01/19 08:33 Dose: 1 tab Documented by: Tramadol HCl (Ultram) 50 mg PO Q6H PRN PRN Reason: moderate to severe pain Stop: 12/31/19 19:14 Last Admin: 12/02/19 02:30 Dose: 50 mg Documented by:
[2019-12-02] MEDS: DOCUSATE SODIUM/SENNA 50/8.6MG TAB PO SCH (08:56)
[2019-12-02] MEDS: predniSONE 5 MG TAB PO SCH (08:57)
[2019-12-02] MEDS: LACTOBACILLUS ACIDOPHILUS (FLORANEX) TAB PO SCH ×3 (08:57→21:44)
[2019-12-02] MEDS: GABAPENTIN 600 MG TAB PO SCH ×3 (08:57→21:55)
[2019-12-02] MEDS: DULOXETINE HCL 60 MG CAP PO SCH (08:57)
[2019-12-02] MEDS: FOLIC ACID 1 MG TAB PO SCH (08:57)
[2019-12-02] MEDS: INSULIN ASPART 100 UNITS/ML 3 ML PEN SC SCH ×4 (08:58→21:45)
--- NOTE | 2019-12-02 09:06 | Consultation ---
Date of Consultation December 02, 2019 Assessment & Plan (1) Necrosis of amputation stump of left lower extremity: This point due to the decreased pulses in the groins and the history of stenting in the iliacs we recommend a CT angiogram to better define the iliac circulation. The CT angiogram is recommended due to the decreased pulses in the groins and history of stenting. If there is significant narrowing seen then arteriography and possible invention will be recommended. This will be done in hopes to treat the gangrenous changes locally with debridement and save the knee joint of the amputation site. Thank you very much for letting us participate in the care of this patient. History of Present Illness Reason for Consultation: Gangrene left BKA stump Attending Physician: Dutch Olsen MD History of Present Illness This patient is a 49-year-old female with history of peripheral artery disease, aortoiliac occlusive disease status post bilateral BKA, Rheumatoid arthritis, diabetes, hypertension, presenting with increasing pain and swelling on the left BKA stump. She had a left below-knee amputation stump approximately 2 years ago in the right below-knee amputation approximately year ago. Both of these were done at [place] for peripheral vascular disease. She does have a history of iliac stenting on both sides. She claims over the last 2 weeks the stump is been getting red and black. She denies any rest pain in the stump at this time. Allergies Allergy/AdvReac Type Severity Reaction Status Date / Time onion Allergy Unknown Verified 11/30/19 17:34 Home Medications Home Medications Medication Instructions Recorded Confirmed Type adalimumab 40 mg/0.8 mL 40 mg SQ .ON HOLD 03/20/19 11/30/19 History subcutaneous syringe kit clopidogrel 75 mg tablet 75 mg PO QPM 03/20/19 11/30/19 History duloxetine 60 mg capsule,delayed 60 mg PO DAILY cap 03/20/19 11/30/19 History release folic acid 1 mg tablet 1 mg PO DAILY 03/20/19 11/30/19 History hydroxychloroquine 200 mg tablet 300 mg PO DAILY tab 03/20/19 11/30/19 History methotrexate sodium (PF) 50 mg 50 mg WK 03/20/19 11/30/19 History solution for injection olanzapine 20 mg tablet 20 mg PO HS tab 03/20/19 11/30/19 History prazosin 2 mg capsule 2 mg PO QPM 03/20/19 11/30/19 History sulfasalazine 500 mg tablet 500 mg PO BID tab 03/20/19 11/30/19 History gabapentin 600 mg PO TID 11/15/19 11/30/19 History lisinopril 10 mg PO DAILY 11/15/19 11/30/19 History rosuvastatin 20 mg PO DAILY 11/15/19 11/30/19 History prednisone 5 mg PO DAILY 11/16/19 11/30/19 History Lactobacillus acidoph-L.bulgar 1 tab PO TID #30 tab 11/20/19 11/30/19 Rx [Lactinex] cefdinir 300 mg capsule 300 mg PO BID 9 Days #18 cap 11/27/19 11/30/19 Rx doxycycline hyclate 100 mg capsule 100 mg PO BID 9 Days #18 cap 11/27/19 11/30/19 Rx metformin 500 mg tablet 500 mg PO DAILY 11/27/19 11/30/19 History acetaminophen [Tylenol Extra 1,000 mg PO Q6H PRN 11/30/19 11/30/19 History Strength] Patient History Medical History Acquired absence of left leg below knee (Acute) Acquired absence of right leg below knee (Acute) Adjustment disorder with mixed anxiety and depressed mood (Acute) Amput below knee, unilat (Acute) Chronic hyponatremia Chronic pain syndrome (Acute) Depression with anxiety Diabetes mellitus Inflammatory polyarthropathy (Acute) PVD (peripheral vascular disease) (Acute) Rheumatoid arthritis (Acute) Surgical History History of below-knee amputation of both lower extremities Hx of cholecystectomy (Resolved) Family History Other Cancer Coronary heart disease Hypertension Stroke Social History Preferred Language: Slovenian Communication Ability: Effective Visual Impairment: Limited Hearing Ability: Normal Information Assurance Required: No Beliefs That Will Affect Care: None marital status: Single Current Living Situation: Alone Current Living Situation Comment: HAS CARE AIDS TO HELP. 59 HOURS PER WEEK (7 DAYS) current occupational status: disabled Feels Safe at Home: Yes Safety Concerns: Feels Safe At This Time Smoking Status: Light tobacco smoker Tobacco Type: cigarettes ; Cigarettes Per Day: 5 cigarettes a day ; Second Hand Exposure: No ; Hx Alcohol Use: No Hx Substance Use: No during the past year weight has: remained stable Review of Systems Review of Systems: All systems reviewed & are unremarkable except as noted in HPI & below Physical Exam Constitutional: WD/WN, vitals as above Neck: trachea midline Respiratory: normal respiratory effort, lungs clear to auscultation Cardiovascular: Rate/Rhythm: regular rate and regular rhythm Heart Sounds: normal S1 and normal S2 Vessels: femoral pulses present (Decreased bilaterally.); no carotid bruit Extremities: + edema (Mild edema left below- knee amputation stump.) Gastrointestinal (Abdomen): Inspection/Auscultation: abdomen normal to inspection; abdomen not distended Percussion/Palpation: abdomen soft; abdomen nontender Musculoskeletal: She has bilateral below-knee amputation stumps. The right is well-healed with no evidence of infection. The left has cellulitic changes to the knee and gangrenous changes to the end of the stump. Skin: Gangrene of the left below-knee amputation stump. There is cellulitis around this area extending up to the knee joint. Neurologic: normal touch/pain/proprioception, CN's II-XI intact bilaterally, moves all extremities and awake Psychiatric: Orientation: alert and oriented x 3 Results & Data Vital Signs (Past 12 Hours) Vital Signs Temp Pulse Pulse Resp BP Pulse Ox 12/02/19 07:45 36.7 C 74 18 102/58 L 99 12/02/19 07:31 72 12/02/19 04:22 36.7 C 73 18 104/67 93 12/01/19 23:58 75 12/01/19 23:07 36.3 C L 78 20 95/61 L 92
--- NOTE | 2019-12-02 09:23 | Infectious Disease Consult ---
Date of Consultation December 02, 2019 Assessment & Plan (1) Infection of below knee amputation stump: agree with current abx, follow cultures. Await surgical plan, duration of abx will depend on extent of surgery. will follow and adust abx based on culture results. (2) Necrosis of amputation stump of left lower extremity: History of Present Illness Attending Physician: Dutch Olsen MD pt admitted with redness and pain on bka stump. was admitted earlier this month for the same. MRI on 11/17 showed cellulitis but no osteo. blood cultures were negative, wound culture on 11/15 grew normal skin mojgan. she was evaluated by orthno, no intervention planned. she was d/c on emperic cefdinir and doxy with plans to follow in wound center and [facility] ortho if any surgical intervention needed. she was at wound center on 11/26- noted and photo reviewed, necrotic gangranous wound noted. no erythema noted. no f/c, afebrile since admission, wbc normal. placed on dapto and zosyn emperically, tolerating well. blood cultures pending, wound culture growing GNR. s/o ortho eval, ? AKA vs I&D depending on vascular status, she is also being evaluated by vascular for potential revision in order to allow wound healing and preserve stump. Allergies Allergy/AdvReac Type Severity Reaction Status Date / Time onion Allergy Unknown Verified 11/30/19 17:34 Home Medications Home Medications Medication Instructions Recorded Confirmed Type adalimumab 40 mg/0.8 mL 40 mg SQ .ON HOLD 03/20/19 11/30/19 History subcutaneous syringe kit clopidogrel 75 mg tablet 75 mg PO QPM 03/20/19 11/30/19 History duloxetine 60 mg capsule,delayed 60 mg PO DAILY cap 03/20/19 11/30/19 History release folic acid 1 mg tablet 1 mg PO DAILY 03/20/19 11/30/19 History hydroxychloroquine 200 mg tablet 300 mg PO DAILY tab 03/20/19 11/30/19 History methotrexate sodium (PF) 50 mg 50 mg WK 03/20/19 11/30/19 History solution for injection olanzapine 20 mg tablet 20 mg PO HS tab 03/20/19 11/30/19 History prazosin 2 mg capsule 2 mg PO QPM 03/20/19 11/30/19 History sulfasalazine 500 mg tablet 500 mg PO BID tab 03/20/19 11/30/19 History gabapentin 600 mg PO TID 11/15/19 11/30/19 History lisinopril 10 mg PO DAILY 11/15/19 11/30/19 History rosuvastatin 20 mg PO DAILY 11/15/19 11/30/19 History prednisone 5 mg PO DAILY 11/16/19 11/30/19 History Lactobacillus acidoph-L.bulgar 1 tab PO TID #30 tab 11/20/19 11/30/19 Rx [Lactinex] cefdinir 300 mg capsule 300 mg PO BID 9 Days #18 cap 11/27/19 11/30/19 Rx doxycycline hyclate 100 mg capsule 100 mg PO BID 9 Days #18 cap 11/27/19 11/30/19 Rx metformin 500 mg tablet 500 mg PO DAILY 11/27/19 11/30/19 History acetaminophen [Tylenol Extra 1,000 mg PO Q6H PRN 11/30/19 11/30/19 History Strength] Patient History Medical History Acquired absence of left leg below knee (Acute) Acquired absence of right leg below knee (Acute) Adjustment disorder with mixed anxiety and depressed mood (Acute) Amput below knee, unilat (Acute) Chronic hyponatremia Chronic pain syndrome (Acute) Depression with anxiety Diabetes mellitus Inflammatory polyarthropathy (Acute) PVD (peripheral vascular disease) (Acute) Rheumatoid arthritis (Acute) Surgical History History of below-knee amputation of both lower extremities Hx of cholecystectomy (Resolved) Family History Other Cancer Coronary heart disease Hypertension Stroke Social History Preferred Language: Turkish Communication Ability: Effective Visual Impairment: Limited Hearing Ability: Normal Estate Planning Attorney Required: No Beliefs That Will Affect Care: None marital status: Single Current Living Situation: Alone Current Living Situation Comment: HAS CARE AIDS TO HELP. 59 HOURS PER WEEK (7 DAYS) current occupational status: disabled Feels Safe at Home: Yes Safety Concerns: Feels Safe At This Time Smoking Status: Light tobacco smoker Tobacco Type: cigarettes ; Cigarettes Per Day: 5 cigarettes a day ; Second Hand Exposure: No ; Hx Alcohol Use: No Hx Substance Use: No during the past year weight has: remained stable Review of Systems Review of Systems: per h&P Physical Exam Skin: + wound (photo reviewed, necrosis of stump, no drainage) Results & Data ([facility]) Vital Signs (Past 12 Hours) Vital Signs Temp Pulse Pulse Resp BP Pulse Ox 12/02/19 07:45 36.7 C 74 18 102/58 L 99 12/02/19 07:31 72 12/02/19 04:22 36.7 C 73 18 104/67 93 12/01/19 23:58 75 12/01/19 23:07 36.3 C L 78 20 95/61 L 92 Laboratory Results Microbiology 12/01/19 00:00 Leg,Left Gram Stain - Final 12/01/19 00:00 Leg,Left Wound Culture - Preliminary Gram negative bacilli 11/30/19 16:22 Blood Aerobic Blood Culture - Preliminary No growth in Aerobic bottle after 24 hours. 11/30/19 16:22 Blood Anaerobic Blood Culture - Preliminary No growth in Anaerobic bottle after 24 hours. 11/30/19 16:04 Blood Aerobic Blood Culture - Preliminary No growth in Aerobic bottle after 24 hours. 11/30/19 16:04 Blood Anaerobic Blood Culture - Preliminary No growth in Anaerobic bottle after 24 hours. PG Care Time/CCT Total # of Minutes Spent Total Time Spent with Patient: Total time spent is greater than 50% in coordination of care (as documented) at patient's floor/unit and/or counseling patient: Coding Level of Care Code 82860 Inpt Consult Level 2 Diagnoses Infection of below knee amputation stump T87.40 Necrosis of amputation stump of left lower extremity T87.54
[2019-12-02] MEDS ORDERED: OPTIRAY 320 125ml IV PRN (10:14)
--- NOTE | 2019-12-02 10:26 | CT Scan Report ---
CT angio abd pelvis wo/w con CLINICAL HISTORY: 49 years-old Female presenting with gangrene left BKA stump. TECHNIQUE: Multidetector CT angiography of the abdomen and pelvis was performed after the administrat ion of intravenous contrast. 3-D volumetric and/or maximum intensity projection (MIP) images were sub sequently reconstructed for review. IV contrast: 120 mL of Optiray 320. One or more dose lowering ney hniques were used consistent with the principles of ALARA (as low as reasonably achievable), includin g automatic exposure control, mA or kV adjustment to individual patient size, and/or use of iterative reconstruction. Stenosis measurements were based on NASCET-like criteria (distal lumen diameter as t he denominator for stenosis measurement). COMPARISON: CT of the left femur from yesterday. CT DOSE (mGy.cm): The estimated cumulative dose is 1832.75 mGycm. 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 Vasculature: Bilateral common and right external iliac artery stents. These are patent and without evidence of in- stent stenosis. Diffusely stenotic left external iliac artery, which is not stented. This stenosis is presumably due to diffuse noncalcified atherosclerotic plaque resulting in a minimum diameter of 1 m m (series 5 image 268). Bilaterally narrow though patent common, superficial, and deep femoral arteri es and the visualized portions. Postsurgical changes noted in the left inguinal region. Bilateral int ernal iliac arteries also patent. More superiorly, the abdominal aorta is normal in course and caliber though there is significant anom bessie noncalcified atherosclerotic plaque in the infrarenal portion resulting in luminal irregularity i s overall no significant ectasia. Celiac, superior mesenteric, and bilateral single renal arteries pa tent. The origin and proximal course of the inferior mesenteric artery are poorly opacified, possibly stenotic or occluded though the mid to distal course is patent. Remaining abdomen and pelvis: Lung bases: Normal heart size. No pericardial or pleural effusion. Minimal dependent changes likely a telectasis. Mosaic attenuation also evident. Liver: Normal morphology. No liver lesion allowing for the early arterial phase of contrast. Moderate hepatic steatosis. Patent hepatic vasculature. Conventional hepatic arterial anatomy. Biliary: Mild biliary ductal prominence likely a reservoir effect in the post cholecystectomy state. Gallbladder surgically absent. Pancreas: Normal. Spleen: Normal. Adrenal glands: Normal. Kidneys and ureters: Normal. No hydronephrosis. Bladder: Incompletely evaluated secondary to underdistention. Pelvic organs: Uterus may be partially surgically absent or atrophic. Ovaries normal. Bowel: Fluid in the colon suggests a diarrheal state. No colonic wall thickening. The appendix is nor mal. Mild fluid volume also evident in the small bowel distally without small bowel wall thickening. No bowel obstruction. Peritoneal cavity: No free fluid or intraperitoneal gas. Lymph nodes: Enlarged left inguinal lymph nodes. These are likely reactive. Prominent though subcenti meter left external iliac lymph nodes. Abdominal wall: Postsurgical changes in the left inguinal region as mentioned. Small fat-containing u mbilical hernia. Musculoskeletal: Degenerative changes of the spine. IMPRESSION: 1. Severely stenotic left external iliac artery secondary to diffuse noncalcified atherosclerosis wi th a minimum patent diameter of 1 mm. 2. Patent bilateral common iliac artery stents and right external iliac artery stent. No evidence of in-stent stenosis. 3. Atherosclerosis of the abdominal aorta without evidence of aneurysm, dissection, occlusion, or pe netrating ulcer. 4. Moderate hepatic steatosis. 5. Fluid in the colon and distal small bowel may suggest a diarrheal state. No evidence of a more si gnificant colitis or enteritis. 6. Reactive left inguinal and left external iliac lymph nodes likely from the reported gangrene of t he left below the knee amputation stump. ACT 112: Negative or not required by law. Electronically signed by: Ayden Khalil M.D. 12/02/2019 10:25 AM
[2019-12-02] MEDS ORDERED: SODIUM CHLORIDE 0.9% 1000ML 500 ML IV ONE (16:44)
[2019-12-02] MEDS: CLOPIDOGREL BISULFATE 75 MG TAB PO SCH (21:43)
[2019-12-02] MEDS: PRAZOSIN HCL 1 MG CAP PO SCH (21:43)
[2019-12-03] MEDS: DAPTOmycin 300 MG in SYRINGE 0 ML IV SCH ×2 (00:42→23:23)
[2019-12-03] MEDS: ACETAMINOPHEN 325 MG TAB PO SCH ×4 (04:04→20:29)
[2019-12-03] MEDS: TRAMADOL HCL 50 MG TABLET PO PRN ×2 (04:53→20:32)
[2019-12-03] MEDS: PIPERACILLIN/TAZOBACTAM 3.375 GM in DEXTROSE 5% 100 ML IV SCH ×3 (05:49→21:42)
[2019-12-03] MEDS: D5NSS + 20MEQ KCL 20 MEQ/1,000 ML BAG IV SCH ×2 (05:51→17:40)
[2019-12-03] MEDS ORDERED: CEFAZOLIN 1000MG 1,000 MG/7.5 ML SYR IV SCH (06:00)
[2019-12-03] MEDS ORDERED: SODIUM CHLORIDE 0.9% 1000ML 1,000 ML IV SCH (06:00)
[2019-12-03 07:24] LABS: Basophils # (auto) 0.01 K/uL (0-0.2); Basophils % (auto) 0.1 %; Eosinophils % (auto) 1.1 %; Hematocrit (blood only) 32.6 % (37-47); Hemoglobin 10.3 g/dL (12.0-16.0); Immature Granulocytes # (auto) 0.01 K/uL (0.00-0.02); Immature Granulocytes % (auto) 0.1 %; Lymphocytes # (auto) 3.48 K/uL (1.2-3.4); Lymphocytes % (auto) 37.6 %; Mean Corpuscular Hemoglobin 27.2 pg (25-34); Mean Corpuscular Hgb Conc 31.6 g/dL (32-36); Mean Platelet Volume 9.3 fL (7.4-10.4); Monocytes # (auto) 0.34 K/uL (0.11-0.59); Monocytes % (auto) 3.7 %; Neutrophils # (auto) 5.31 K/uL (1.4-6.5); Neutrophils % (auto) 57.4 %; Platelet Count 323 K/uL (130-400); RDW Standard Deviation 43.9 fL (36.4-46.3); Red Blood Count 3.79 M/uL (4.2-5.4); White Blood Count 9.25 K/uL (4.8-10.8)
[2019-12-03 07:34] LABS: Prothrombin Time 10.9 Seconds (9.0-12.0)
--- NOTE | 2019-12-03 07:39 | History & Physical Bridge Note ---
Date of Service December 03, 2019 History & Physical Bridge Note Patient for arteriography with possible intervention. I have discussed the risks options and benefits of the procedure with the patient. The patient understands the risks options and benefits and agrees to the procedure. I have examined the patient, reviewed the History & Physical and in the interval since the performance of the History & Physical I have noted the following changes of clinical significance: no changes noted
[2019-12-03] MEDS ORDERED: LIDOCAINE HCL 1% 20 ML VIAL ONE (07:44)
[2019-12-03] MEDS ORDERED: HEPARIN SOD (PORCINE) 1000 UNIT/ML 10 ML VIAL ONE (07:44)
[2019-12-03 07:59] LABS: BUN Creatinine Ratio 12.6 (10-20); Calcium 8.4 mg/dl (8.5-10.1); Creatinine Clr Calc Pharmacy 80.7 ml/min; Est GFR (African American) 114.8; Potassium 3.8 mmol/L (3.5-5.1)
--- NOTE | 2019-12-03 08:00 | Communication Note ---
Date of Service: December 03, 2019 Patient with V tach this morning. Being worked up by medicine service. Will postpone angio to tomorrow
[2019-12-03] MEDS: INSULIN ASPART 100 UNITS/ML 3 ML PEN SC SCH ×4 (08:09→20:05)
[2019-12-03] MEDS ORDERED: POTASSIUM CHLORIDE 20 MEQ TABCR PO STA (08:12)
--- NOTE | 2019-12-03 08:16 | Hospitalist Progress Note ---
Date of Service December 03, 2019 Assessment & Plan (1) Infection of below knee amputation stump: 49-year-old female with history of peripheral artery disease, aortic iliac occlusive disease status post bilateral BKA, Rheumatoid arthritis on chronic prednisone, diabetes type 2, hypertension dys lipidemia presenting with increasing pain and swelling of the left BKA stump. POSSIBLE SEPSIS SECONDARY TO LEFT BKA STUMP NONHEALING INFECTED WOUND, CELLULITIS --Was discharged from [facility] on doxycycline and cefdinir last November 21, 2019 but patient's wound and cellulitis continue to progress --Patient presents with heart rate of 106, leukocytosis of 13,900, and infected left BKA wound Lactic acid normalized from 2.6-1.7 within 2 hours in the emergency room --Obtain blood and wound cultures CT of the left lower extremity obtained - significant for 2.5 cm complex fluid collection inferior to the oper. site/ may be abscess --Started on daptomycin and Zosyn IV, will cont. IV D5 NSS --Orthopedics consulted for possible BKA -- need to discuss plan for surgery w/ vascular surgeon -- vasculary surgery consulted - CT abd/pelvis angio ordered, given results, plan for B/l iliac stenting (12/03 AM) - pt was supposed to undergo procedure w/ vascular surg. today (12/02) - will delay d/t VT/SVT episode this AM noted on telemetry - and will further evaluate --Infectious disease and wound care also consulted --IV morphine, [place] for pain Abnormal heart rhythm - run of VT followed by SVT this AM (12/02), notified by telemetry staff - previously in sinus, and then back to sinus after this episode - EKG on 11/14 unremarkable - no Echo on file, electrolytes wnl this AM, pt is not on any beta liss - will obtain Echo and will discussed w/ cardiology - cont. to closely monitor on tele HISTORY OF PERIPHERAL ARTERY DISEASE, AORTOILIAC OCCLUSION STATUS POST BILATERAL BKA --Continue Plavix, hold rosuvastatin as patient is on daptomycin RHEUMATOID ARTHRITIS --On chronic prednisone 5 mg p.o. daily Currently hemodynamically stable, but if patient becomes hypotensive or orthopedic surgeries planned, provide hydrocortisone IV stress dose --Hold usual sulfasalazine, Plaquenil, methotrexate for now, discussed with generator worker regarding resumption of this medications DIABETES TYPE 2 --[place] to be steroid induced --Hold metformin, insulin sliding scale ordered HYPERTENSION - BP on lower side -- hold lisinopril HYPOMAGNESEMIA --Replace and Monitor DVT prophylaxis --Anticoagulation on hold in light of possible orthopedic procedure CODE STATUS --Full code Disposition Patient usually lives at home but will need PT and OT evaluation Admission and Anticipated Discharge Date Admission Date: November 30, 2019 Subjective Notified by telemetry monitoring staff this AM - pt had a run of VT followed by SVT. Discussed with Dr. De as pt was scheduled for vasc. procedure - re-scheduled for tomorrow. No echo found in the chart. Pt is not on any beta liss. EKG from 11/14 - unremarkable. Will obtain echo to further eval, and will discuss w/ cardiology. Pt is completely asymptomatic, no palpitations, chest pain, shortness of breath, dizziness, lightheadedness. Also denies any bad. pain, nausea or vomiting. Review of Systems Review of Systems: All systems reviewed & are unremarkable except as noted in HPI & below Constitutional: + chills; no fever Respiratory: no cough and no dyspnea Cardiovascular: no chest pain, no palpitations and no lightheadedness Gastrointestinal: no abdominal pain, no nausea and no vomiting Musculoskeletal: L stump pain (improved) Physical Exam Physical Exam: General- alert and oriented middle aged female, not in acute distress Head- NC/AT Eyes- PERRL, EOMI, anicteric ENT- oropharynx clear Neck- supple, no JVD, no adenopathy Lungs- normal respiratory effort, clear to auscultation bilaterally, no rales/wheezes Heart- normal rate, regular rhythm; no murmur Abdomen- normal bowel sounds, nondistended, soft, nontender Extremities-positive bilateral BKA Left BKA stump: Compared to images taken last November 22, 2019, positive increased edema, erythema, extension of eschar, and minimal serosanguineous drainage Right BKA stump: Essentially normal Neuro- alert, oriented x 3; speech fluent and answers questions appropriately, moves all extremities spontaneously, no sensory loss noted Skin- warm & dry Results & Data Results & Data ([facility]) Vital Signs (Past 12 Hours) Vital Signs Temp Pulse Pulse Resp BP BP Pulse Ox 12/03/19 07:32 36.5 C 82 18 102/70 97 12/03/19 03:40 36.4 C L 82 18 90/62 L 96 12/03/19 02:49 78 12/03/19 00:20 36.4 C L 82 18 109/73 95 Laboratory Results 12/03/19 12/03/19 12/03/19 Range/Units 07:26 06:59 06:59 WBC 9.25 (4.8-10.8) K/uL RBC 3.79 L (4.2-5.4) M/uL Hgb 10.3 L (12.0-16.0) g/dL Hct 32.6 L (37-47) % MCV 86.0 (80-100) fL MCH 27.2 (25-34) pg MCHC 31.6 L (32-36) g/dL RDW Std Deviation 43.9 (36.4-46.3) fL RDW Coeff of Maik 14.0 (11.5-14.5) % Plt Count 323 (130-400) K/uL MPV 9.3 (7.4-10.4) fL Immature Gran % (Auto) 0.1 % Neut % (Auto) 57.4 % Lymph % (Auto) 37.6 % [place] % (Auto) 3.7 % Eos % (Auto) 1.1 % Baso % (Auto) 0.1 % Immature Gran # (Auto) 0.01 (0.00-0.02) K/uL Neut # (Auto) 5.31 (1.4-6.5) K/uL Lymph # (Auto) 3.48 H (1.2-3.4) K/uL [place] # (Auto) 0.34 (0.11-0.59) K/uL Eos # (Auto) 0.10 (0-0.5) K/uL Baso # (Auto) 0.01 (0-0.2) K/uL PT (9.0-12.0) Seconds INR (0.9-1.1) Sodium 141 (136-145) mmol/L Potassium 3.8 (3.5-5.1) mmol/L Chloride 112 H (98-107) mmol/L Carbon Dioxide 24 (21-32) mmol/L Anion Gap 5.0 (3-11) BUN 9 (7-18) mg/dl Creatinine 0.72 (0.6-1.2) mg/dl Est Cr Clr Drug Dosing 80.7 ml/min Est GFR ( Amer) 114.8 Est GFR (Non-Af Amer) 99.0 BUN/Creatinine Ratio 12.6 (10-20) Glucose 92 (70-99) mg/dl POC Glucose 99 (70-99) mg/dl Calcium 8.4 L (8.5-10.1) mg/dl Magnesium 2.0 (1.8-2.4) mg/dl 12/03/19 12/02/19 12/02/19 Range/Units 06:59 20:49 16:26 WBC (4.8-10.8) K/uL RBC (4.2-5.4) M/uL Hgb (12.0-16.0) g/dL Hct (37-47) % MCV (80-100) fL MCH (25-34) pg MCHC (32-36) g/dL RDW Std Deviation (36.4-46.3) fL RDW Coeff of Maik (11.5-14.5) % Plt Count (130-400) K/uL MPV (7.4-10.4) fL Immature Gran % (Auto) % Neut % (Auto) % Lymph % (Auto) % [place] % (Auto) % Eos % (Auto) % Baso % (Auto) % Immature Gran # (Auto) (0.00-0.02) K/uL Neut # (Auto) (1.4-6.5) K/uL Lymph # (Auto) (1.2-3.4) K/uL [place] # (Auto) (0.11-0.59) K/uL Eos # (Auto) (0-0.5) K/uL Baso # (Auto) (0-0.2) K/uL PT 10.9 (9.0-12.0) Seconds INR 1.0 (0.9-1.1) Sodium (136-145) mmol/L Potassium (3.5-5.1) mmol/L Chloride (98-107) mmol/L Carbon Dioxide (21-32) mmol/L Anion Gap (3-11) BUN (7-18) mg/dl Creatinine (0.6-1.2) mg/dl Est Cr Clr Drug Dosing ml/min Est GFR ( Amer) Est GFR (Non-Af Amer) BUN/Creatinine Ratio (10-20) Glucose (70-99) mg/dl POC Glucose 115 H 128 H (70-99) mg/dl Calcium (8.5-10.1) mg/dl Magnesium (1.8-2.4) mg/dl 12/02/19 Range/Units 11:01 WBC (4.8-10.8) K/uL RBC (4.2-5.4) M/uL Hgb (12.0-16.0) g/dL Hct (37-47) % MCV (80-100) fL MCH (25-34) pg MCHC (32-36) g/dL RDW Std Deviation (36.4-46.3) fL RDW Coeff of Maik (11.5-14.5) % Plt Count (130-400) K/uL MPV (7.4-10.4) fL Immature Gran % (Auto) % Neut % (Auto) % Lymph % (Auto) % [place] % (Auto) % Eos % (Auto) % Baso % (Auto) % Immature Gran # (Auto) (0.00-0.02) K/uL Neut # (Auto) (1.4-6.5) K/uL Lymph # (Auto) (1.2-3.4) K/uL [place] # (Auto) (0.11-0.59) K/uL Eos # (Auto) (0-0.5) K/uL Baso # (Auto) (0-0.2) K/uL PT (9.0-12.0) Seconds INR (0.9-1.1) Sodium (136-145) mmol/L Potassium (3.5-5.1) mmol/L Chloride (98-107) mmol/L Carbon Dioxide (21-32) mmol/L Anion Gap (3-11) BUN (7-18) mg/dl Creatinine (0.6-1.2) mg/dl Est Cr Clr Drug Dosing ml/min Est GFR ( Amer) Est GFR (Non-Af Amer) BUN/Creatinine Ratio (10-20) Glucose (70-99) mg/dl POC Glucose 108 H (70-99) mg/dl Calcium (8.5-10.1) mg/dl Magnesium (1.8-2.4) mg/dl
[2019-12-03] MEDS: DULOXETINE HCL 60 MG CAP PO SCH (08:18)
[2019-12-03] MEDS: DOCUSATE SODIUM/SENNA 50/8.6MG TAB PO SCH (08:18)
[2019-12-03] MEDS: GABAPENTIN 600 MG TAB PO SCH ×3 (08:18→20:29)
[2019-12-03] MEDS: FOLIC ACID 1 MG TAB PO SCH (08:18)
[2019-12-03] MEDS: LACTOBACILLUS ACIDOPHILUS (FLORANEX) TAB PO SCH ×3 (08:18→20:29)
[2019-12-03] MEDS: predniSONE 5 MG TAB PO SCH (08:18)
--- NOTE | 2019-12-03 09:52 | Infectious Disease Progress Nt ---
Date of Service December 03, 2019 Assessment & Plan (1) Infection of below knee amputation stump: agree with current abx, follow cultures. Await surgical plan, duration of abx will depend on extent of surgery. will follow and adust abx based on culture results. (2) Necrosis of amputation stump of left lower extremity: Admission and Anticipated Discharge Date Admission Date: November 30, 2019 Subjective pt initially scheduled for angiogram today with vascular surgery but placed on hold due to episode vtach. she remains afebrile. on dapto and zosyn, tolerating well. wbc 9, creat 0.7, blood cultures remain negative, wound culture growing GNR, final pending. Results & Data ([facility]) Vital Signs (Past 12 Hours) Vital Signs Temp Pulse Pulse Resp BP BP Pulse Ox 12/03/19 07:32 36.5 C 82 18 102/70 97 12/03/19 03:40 36.4 C L 82 18 90/62 L 96 12/03/19 02:49 78 12/03/19 00:20 36.4 C L 82 18 109/73 95 Laboratory Results Microbiology 11/30/19 16:22 Blood Aerobic Blood Culture - Preliminary No growth in Aerobic bottle after 48 hours. 11/30/19 16:22 Blood Anaerobic Blood Culture - Preliminary No growth in Anaerobic bottle after 48 hours. 11/30/19 16:04 Blood Aerobic Blood Culture - Preliminary No growth in Aerobic bottle after 48 hours. 11/30/19 16:04 Blood Anaerobic Blood Culture - Preliminary No growth in Anaerobic bottle after 48 hours. 12/01/19 00:00 Leg,Left Gram Stain - Final 12/01/19 00:00 Leg,Left Wound Culture - Preliminary Gram negative bacilli PG Care Time/CCT Total # of Minutes Spent Total Time Spent with Patient: Total time spent is greater than 50% in coordination of care (as documented) at patient's floor/unit and/or counseling patient: Coding Level of Care Code 28710 Subseq Hosp Care Lvl 1 Diagnoses Infection of below knee amputation stump T87.40 Necrosis of amputation stump of left lower extremity T87.54
--- NOTE | 2019-12-03 16:49 | Cardiology Consultation ---
Date of Consultation December 03, 2019 Assessment & Plan (1) PAT (paroxysmal atrial tachycardia): Patient with 9 beat run of tachycardia asymptomatic 12/03/2019. Rhythm began as wide and narrowed consistent with aberrant conduction, atrial tachycardia We will initiate empiric therapy with low-dose beta-liss continue antihypertensive regimen minimize QT prolonging drugs Overall pressing issue is nonhealing BKA stump and vascular disease. Would proceed as planned with vascular evaluation and therapy. Maintain telemetry (2) Abnormal EKG: EKG and evaluation of arrhythmia's morning demonstrates T wave in anterior leads. Patient high risk for underlying coronary disease but no signs or symptoms of past or current ischemia with preserved LV systolic function. Beta-liss added to regimen. Patient already on BRAIN inhibitor and statin and antiplatelet therapy. (3) Infection of below knee amputation stump: As above current pressing and supersedes any additional cardiac evaluation in asymptomatic patient (4) PVD (peripheral vascular disease): Continue antiplatelet therapy and medications as noted. Patient n.p.o. for procedure in a.m. Tobacco cessation mandated (5) Aortic valve cusp abnormality: Echocardiogram demonstrates focal calcification on the left coronary cusp. Given underlying infectious process vegetation not completely excluded. Patient's blood cultures have been negative on multiple testing however patient on antibiotic therapies prior to evaluation. Aortic valve is competent without stenosis or insufficiency or abscess. Would recommend serial echocardiograms and follow-up History of Present Illness Reason for Consultation: Abnormal EKG, telemetry Requesting Physician: Dr Olsen Attending Physician: Dutch Olsen MD History of Present Illness Patient is a 49-year-old female underlying history of significant peripheral vascular disease admitted with nonhealing wound infection of left BKA stump. Her past medical history is notable for 1. Extensive aortoiliac occlusive disease 2. Status post bilateral common iliac angioplasty and stenting right external iliac angioplasty and stenting 2015 and ultimately left BKA due to nonsalvageable ischemic disease 3. Status post bilateral common iliac artery angioplasty (in-stent) August 2018 followed by right BKA 4. Rheumatoid arthritis on chronic immunosuppressive therapy 5. Chronic tobacco use 6. Hypertension 7. Hyperlipidemia on therapy 6. Type 2 diabetes mellitus Patient admitted with nonhealing ulcer and cellulitis of left BKA stump despite extensive course of antibiotic therapy now approximately 1 month course. CTA of the peripheral vascular demonstrates left external iliac disease. Patient today was anticipating vascular procedure and on routine telemetry was noted to have a 7 beat run of rapid heart rhythm earlier this morning. Procedure canceled and patient referred now later today for further evaluation. Patient denies any prior history of cardiac disease notes no chest pains angina congestive heart failure tachypalpitations syncope or near syncope. She does have extensive vascular history as above and familial history of coronary artery disease. Patient is attempting to wean from tobacco use. No fevers or chills currently. No visual changes headaches. Arthritic complaints are stable. No bleeding issues melena medication dysuria hematuria. Review of telemetry reveals likely atrial tachycardia with aberrant conduction 7 beats in duration. EKG new T wave version anterolateral leads. Echocardiogram demonstrates normal to hyperdynamic LV systolic function without wall motion or normality. The aortic valve is focal calcification and thickening of the left coronary cusp, vegetation not excluded without valvular compromise or insufficiency Allergies Allergy/AdvReac Type Severity Reaction Status Date / Time onion Allergy Unknown Verified 11/30/19 17:34 Home Medications Home Medications Medication Instructions Recorded Confirmed Type adalimumab 40 mg/0.8 mL 40 mg SQ .ON HOLD 03/20/19 11/30/19 History subcutaneous syringe kit clopidogrel 75 mg tablet 75 mg PO QPM 03/20/19 11/30/19 History duloxetine 60 mg capsule,delayed 60 mg PO DAILY cap 03/20/19 11/30/19 History release folic acid 1 mg tablet 1 mg PO DAILY 03/20/19 11/30/19 History hydroxychloroquine 200 mg tablet 300 mg PO DAILY tab 03/20/19 11/30/19 History methotrexate sodium (PF) 50 mg 50 mg WK 03/20/19 11/30/19 History solution for injection olanzapine 20 mg tablet 20 mg PO HS tab 03/20/19 11/30/19 History prazosin 2 mg capsule 2 mg PO QPM 03/20/19 11/30/19 History sulfasalazine 500 mg tablet 500 mg PO BID tab 03/20/19 11/30/19 History gabapentin 600 mg PO TID 11/15/19 11/30/19 History lisinopril 10 mg PO DAILY 11/15/19 11/30/19 History rosuvastatin 20 mg PO DAILY 11/15/19 11/30/19 History prednisone 5 mg PO DAILY 11/16/19 11/30/19 History Lactobacillus acidoph-L.briangar 1 tab PO TID #30 tab 11/20/19 11/30/19 Rx [Lactinex] cefdinir 300 mg capsule 300 mg PO BID 9 Days #18 cap 11/27/19 11/30/19 Rx doxycycline hyclate 100 mg capsule 100 mg PO BID 9 Days #18 cap 11/27/19 11/30/19 Rx metformin 500 mg tablet 500 mg PO DAILY 11/27/19 11/30/19 History acetaminophen [Tylenol Extra 1,000 mg PO Q6H PRN 11/30/19 11/30/19 History Strength] Patient History Medical History Acquired absence of left leg below knee (Acute) Acquired absence of right leg below knee (Acute) Adjustment disorder with mixed anxiety and depressed mood (Acute) Amput below knee, unilat (Acute) Chronic hyponatremia Chronic pain syndrome (Acute) Depression with anxiety Diabetes mellitus Inflammatory polyarthropathy (Acute) PVD (peripheral vascular disease) (Acute) Rheumatoid arthritis (Acute) Surgical History History of below-knee amputation of both lower extremities Hx of cholecystectomy (Resolved) Family History Other Cancer Coronary heart disease Hypertension Stroke Social History Preferred Language: Malay Communication Ability: Effective Visual Impairment: Limited Hearing Ability: Normal 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 59 HOURS PER WEEK (7 DAYS) current occupational status: disabled Feels Safe at Home: Yes Safety Concerns: Feels Safe At This Time Smoking Status: Light tobacco smoker Tobacco Type: cigarettes ; Cigarettes Per Day: 5 cigarettes a day ; Second Hand Exposure: No ; Hx Alcohol Use: No Hx Substance Use: No during the past year weight has: remained stable Physical Exam Constitutional: + obese; no acute distress Eyes: PERRL, conjunctivae normal, anicteric sclerae ENMT: external ear and nose normal, oropharynx normal Neck: + thick neck Respiratory: Auscultation: + diminished lung sounds (Clear to auscultation) Cardiovascular: Heart Sounds: normal S1, normal S2 and + murmur (Grade 1/6 systolic, no diastolic); no gallop Vessels: no JVD and no carotid bruit Gastrointestinal (Abdomen): normal bowel sounds, soft, nontender, no hepatosplenomegaly Percussion/Palpation: + hepatosplenomegaly Musculoskeletal: Bilateral BKA with bandage left lower extremity Neurologic: PERRL, EOMI, accommodation nl, no face palsy, no dysarthria Psychiatric: A+Ox3, euthymic affect Results & Data ([facility]) Vital Signs (Past 12 Hours) Vital Signs Temp Pulse Pulse Resp BP BP Pulse Ox 12/03/19 16:00 36.5 C 85 18 137/81 97 12/03/19 10:50 36.3 C L 81 20 107/63 98 12/03/19 08:00 75 12/03/19 07:32 36.5 C 82 18 102/70 97 Laboratory Results Laboratory Results - last 24 hr 12/02/19 12/03/19 12/03/19 20:49 06:59 06:59 WBC 9.25 RBC 3.79 L Hgb 10.3 L Hct 32.6 L MCV 86.0 MCH 27.2 MCHC 31.6 L RDW Std Deviation 43.9 RDW Coeff of Maik 14.0 Plt Count 323 MPV 9.3 Immature Gran % (Auto) 0.1 Neut % (Auto) 57.4 Lymph % (Auto) 37.6 Leslie % (Auto) 3.7 Eos % (Auto) 1.1 Baso % (Auto) 0.1 Immature Gran # (Auto) 0.01 Neut # (Auto) 5.31 Lymph # (Auto) 3.48 H Leslie # (Auto) 0.34 Eos # (Auto) 0.10 Baso # (Auto) 0.01 PT 10.9 INR 1.0 Sodium Potassium Chloride Carbon Dioxide Anion Gap BUN Creatinine Est Cr Clr Drug Dosing Est GFR ( Amer) Est GFR (Non-Af Amer) BUN/Creatinine Ratio Glucose POC Glucose 115 H Calcium Magnesium 12/03/19 12/03/19 12/03/19 06:59 07:26 11:46 WBC RBC Hgb Hct MCV MCH MCHC RDW Std Deviation RDW Coeff of Maik Plt Count MPV Immature Gran % (Auto) Neut % (Auto) Lymph % (Auto) Leslie % (Auto) Eos % (Auto) Baso % (Auto) Immature Gran # (Auto) Neut # (Auto) Lymph # (Auto) Leslie # (Auto) Eos # (Auto) Baso # (Auto) PT INR Sodium 141 Potassium 3.8 Chloride 112 H Carbon Dioxide 24 Anion Gap 5.0 BUN 9 Creatinine 0.72 Est Cr Clr Drug Dosing 80.7 Est GFR ( Amer) 114.8 Est GFR (Non-Af Amer) 99.0 BUN/Creatinine Ratio 12.6 Glucose 92 POC Glucose 99 123 H Calcium 8.4 L Magnesium 2.0 12/03/19 16:47 WBC RBC Hgb Hct MCV MCH MCHC RDW Std Deviation RDW Coeff of Maik Plt Count MPV Immature Gran % (Auto) Neut % (Auto) Lymph % (Auto) Leslie % (Auto) Eos % (Auto) Baso % (Auto) Immature Gran # (Auto) Neut # (Auto) Lymph # (Auto) Leslie # (Auto) Eos # (Auto) Baso # (Auto) PT INR Sodium Potassium Chloride Carbon Dioxide Anion Gap BUN Creatinine Est Cr Clr Drug Dosing Est GFR ( Amer) Est GFR (Non-Af Amer) BUN/Creatinine Ratio Glucose POC Glucose 116 H Calcium Magnesium
[2019-12-03] MEDS: PRAZOSIN HCL 1 MG CAP PO SCH (20:29)
[2019-12-03] MEDS: CLOPIDOGREL BISULFATE 75 MG TAB PO SCH (20:29)
[2019-12-03] MEDS: METOPROLOL TARTRATE 25 MG TAB PO SCH (20:30)
[2019-12-03] MEDS ORDERED: MoRPHine SULFATE 4 MG/ML 1 ML CARP\\VIAL IV PRN (20:52)
[2019-12-03] MEDS ORDERED: KETOROLAC TROMETHAMINE 15 MG/ML VIAL IV STA (20:56)
[2019-12-04] MEDS: OXYCODONE HCL IR 5 MG TAB (IMMEDIATE RELEASE) PO PRN ×2 (03:03→15:04)
[2019-12-04] MEDS: ACETAMINOPHEN 325 MG TAB PO SCH ×4 (03:06→20:24)
[2019-12-04] MEDS: PIPERACILLIN/TAZOBACTAM 3.375 GM in DEXTROSE 5% 100 ML IV SCH ×3 (05:38→22:36)
[2019-12-04] MEDS: D5NSS + 20MEQ KCL 20 MEQ/1,000 ML BAG IV SCH ×2 (05:38→15:44)
[2019-12-04 05:42] LABS: Hematocrit (blood only) 31.3 % (37-47); Hemoglobin 9.8 g/dL (12.0-16.0); Mean Corpuscular Hemoglobin 27.3 pg (25-34); Mean Corpuscular Hgb Conc 31.3 g/dL (32-36); Mean Corpuscular Volume 87.2 fL (80-100); Mean Platelet Volume 8.7 fL (7.4-10.4); Platelet Count 311 K/uL (130-400); RDW Coefficient of Variation 14.3 % (11.5-14.5); RDW Standard Deviation 45.6 fL (36.4-46.3); Red Blood Count 3.59 M/uL (4.2-5.4); White Blood Count 8.23 K/uL (4.8-10.8)
[2019-12-04] MEDS ORDERED: CEFAZOLIN 1000MG 1,000 MG/7.5 ML SYR IV SCH (06:00)
[2019-12-04 06:02] LABS: Basophils # (auto) 0.02 K/uL (0-0.2); Basophils % (auto) 0.2 %; Eosinophils # (auto) 0.08 K/uL (0-0.5); Immature Granulocytes # (auto) 0.01 K/uL (0.00-0.02); Immature Granulocytes % (auto) 0.1 %; Lymphocytes % (auto) 52.2 %; Monocytes # (auto) 0.36 K/uL (0.11-0.59); Monocytes % (auto) 4.4 %; Neutrophils # (auto) 3.46 K/uL (1.4-6.5); Neutrophils % (auto) 42.1 %; RBC Morphology Unremarkable
[2019-12-04 06:24] LABS: BUN Creatinine Ratio 12.6 (10-20); Calcium 8.5 mg/dl (8.5-10.1); Creatinine Clr Calc Pharmacy 70.9 ml/min; Est GFR (African American) 98.1; Est GFR (Non-African American) 84.6; Potassium 4.6 mmol/L (3.5-5.1)
--- NOTE | 2019-12-04 07:40 | History & Physical Bridge Note ---
Date of Service December 04, 2019 History & Physical Bridge Note Patient for arteriography with possible intervention today. I have discussed the risks options and benefits of the procedure with the patient. The patient understands the risks options and benefits and agrees to the procedure. I have examined the patient, reviewed the History & Physical and in the interval since the performance of the History & Physical I have noted the following changes of clinical significance: no changes noted
[2019-12-04] MEDS: INSULIN ASPART 100 UNITS/ML 3 ML PEN SC SCH ×4 (08:53→20:23)
--- NOTE | 2019-12-04 09:19 | Infectious Disease Progress Nt ---
Date of Service December 04, 2019 Assessment & Plan (1) Infection of below knee amputation stump: agree with current abx, follow cultures. Await surgical findings. duration of abx will depend on extent of surgery. will follow and adust abx based on culture results. If no gpc tomorrow, will stop dapto. (2) Necrosis of amputation stump of left lower extremity: Admission and Anticipated Discharge Date Admission Date: November 30, 2019 Subjective for vascular intervention today. wound culture growing pseudomonas species. blood cultures negative to date. remains on broad spectum abx, tolerating well. wbc 8, creat 0.8. Results & Data ([facility]) Vital Signs (Past 12 Hours) Vital Signs Temp Pulse Pulse Resp BP Pulse Ox 12/04/19 07:38 36.4 C L 67 18 97/63 L 96 12/04/19 03:32 36.5 C 69 18 94/67 L 96 12/04/19 02:00 71 12/03/19 23:57 36.6 C 67 17 77/56 L 96 Laboratory Results Microbiology 12/01/19 00:00 Leg,Left Gram Stain - Final 12/01/19 00:00 Leg,Left Wound Culture - Final Pseudom fluoresc/putida 11/30/19 16:22 Blood Aerobic Blood Culture - Preliminary No growth in Aerobic bottle after 48 hours. 11/30/19 16:22 Blood Anaerobic Blood Culture - Preliminary No growth in Anaerobic bottle after 48 hours. 11/30/19 16:04 Blood Aerobic Blood Culture - Preliminary No growth in Aerobic bottle after 48 hours. 11/30/19 16:04 Blood Anaerobic Blood Culture - Preliminary No growth in Anaerobic bottle after 48 hours. PG Care Time/CCT Total # of Minutes Spent Total Time Spent with Patient: Total time spent is greater than 50% in coordination of care (as documented) at patient's floor/unit and/or counseling patient: Coding Level of Care Code 71401 Subseq Hosp Care Lvl 1 Diagnoses Infection of below knee amputation stump T87.40 Necrosis of amputation stump of left lower extremity T87.54
[2019-12-04] MEDS ORDERED: HYDROCORTISONE SOD 100 MG in SYRINGE 0 ML IV SCH (09:30)
--- NOTE | 2019-12-04 09:50 | Cardiology Progress Note ---
Date of Service December 04, 2019 Assessment & Plan (1) PAT (paroxysmal atrial tachycardia): Patient with 9 beat run of tachycardia asymptomatic 12/03/2019. Rhythm began as wide and narrowed consistent with aberrant conduction, atrial tachycardia We will initiate empiric therapy with low-dose beta-liss continue antihypertensive regimen minimize QT prolonging drugs Overall pressing issue is nonhealing BKA stump and vascular disease. Would proceed as planned with vascular evaluation and therapy. Maintain telemetry No further arrhythmias overnight on low-dose beta-liss. Blood pressures trending somewhat lower will hold prazosin. We will continue to follow patient as clinical course progresses (2) Abnormal EKG: EKG and evaluation of arrhythmia's morning demonstrates T wave in anterior leads. Patient high risk for underlying coronary disease but no signs or symptoms of past or current ischemia with preserved LV systolic function. Beta-liss added to regimen. Patient already on BRAIN inhibitor and statin and antiplatelet therapy prior to admission. Lisinopril currently on hold (3) Infection of below knee amputation stump: As above current pressing and supersedes any additional cardiac evaluation in asymptomatic patient (4) PVD (peripheral vascular disease): Continue antiplatelet therapy and medications as noted. Patient n.p.o. for procedure in a.m. Tobacco cessation mandated Resume rosuvastatin once off daptomycin (5) Aortic valve cusp abnormality: Echocardiogram demonstrates focal calcification on the left coronary cusp. Given underlying infectious process vegetation not completely excluded. Patient's blood cultures have been negative on multiple testing however patient on antibiotic therapies prior to evaluation. Aortic valve is competent without stenosis or insufficiency or abscess. Would recommend serial echocardiograms and follow-up Subjective Patient seen, examined, chart medications and telemetry reviewed. Leg uncomfortable overnight but otherwise no complaints. No chest pains, shortness of breath, dizziness, lightheadedness. Blood pressures trending towards low. Anticipates procedure this morning. Telemetry reveals no arrhythmias, tachycardia or bradycardia. Physical Exam Constitutional: + obese; no acute distress Eyes: PERRL, conjunctivae normal, anicteric sclerae ENMT: external ear and nose normal, oropharynx normal Neck: + thick neck Respiratory: Auscultation: + diminished lung sounds (Clear to auscultation) Cardiovascular: Heart Sounds: normal S1, normal S2 and + murmur (Grade 1/6 systolic, no diastolic); no gallop Vessels: no JVD and no carotid bruit Gastrointestinal (Abdomen): normal bowel sounds, soft, nontender, no hepatosplenomegaly Percussion/Palpation: + hepatosplenomegaly Neurologic: PERRL, EOMI, accommodation nl, no face palsy, no dysarthria Psychiatric: A+Ox3, euthymic affect Results & Data Vital Signs (Past 12 Hours) Vital Signs Temp Pulse Pulse Resp BP Pulse Ox 12/04/19 07:38 36.4 C L 67 18 97/63 L 96 12/04/19 03:32 36.5 C 69 18 94/67 L 96 12/04/19 02:00 71 12/03/19 23:57 36.6 C 67 17 77/56 L 96 Laboratory Results Laboratory Results - last 24 hr 12/03/19 12/03/19 12/03/19 11:46 16:47 19:58 WBC RBC Hgb Hct MCV MCH MCHC RDW Std Deviation RDW Coeff of Maik Plt Count MPV Immature Gran % (Auto) Neut % (Auto) Lymph % (Auto) [place] % (Auto) Eos % (Auto) Baso % (Auto) Immature Gran # (Auto) Neut # (Auto) Lymph # (Auto) [place] # (Auto) Eos # (Auto) Baso # (Auto) RBC Morphology Sodium Potassium Chloride Carbon Dioxide Anion Gap BUN Creatinine Est Cr Clr Drug Dosing Est GFR ( Amer) Est GFR (Non-Af Amer) BUN/Creatinine Ratio Glucose POC Glucose 123 H 116 H 132 H Calcium 12/04/19 12/04/19 12/04/19 05:25 05:25 07:42 WBC 8.23 RBC 3.59 L Hgb 9.8 L Hct 31.3 L MCV 87.2 MCH 27.3 MCHC 31.3 L RDW Std Deviation 45.6 RDW Coeff of Maik 14.3 Plt Count 311 MPV 8.7 Immature Gran % (Auto) 0.1 Neut % (Auto) 42.1 Lymph % (Auto) 52.2 [place] % (Auto) 4.4 Eos % (Auto) 1.0 Baso % (Auto) 0.2 Immature Gran # (Auto) 0.01 Neut # (Auto) 3.46 Lymph # (Auto) 4.30 H [place] # (Auto) 0.36 Eos # (Auto) 0.08 Baso # (Auto) 0.02 RBC Morphology Unremarkable Sodium 140 Potassium 4.6 D Chloride 112 H Carbon Dioxide 27 Anion Gap 1.0 L BUN 10 Creatinine 0.82 Est Cr Clr Drug Dosing 70.9 Est GFR ( Amer) 98.1 Est GFR (Non-Af Amer) 84.6 BUN/Creatinine Ratio 12.6 Glucose 102 H POC Glucose 115 H Calcium 8.5
[2019-12-04] MEDS ORDERED: HYDROCORTISONE SOD SUCCINATE 100 MG/2 ML VIAL ONE (09:57)
--- NOTE | 2019-12-04 10:45 | Communication Note ---
Date of Service: December 04, 2019 Pt undergoing arterial stenting today with Dr De. Plan for I&D LLE stump vs. revision LLE BKA stump vs. AKA. Dr Morton to discuss with patient later this week.
--- NOTE | 2019-12-04 10:57 | Pre Anesthesia Assessment ---
Date of Service December 04, 2019 Pre Sedation Assessment Vital Signs Temp Pulse Pulse Resp BP BP Pulse Ox 12/04/19 10:02 36.4 C L 90 20 122/79 97 12/04/19 08:00 65 12/04/19 07:38 36.4 C L 67 18 97/63 L 96 12/04/19 03:32 36.5 C 69 18 94/67 L 96 12/04/19 02:00 71 12/03/19 23:57 36.6 C 67 17 77/56 L 96 12/03/19 19:30 36.4 C L 92 H 18 115/75 96 12/03/19 18:18 83 12/03/19 16:00 36.5 C 85 18 137/81 97 Cardiovascular RRR, no murmur, no edema Respiratory normal respiratory effort, lungs clear to auscultation Pre-Sedation Airway Assessment Smoking Status: Light tobacco smoker Hx Sleep Apnea: No Short, Thick Neck: No Thyromental Distance: > or= 3.5 Finger Breadths Oral Cavity: + WNL Mallampati Class: II ASA: ASA3 NPO Status Date of Last Intake of Fluids: 12/03/19 Time of Last Intake of Fluids: 21:00 Date of Last Intake of Solid Food: 12/03/19 Time of Last Intake of Solid Foods: 21:00 Procedure Planning Contraindications for Sedation: none Current Medications Reviewed: Yes Notes The planned sedation has been discussed with the patient. Informed Consent was obtained. I have identified the patient, determined the appropriateness of sedation and have assessed the patient immediately prior to the procedure. All medicine(s) and interventions are by my order.
[2019-12-04] MEDS ORDERED: MIDAZOLAM HCL 1 MG/ML 2ML VIAL ONE ×2 (11:04→11:41)
[2019-12-04] MEDS ORDERED: fentaNYL citrate 100 MCG/2 ML VIAL ONE ×2 (11:04→11:41)
[2019-12-04] MEDS ORDERED: HEPARIN SOD (PORCINE) 1000 UNIT/ML 10 ML VIAL ONE (11:13)
[2019-12-04] MEDS ORDERED: VISIPAQUE IV PRN (12:04)
[2019-12-04] MEDS ORDERED: ARISTA ABSORBABLE HEMOSTAT 3GM TOP ONE (12:04)
[2019-12-04] MEDS ORDERED: LIDOCAINE HCL 1% 20 ML VIAL INFIL ONE (12:05)
--- NOTE | 2019-12-04 12:08 | Procedure Note ---
Angiogram Post Procedure Fluoroscopy Time (minutes): 4.1 Radiation (mGy): 207 Contrast: 30 Post Operative Report Pre & Post Diagnosis Operation Date: 12/04/19 10:20 Pre-Op Diagnosis: Bilateral Iliac Artery Stenosis, Gangrene of Left Stump Post-Op Diagnosis: Bilateral Iliac Artery Stenosis, Gangrene of Left Stump I identified the patient and participated in the time-out.: Yes Procedure Operation Date: 12/04/19 10:20 Actual Procedures p Ultrasound Localization of Bilateral Femoral Arteries, Bilateral Common Iliac Artery Stenting, Bilateral External Iliac Artery Stenting, Bilateral cannulation of the aorta, Moderate Sedation [id number], (Bilateral) - Brian De MD Surgeon Brian De MD Fermentation Engineer None Estimated Blood Loss 30 Findings Consistent with Post-Op Diagnosis Specimens None Anesthesia Type RN Sedation Complications none Disposition Accompanied Patient To Recovery: No Disposition: Recovery Room Indications This is a 49-year-old female who has bilateral below-knee amputations is developed gangrene of the left stump. CT angiogram showed a tight common iliac artery stenosis at the proximal portion of her iliac stent as well as a tight stenosis just beyond the stent in the external iliac proximally. Right side also shows moderate stenosis in the midportion of the stent. Stenting of the iliacs was recommended. I have discussed the risks options and benefits of the procedure with the patient. The patient understands the risks options and benefits and agrees to the procedure. I have discussed the risks options and benefits of the procedure with the patient. The patient understands the risks options and benefits and agrees to the procedure. Description of Procedure The patient was taken the angiogram suite placed in the supine position. After both groins were prepped and draped in a sterile manner the patient was i dentified and a timeout was performed. Ultrasound was then used to identify the right common femoral artery. It did have flow and was patent. With ultrasound guidance the right common femoral arteries punctured with a entrance needle and a 035 wire followed by a 5 Turkmen sheath was inserted. 035 Glidewire was inserted through the sheath. With the use of a angled glide catheter the wire was passed up into the intra-abdominal aorta below the renals. The catheter was removed. Pigtail was then inserted and arteriogram was performed. This showed moderate narrowing in the distal aorta. There was a significant narrowing in the proximal stent on the left side at the origin of the common iliac artery as well as a severe stenosis just beyond the stent and the external iliac artery. The left internal iliac artery had a preocclusive 99% narrowing and mostly filled with collaterals. On the right side there was a moderate narrowing in the midportion of the stent. Internal iliac on the right side is appears to be chronically occluded. At this point we decided to try to raise the bifurcation higher and stent both external iliacs. Using ultrasound the left common femoral artery was identified. It was patent but small in caliber. Using the ultrasound this vessel was punctured. A wire was inserted followed by a 5 Turkmen sheath. An 035 Glidewire was then inserted with the aid of a angled glide catheter and passed up through the old stents into the infrarenal abdominal aorta. The wire was removed. Injection to the 5 Turkmen catheter showed it to be intraluminal within the aorta. Stiff Glidewire was then passed up the left side. A regular Glidewire was passed up to the right and the pigtail removed. Both 5 Turkmen sheath were exchanged to 8 Turkmen sheaths. Patient was given 3000 of IV heparin at this time. We then inserted a 8 x 59 VBX stent up the left iliac system. We then inserted a by 39 up the right. These were simultaneously expanded releasing the aortic bifurcation approximately a centimeter and 1/2 to 2 cm above the old stents. We then inserted an 8 x 29 on the right side and restented the midportion of the external iliac stent on the right side. After this was done a hand-injection was performed which showed the right side to be widely patent. Left side was widely patent down to the distal end of the old stent which had a severe stenosis. We then passed a 6 x 39 Omnilink up the left side and stented the area. This however did cover the internal iliac which had a greater 99% stenosis at its origin. The common iliac and external iliac artery were now widely patent. That point the sheaths were pulled. There was palpable pulses in both groins. Pressure was applied and adequate hemostasis was obtained. Pressure dressings were applied to both groins. The patient left the operation room in satisfactory condition and tolerated the procedure well. All needle and sponge counts were correct at the end of the procedure. I attest to the content of the Intraoperative Record and any orders documented therein. Any exceptions are noted below.
--- NOTE | 2019-12-04 12:14 | Post Anesthesia Assessment ---
Date of Service December 04, 2019 Post Sedation Assessment Vital Signs Temp Pulse Pulse Resp BP BP Pulse Ox 12/04/19 12:11 82 14 119/92 95 12/04/19 12:06 78 14 159/91 H 95 12/04/19 12:01 87 14 139/99 94 12/04/19 11:56 82 14 164/123 H 98 12/04/19 11:51 81 14 158/108 H 96 12/04/19 11:46 98 H 14 178/84 H 96 12/04/19 11:41 78 14 174/78 H 97 12/04/19 11:36 74 14 167/78 H 98 12/04/19 11:31 84 14 128/79 99 12/04/19 11:26 73 14 116/77 99 12/04/19 11:21 74 14 128/73 99 12/04/19 11:16 74 18 134/64 100 12/04/19 11:15 72 18 125/72 100 12/04/19 10:02 36.4 C L 90 20 122/79 97 12/04/19 08:00 65 12/04/19 07:38 36.4 C L 67 18 97/63 L 96 12/04/19 03:32 36.5 C 69 18 94/67 L 96 12/04/19 02:00 71 12/03/19 23:57 36.6 C 67 17 77/56 L 96 12/03/19 19:30 36.4 C L 92 H 18 115/75 96 12/03/19 18:18 83 12/03/19 16:00 36.5 C 85 18 137/81 97 Recovery Score Activity: Moves 4 extremities Respiration: Deep Breath/Cough Circulation: +/-20% PreAnes Value Consciousness: Fully Awake Oxygen Saturation: > 92% On Room Air Post Anesthesia Score: 10 Discharge Sedation Level of Care: Fast Track Phase II Post Sedation Plan On clinical assessment, the patient appears to have tolerated the sedation without complications. Patient is recovering as anticipated. Patient will continue to be monitored by nursing and may be discharged when sedation discharge criteria are met per below protocol. Upon Completions of procedure up to 15 minutes continue every 5 minute vital signs and the P.A.R. score; then discharge to a Phase I or Fast Track to Phase II per the following guidelines: * Discharge Patient to appropriate Phase II area if PAR is 8 or greater or return to pre- procedure baseline. The post - procedure orders will be as directed. * If PAR score is less than 8 or not return to pre-procedure baseline then patient will follow Phase I monitoring till PAR is reached for Phase II. The Phase I may be done in procedure room or may call to secure a Phase I area. * If naloxone or flumazenil are used for reversal, hold in Phase I for continued monitoring from when last reversal dose was given for a minimum of 60 minutes or longer pending the nurse and/or physician discretion of patient condition before discharge to Phase II. Please call the Sedation Physician to re-evaluate and complete post-note for discharge to Phase II area. Do NOT discharge from procedure sedation or Phase 1 until post- sedation evaluation note is complete by procedure /sedation MD Sedation Discharge Instructions to be given to the patient at discharge to home.
--- NOTE | 2019-12-04 12:15 | Communication Note ---
Date of Service: December 04, 2019 Left lower extremity bka stump revascularized. Ortho can go ahead with their surgical plans.
[2019-12-04] MEDS: METOPROLOL TARTRATE 25 MG TAB PO SCH ×2 (13:21→20:22)
[2019-12-04] MEDS: DOCUSATE SODIUM/SENNA 50/8.6MG TAB PO SCH (13:22)
[2019-12-04] MEDS: LACTOBACILLUS ACIDOPHILUS (FLORANEX) TAB PO SCH ×3 (13:42→20:21)
[2019-12-04] MEDS: GABAPENTIN 600 MG TAB PO SCH ×3 (13:43→20:22)
[2019-12-04] MEDS: FOLIC ACID 1 MG TAB PO SCH (13:43)
[2019-12-04] MEDS: DULOXETINE HCL 60 MG CAP PO SCH (13:47)
[2019-12-04] MEDS: predniSONE 5 MG TAB PO SCH (13:47)
--- NOTE | 2019-12-04 13:58 | Electrocardiogram Report ---
Test Reason : Blood Pressure : / mmHG Vent. Rate : 069 BPM Atrial Rate : 069 BPM P-R Int : 122 ms QRS Dur : 082 ms QT Int : 392 ms P-R-T Axes : 047 070 102 degrees QTc Int : 420 ms Normal sinus rhythm Abnormal ECG When compared with ECG of 15-NOV-2019 22:15, ST now depressed in Anterior leads T wave inversion now evident in Anterolateral leads Confirmed by Ronaldo Bowers ([id number]) on 12/04/2019 1:58:34 PM Referred By: REFERRED SELF Confirmed By:Ronaldo Bowers
[2019-12-04] MEDS ORDERED: HYDROmorphone INJ 1 MG/ML SYRINGE IV ONE (15:45)
--- NOTE | 2019-12-04 16:49 | Hospitalist Progress Note ---
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 POSSIBLE SEPSIS SECONDARY TO LEFT BKA STUMP NONHEALING INFECTED WOUND, CELLULITIS --Was discharged from [facility] on doxycycline and cefdinir last November 21, 2019 but patient's left BKA stump wound and cellulitis continue to progress --Patient presents with heart rate of 106, leukocytosis of 13,900, and infected left BKA wound Lactic acid normalized from 2.6-1.7 within 2 hours in the emergency room -- CT of the left lower extremity obtained - significant for 2.5 cm complex fluid collection inferior to the oper. site/ may be abscess -on daptomycin and Zosyn IV, - -- vasculary surgery consulted - appreciate input /S/p bilateral illiac artery sent placement today - appreciate input from Ortho , plan for I&D of left BKA infected stump on Monday12/06/19 Abnormal heart rhythm -episode of PAT ( paroxysmal atrial tachycardia ) noted , pt remains asymptomatic -appreciate input form Cardiology -started on [employer] HISTORY OF PERIPHERAL ARTERY DISEASE, AORTOILIAC OCCLUSION STATUS POST BILATERAL BKA --Continue Plavix, hold rosuvastatin as patient is on daptomycin ECHO FINDING OF AORTIC VALVE ABNORMALITY : Echocardiogram : finding of focal calcification on the left coronary cusp/aortic valve competent without stenosis or insufficiency of abscess Blood cultures been negative need cardiology follow up and repeat ECHO survillance in future DIABETES TYPE 2 --[place] to be steroid induced --Hold metformin, insulin sliding scale ordered HYPERTENSION - BP remains in low 100's Lisinopril kept on hold DVT prophylaxis --ordered for SC heparin CODE STATUS --Full code Admission and Anticipated Discharge Date Admission Date: November 30, 2019 Subjective S/P illiac artery stent placement today complains of severe pain on rt groin catheter insertion site has pressure bandage no active bleeding or swelling noted pt remains afebrile no complain of SOB , no chest pain Review of Systems Musculoskeletal: pain at rt groin s/p vascular procedure at catheter insertion site Physical Exam Constitutional: WD/WN, vitals as above + ill appearing Eyes: PERRL, conjunctivae normal, anicteric sclerae ENMT: external ear and nose normal, oropharynx normal Neck: trachea midline, no thyromegaly Respiratory: normal respiratory effort, lungs clear to auscultation Cardiovascular: Rate/Rhythm: regular rate and regular rhythm Gastrointestinal (Abdomen): Inspection/Auscultation: normal bowel sounds Percussion/Palpation: abdomen soft; abdomen nontender Musculoskeletal: bilateral BKA infected left BKA stump , bandage present Neurologic: PERRL, EOMI, accommodation nl, no face palsy, no dysarthria Psychiatric: A+Ox3, euthymic affect Results & Data Results & Data ([facility]) Vital Signs (Past 12 Hours) Vital Signs Temp Pulse Pulse Resp BP BP Pulse Ox 12/04/19 16:17 36.2 C L 91 H 18 117/73 95 12/04/19 15:09 74 12/04/19 15:04 35.9 C L 82 18 139/83 98 12/04/19 14:08 36.4 C L 78 18 131/70 94 12/04/19 13:45 76 18 137/81 12/04/19 13:16 36.8 C 94 H 18 151/86 H 96 12/04/19 13:04 36.4 C L 80 18 129/71 96 12/04/19 12:46 36.4 C L 72 18 132/65 96 12/04/19 12:11 82 14 119/92 95 12/04/19 12:06 78 14 159/91 H 95 12/04/19 12:01 87 14 139/99 94 12/04/19 11:56 82 14 164/123 H 98 12/04/19 11:51 81 14 158/108 H 96 12/04/19 11:46 98 H 14 178/84 H 96 12/04/19 11:41 78 14 174/78 H 97 12/04/19 11:36 74 14 167/78 H 98 12/04/19 11:31 84 14 128/79 99 12/04/19 11:26 73 14 116/77 99 12/04/19 11:21 74 14 128/73 99 12/04/19 11:16 74 18 134/64 100 12/04/19 11:15 72 18 125/72 100 12/04/19 10:02 36.4 C L 90 20 122/79 97 12/04/19 08:00 65 12/04/19 07:38 36.4 C L 67 18 97/63 L 96
[2019-12-04] MEDS: CLOPIDOGREL BISULFATE 75 MG TAB PO SCH (20:24)
[2019-12-04] MEDS: DAPTOmycin 300 MG in SYRINGE 0 ML IV SCH (23:27)
[2019-12-05] MEDS: OXYCODONE HCL IR 5 MG TAB (IMMEDIATE RELEASE) PO PRN ×3 (02:58→23:29)
[2019-12-05] MEDS: ACETAMINOPHEN 325 MG TAB PO SCH ×4 (02:58→21:24)
[2019-12-05] MEDS: PIPERACILLIN/TAZOBACTAM 3.375 GM in DEXTROSE 5% 100 ML IV SCH ×3 (05:51→21:20)
[2019-12-05] MEDS ORDERED: SODIUM CHLORIDE 0.9% 500 ML IV SCH (06:15)
[2019-12-05 06:26] LABS: Basophils # (auto) 0.04 K/uL (0-0.2); Basophils % (auto) 0.3 %; Eosinophils # (auto) 0.04 K/uL (0-0.5); Eosinophils % (auto) 0.3 %; Hematocrit (blood only) 26.9 % (37-47); Hemoglobin 8.3 g/dL (12.0-16.0); Immature Granulocytes # (auto) 0.05 K/uL (0.00-0.02); Immature Granulocytes % (auto) 0.3 %; Lymphocytes # (auto) 4.55 K/uL (1.2-3.4); Lymphocytes % (auto) 31.8 %; Mean Corpuscular Hgb Conc 30.9 g/dL (32-36); Mean Corpuscular Volume 87.6 fL (80-100); Mean Platelet Volume 9.5 fL (7.4-10.4); Monocytes # (auto) 0.95 K/uL (0.11-0.59); Monocytes % (auto) 6.6 %; Neutrophils # (auto) 8.67 K/uL (1.4-6.5); Neutrophils % (auto) 60.7 %; Platelet Count 343 K/uL (130-400); RDW Coefficient of Variation 14.6 % (11.5-14.5); RDW Standard Deviation 46.5 fL (36.4-46.3); Red Blood Count 3.07 M/uL (4.2-5.4)
[2019-12-05 07:10] LABS: BUN Creatinine Ratio 14.5 (10-20); Calcium 8.7 mg/dl (8.5-10.1); Creatinine Clr Calc Pharmacy 60.9 ml/min; Est GFR (African American) 79.1; Est GFR (Non-African American) 68.2
[2019-12-05] MEDS: DOCUSATE SODIUM/SENNA 50/8.6MG TAB PO SCH (07:59)
[2019-12-05] MEDS: LACTOBACILLUS ACIDOPHILUS (FLORANEX) TAB PO SCH ×3 (07:59→21:21)
[2019-12-05] MEDS: GABAPENTIN 600 MG TAB PO SCH ×3 (07:59→21:22)
[2019-12-05] MEDS: METOPROLOL TARTRATE 25 MG TAB PO SCH (07:59)
[2019-12-05] MEDS: FOLIC ACID 1 MG TAB PO SCH (07:59)
[2019-12-05] MEDS: DULOXETINE HCL 60 MG CAP PO SCH (08:00)
[2019-12-05] MEDS: predniSONE 5 MG TAB PO SCH (08:00)
[2019-12-05] MEDS: INSULIN ASPART 100 UNITS/ML 3 ML PEN SC SCH ×4 (08:03→21:22)
--- NOTE | 2019-12-05 08:47 | Hospitalist Progress Note ---
Date of Service December 05, 2019 Assessment & Plan Admission and Anticipated Discharge Date Admission Date: November 30, 2019 Subjective ATTENDING ADDENDUM: left BKA stump : culture + pseudomonas on Zosyn MRSA screen negative Daptomycin D/jordan statin resumed may need further adjustment of Abx once wound I&D culture is available Ruby Anne MD Results & Data Results & Data ([facility]) Vital Signs (Past 12 Hours) Vital Signs Temp Pulse Pulse Resp BP Pulse Ox 12/05/19 07:45 36.4 C L 71 20 95/45 L 94 12/05/19 07:33 67 12/05/19 04:37 36.4 C L 71 20 90/60 L 95 12/05/19 00:17 76 12/04/19 22:37 36.4 C L 82 17 116/61 94
--- NOTE | 2019-12-05 08:59 | Orthopedic Progress Note ---
Date of Service December 05, 2019 Assessment & Plan (1) Necrosis of amputation stump of left lower extremity: Plan for OR tomorrow with Dr. Morton for I/D left BKA stump vs revision BKA stump. Admission and Anticipated Discharge Date Admission Date: November 30, 2019 Subjective Pt sitting up in bed. Just finishing breakfast. No complaints this AM. States that her stenting procedure went fairly well yesterday. Physical Exam Physical Exam: Optifoam dressing taken down. Gangrene of left BKA stump worsening since pictures taken a few days ago. No odor noted at this time. Erythema noted around the wound edges. Moderate gangrene noted across the stump 2 to 3 cm in height and around 6cm in width. Dressing placed back on wound. Results & Data ([facility]) Vital Signs (Past 12 Hours) Vital Signs Temp Pulse Pulse Resp BP Pulse Ox 12/05/19 07:45 36.4 C L 71 20 95/45 L 94 12/05/19 07:33 67 12/05/19 04:37 36.4 C L 71 20 90/60 L 95 12/05/19 00:17 76 12/04/19 22:37 36.4 C L 82 17 116/61 94
--- NOTE | 2019-12-05 09:21 | Infectious Disease Progress Nt ---
Date of Service December 05, 2019 Assessment & Plan (1) Infection of below knee amputation stump: agree with current abx, follow cultures. Await surgical findings. duration of abx will depend on extent of surgery. will follow and adust abx based on culture results, likely d/c on po levaquin (2) Necrosis of amputation stump of left lower extremity: Admission and Anticipated Discharge Date Admission Date: November 30, 2019 Subjective pt s/p iliac stenting. tolerated well. remains on zosyn, wound culture growing pseudomonas species. blood cultures negative. afebrile. Results & Data ([facility]) Vital Signs (Past 12 Hours) Vital Signs Temp Pulse Pulse Resp BP Pulse Ox 12/05/19 07:45 36.4 C L 71 20 95/45 L 94 12/05/19 07:33 67 12/05/19 04:37 36.4 C L 71 20 90/60 L 95 12/05/19 00:17 76 12/04/19 22:37 36.4 C L 82 17 116/61 94 Laboratory Results Microbiology 12/01/19 00:00 Leg,Left Gram Stain - Final 12/01/19 00:00 Leg,Left Wound Culture - Final Pseudom fluoresc/putida 11/30/19 16:22 Blood Aerobic Blood Culture - Preliminary No growth in Aerobic bottle after 48 hours. 11/30/19 16:22 Blood Anaerobic Blood Culture - Preliminary No growth in Anaerobic bottle after 48 hours. 11/30/19 16:04 Blood Aerobic Blood Culture - Preliminary No growth in Aerobic bottle after 48 hours. 11/30/19 16:04 Blood Anaerobic Blood Culture - Preliminary No growth in Anaerobic bottle after 48 hours. PG Care Time/CCT Total # of Minutes Spent Total Time Spent with Patient: Total time spent is greater than 50% in coordination of care (as documented) at patient's floor/unit and/or counseling patient: Coding Level of Care Code 59077 Subseq Hosp Care Lvl 1 Diagnoses Infection of below knee amputation stump T87.40 Necrosis of amputation stump of left lower extremity T87.54
[2019-12-05] MEDS: ROSUVASTATIN CALCIUM 20 MG TAB PO SCH (09:47)
--- NOTE | 2019-12-05 11:55 | Surgery Progress Note ---
Date of Service December 05, 2019 Assessment & Plan (1) Necrosis of amputation stump of left lower extremity: She is doing well post intervention. We will see her again in the office 2 months after discharge for follow-up of the iliac stenting. She does need to stay on her Plavix for the restenting of her iliacs. Thank you very much for letting us participate in the care of this patient. Subjective Patient is doing well. She has no complaints of pain in her stump. She claims it is markedly improved from pre-angiogram and intervention. Physical Exam Cardiovascular: Bilateral groin dressings are intact. The stumps are pink except for the necrotic area in the left below-knee amputation site. Results & Data Vital Signs (Past 12 Hours) Vital Signs Temp Pulse Pulse Resp BP Pulse Ox 12/05/19 07:45 36.4 C L 71 20 95/45 L 94 12/05/19 07:33 67 12/05/19 04:37 36.4 C L 71 20 90/60 L 95 12/05/19 00:17 76
--- NOTE | 2019-12-05 12:08 | Anesthesiology Consultation ---
Date of Service December 05, 2019 Assessment & Plan (1) Encounter for pre-operative examination: Per Cardiology Consult 12/04/19 = "[re: atrial tachycardia] We will initiate empiric therapy with low-dose beta-liss continue antihypertensive regimen minimize QT prolonging drugs Overall pressing issue is nonhealing BKA stump and vascular disease. Would proceed as planned with vascular evaluation and therapy. Maintain telemetry. As above current pressing and supersedes any additional cardiac evaluation in asymptomatic patient." Chart Review Chart Review: Patient NOT seen in Pre Admission Testing and entry level administrative assistant initiated History Surgery Operation Date: 12/04/19 10:20 Proposed Procedures p Bilateral Iliac Stenting - Brian De MD Operation Date: 12/06/19 10:00 Proposed Procedures p Left Incision and Drainage of Below Knee Amputation Stump - Vinay Morton DO s Possible Revision Below Knee Amputation Stump - Vinay Morton DO Height/Weight Height: 4 ft 10 in Weight: 76 kg Allergies Allergy/AdvReac Type Severity Reaction Status Date / Time onion Allergy Unknown Verified 12/04/19 10:30 Medications Home Medications Medication Instructions Recorded Confirmed Last Taken adalimumab 40 mg/0.8 mL 40 mg SQ .ON HOLD 03/20/19 11/30/19 Unknown subcutaneous syringe kit clopidogrel 75 mg tablet 75 mg PO QPM 03/20/19 11/30/19 11/15/19 duloxetine 60 mg capsule,delayed 60 mg PO DAILY cap 03/20/19 11/30/19 11/15/19 release folic acid 1 mg tablet 1 mg PO DAILY 03/20/19 11/30/19 11/15/19 hydroxychloroquine 200 mg tablet 300 mg PO DAILY tab 03/20/19 11/30/19 11/15/19 methotrexate sodium (PF) 50 mg 50 mg WK 03/20/19 11/30/19 11/13/19 solution for injection olanzapine 20 mg tablet 20 mg PO HS tab 03/20/19 11/30/19 11/14/19 prazosin 2 mg capsule 2 mg PO QPM 03/20/19 11/30/19 11/14/19 sulfasalazine 500 mg tablet 500 mg PO BID tab 03/20/19 11/30/19 11/15/19 gabapentin 600 mg PO TID 11/15/19 11/30/19 Unknown lisinopril 10 mg PO DAILY 11/15/19 11/30/19 Unknown rosuvastatin 20 mg PO DAILY 11/15/19 11/30/19 11/15/19 prednisone 5 mg PO DAILY 11/16/19 11/30/19 Unknown Lactobacillus acidoph-L.bulgar 1 tab PO TID #30 tab 11/20/19 11/30/19 Unknown [Lactinex] cefdinir 300 mg capsule 300 mg PO BID 9 Days #18 cap 11/27/19 11/30/19 11/30/19 09:00 doxycycline hyclate 100 mg capsule 100 mg PO BID 9 Days #18 cap 11/27/19 11/30/19 11/30/19 09:00 metformin 500 mg tablet 500 mg PO DAILY 11/27/19 11/30/19 Unknown acetaminophen [Tylenol Extra 1,000 mg PO Q6H PRN 11/30/19 11/30/19 Unknown Strength] Active Medications Generic Name Dose Route Start Last Admin Trade Name Freq PRN Reason Stop Dose Admin Acetaminophen 650 mg 12/01/19 21:00 12/05/19 07:58 Tylenol PO 12/31/19 20:59 650 mg Q6H MODESTO Administration Clopidogrel Bisulfate 75 mg 11/30/19 22:55 12/04/19 20:24 Plavix PO 12/30/19 22:54 75 mg QPM MODESTO Administration Duloxetine HCl 60 mg 12/01/19 09:00 12/05/19 08:00 Cymbalta PO 12/31/19 08:59 60 mg DAILY MODESTO Administration Folic Acid 1 mg 12/01/19 09:00 12/05/19 07:59 Folvite PO 12/31/19 08:59 1 mg DAILY MODESTO Administration Gabapentin 600 mg 11/30/19 22:55 12/05/19 07:59 Neurontin PO 12/30/19 22:54 600 mg TID MODESTO Administration Piperacillin Sod/Tazobactam 115 mls @ 28.75 mls/hr 12/01/19 06:00 12/05/19 10:56 Sod 3.375 gm/ Dextrose IV 12/08/19 05:59 Infused Q8H MODESTO Infusion Protocol Insulin Aspart 0 units 12/01/19 21:00 12/05/19 08:03 Novolog Flexpen SC 12/31/19 00:00 Not Given ACHS MODESTO Iodixanol 50 ml 12/04/19 12:04 12/04/19 12:06 Visipaque IV 12/08/19 12:03 50 ml UD PRN Administration Interaction Checking Ioversol 120 ml 12/02/19 10:14 12/02/19 10:14 Optiray 320 125ml IV 12/06/19 10:13 120 ml ONCE PRN Administration Interaction Checking Lactobacillus Acidophilus 4 tab 11/30/19 23:30 12/05/19 07:59 Floranex PO 12/30/19 23:29 4 tab TID MODESTO Administration Metoprolol Tartrate 12.5 mg 12/03/19 21:00 12/05/19 07:59 Lopressor PO 01/02/20 20:59 Not Given BID MODESTO Miscellaneous 1 ea 12/01/19 16:00 12/05/19 08:00 Order Awaiting Action N/A 12/31/19 15:59 Not Given QS MODESTO Olanzapine 20 mg 11/30/19 22:55 12/01/19 00:11 Zyprexa PO 12/30/19 22:54 20 mg HS MODESTO Administration Ondansetron HCl 4 mg 11/30/19 22:55 12/04/19 20:26 Zofran IV 12/30/19 22:54 4 mg Q6H PRN Administration Nausea Oxycodone HCl 5 - 10 mg 12/03/19 20:52 12/05/19 02:58 Roxicodone Immediate Rel PO 12/17/19 20:51 10 mg Q4H PRN Administration Pain Prazosin HCl 2 mg 11/30/19 22:55 12/03/19 20:29 Prazosin Hcl PO 12/30/19 22:54 2 mg QPM MODESTO Administration Prednisone 5 mg 12/01/19 09:00 12/05/19 08:00 Prednisone PO 12/31/19 08:59 5 mg DAILY MODESTO Administration Rosuvastatin Calcium 20 mg 12/05/19 09:00 12/05/19 09:47 Crestor PO 01/04/20 08:59 20 mg DAILY MODESTO Administration Senna/Docusate Sodium 1 tab 12/01/19 09:00 12/05/19 07:59 Senokot S PO 12/31/19 08:59 1 tab QAM MODESTO Administration NPO Date Last Intake of Fluids: 12/03/19 Time Last Intake of Fluids: 21:00 Last Intake of Fluids Comment: sip of water with pill Date Last Intake of Solids: 12/03/19 Time Last Intake of Solids: 16:30 Last Intake of Solids Comment: supper Past Medical History Medical History Acquired absence of left leg below knee (Acute) Acquired absence of right leg below knee (Acute) Chronic hyponatremia Chronic pain syndrome (Acute) Depression with anxiety Diabetes mellitus Inflammatory polyarthropathy (Acute) PVD (peripheral vascular disease) (Acute) Rheumatoid arthritis (Acute) Tobacco use Past Family History Family History Other Cancer Coronary heart disease Hypertension Stroke Past Surgical History Surgical History History of below-knee amputation of both lower extremities Hx of cholecystectomy (Resolved) Social History Smoking Status: Light tobacco smoker tobacco type: cigarettes Smoking cigarettes per day: 5 cigarettes a day Hx Alcohol Use: No Hx Substance Use: No substance use type: does not use Physical Exam Vital Signs Last Vital Signs Temp 36.4 C L 12/05/19 07:45 Pulse 71 12/05/19 07:45 Resp 20 12/05/19 07:45 BP 95/45 L 12/05/19 07:45 Pulse Ox 94 12/05/19 07:45 Testing Laboratory Results 12/05/19 05:41 12/05/19 05:41 PT 10.9 Seconds (9.0-12.0) 12/03/19 06:59 INR 1.0 (0.9-1.1) 12/03/19 06:59 APTT 30.9 Seconds (21.0-31.0) 11/30/19 16:04 12/01/19 00:00 Gram Stain - Final Leg,Left Wound Culture - Final Pseudom fluoresc/putida 11/30/19 16:22 Aerobic Blood Culture - Preliminary Blood No growth in Aerobic bottle after 48 hours. Anaerobic Blood Culture - Preliminary No growth in Anaerobic bottle after 48 hours. 11/30/19 16:04 Aerobic Blood Culture - Preliminary Blood No growth in Aerobic bottle after 48 hours. Anaerobic Blood Culture - Preliminary No growth in Anaerobic bottle after 48 hours. 12/05/19 07:33 POC Glucose 106 H 12/04/19 10:16 POC Ur Test NEG Electrocardiogram Date: 12/03/19 Findings: + NSR @ (69bpm) ST and T wave abnormality, consider anterior ischemia. Compared with EKG of 11/15/19, ST now depressed in anterior leads, TWI now evident in anterolateral leads. Chest X-Ray Date: 11/30/19 Findings: + NAD Echocardiogram Date: 12/03/19 EF: 60-65% LV is normal in size and wall thickness and wall motion. AV trileaflet with mild sclerotic changes. There is focal thickening of the left coronary cusp leaflet with calcification. There is no valve dysfunction or insufficiency. In the setting of infection, vegetation cannot be completely excluded. Serial echos recommended.
--- NOTE | 2019-12-05 13:39 | Cardiology Progress Note ---
Date of Service December 05, 2019 Assessment & Plan (1) PAT (paroxysmal atrial tachycardia): No further arrhythmias would continue low-dose beta-liss (2) Abnormal EKG: EKG and evaluation of arrhythmia's morning demonstrates T wave in anterior leads. Patient high risk for underlying coronary disease but no signs or symptoms of past or current ischemia with preserved LV systolic function. Beta-liss added to regimen. (3) Infection of below knee amputation stump: As above current pressing and supersedes any additional cardiac evaluation in asymptomatic patient. Surgical plans noted (4) PVD (peripheral vascular disease): Continue antiplatelet therapy and medications as noted. Patient n.p.o. for procedure in a.m. Tobacco cessation mandated Resume rosuvastatin once off daptomycin (5) Aortic valve cusp abnormality: Echocardiogram demonstrates focal calcification on the left coronary cusp. Given underlying infectious process vegetation not completely excluded. Patient's blood cultures have been negative on multiple testing however patient on antibiotic therapies prior to evaluation. Aortic valve is competent without stenosis or insufficiency or abscess. Would recommend serial echocardiograms and follow-up Repeat echocardiogram ordered this admission Subjective Patient seen and examined, chart, medications, telemetry reviewed. No significant arrhythmias, no cardiac complaints. Physical Exam Constitutional: + obese; no acute distress Eyes: PERRL, conjunctivae normal, anicteric sclerae ENMT: external ear and nose normal, oropharynx normal Neck: + thick neck Respiratory: Auscultation: + diminished lung sounds (Clear to auscultation) Cardiovascular: Heart Sounds: normal S1, normal S2 and + murmur (Grade 1/6 systolic, no diastolic); no gallop Vessels: no JVD and no carotid bruit Gastrointestinal (Abdomen): normal bowel sounds, soft, nontender, no hepatosplenomegaly Percussion/Palpation: + hepatosplenomegaly Musculoskeletal: Bilateral BKA, bandages in place Neurologic: PERRL, EOMI, accommodation nl, no face palsy, no dysarthria Psychiatric: A+Ox3, euthymic affect Results & Data Vital Signs (Past 12 Hours) Vital Signs Temp Pulse Pulse Resp BP Pulse Ox 12/05/19 07:45 36.4 C L 71 20 95/45 L 94 12/05/19 07:33 67 12/05/19 04:37 36.4 C L 71 20 90/60 L 95
--- NOTE | 2019-12-05 13:52 | Orthopedic Progress Note ---
Date of Service December 05, 2019 Assessment & Plan (1) Necrosis of amputation stump of left lower extremity: Plan for OR tomorrow with Dr. Morton for I/D left BKA stump vs revision BKA stump. All potential risks and benefits elated to the patient's care were considered regarding the current Covid-19 pandemic. The patient's current condition is deemed as urgent and performing surgery at this time will prevent further morbidity and likely worsening of the patient's condition. The patient will be scheduled for surgery as this condition is urgent and indicated. Admission and Anticipated Discharge Date Admission Date: November 30, 2019 Subjective The patient's condition has not changed and is still serious. Vascular surgery input appreciated. All potential risks and benefits related to the patient's care were considered regarding the current Covid-19 pandemic. The patient's current condition is deemed as urgent and performing surgery at this time will prevent further morbidity and likely worsening of the patient's condition. The patient will be scheduled for surgery as this condition is urgent and indicated. Physical Exam Physical Exam: Left BKA stump necrosis with surrounding induration severe and unchanged. Necrotic slough. Erythema. Exudate and transudate present. Results & Data ([facility]) Vital Signs (Past 12 Hours) Vital Signs Temp Pulse Pulse Resp BP Pulse Ox 12/05/19 07:45 36.4 C L 71 20 95/45 L 94 12/05/19 07:33 67 12/05/19 04:37 36.4 C L 71 20 90/60 L 95
[2019-12-05] MEDS ORDERED: SODIUM CHLORIDE 0.9% 250 ML IV PRN (14:57)
[2019-12-05] MEDS ORDERED: SODIUM CHLORIDE 0.9% 1000ML 250 ML IV ONE (15:00)
[2019-12-05] MEDS: HYDROCORTISONE SOD 100 MG in SYRINGE 0 ML IV SCH ×2 (16:19→21:24)
[2019-12-05] MEDS: CLOPIDOGREL BISULFATE 75 MG TAB PO SCH (21:24)
[2019-12-06] MEDS: ACETAMINOPHEN 325 MG TAB PO SCH ×2 (03:20→08:36)
[2019-12-06] MEDS: PIPERACILLIN/TAZOBACTAM 3.375 GM in DEXTROSE 5% 100 ML IV SCH ×3 (05:47→21:55)
[2019-12-06 06:43] LABS: Hematocrit (blood only) 25.6 % (37-47); Hemoglobin 8.3 g/dL (12.0-16.0); Mean Corpuscular Hemoglobin 28.6 pg (25-34); Mean Corpuscular Hgb Conc 32.4 g/dL (32-36); Mean Corpuscular Volume 88.3 fL (80-100); Mean Platelet Volume 9.4 fL (7.4-10.4); Nucleated RBC # (auto) 0.06 K/uL (0-0); Nucleated RBC % (auto) 0.7 %; Platelet Count 252 K/uL (130-400); RDW Coefficient of Variation 14.6 % (11.5-14.5); RDW Standard Deviation 46.5 fL (36.4-46.3); White Blood Count 9.32 K/uL (4.8-10.8)
[2019-12-06 07:15] LABS: BUN Creatinine Ratio 15.7 (10-20); Calcium 8.3 mg/dl (8.5-10.1); Creatinine Clr Calc Pharmacy 79.6 ml/min; Est GFR (Non-African American) 95.8
[2019-12-06] MEDS: FOLIC ACID 1 MG TAB PO SCH (08:34)
[2019-12-06] MEDS: METOPROLOL TARTRATE 25 MG TAB PO SCH (08:34)
[2019-12-06] MEDS: DULOXETINE HCL 60 MG CAP PO SCH (08:34)
[2019-12-06] MEDS: ROSUVASTATIN CALCIUM 20 MG TAB PO SCH (08:34)
[2019-12-06] MEDS: LACTOBACILLUS ACIDOPHILUS (FLORANEX) TAB PO SCH ×3 (08:35→19:53)
[2019-12-06] MEDS: DOCUSATE SODIUM/SENNA 50/8.6MG TAB PO SCH (08:35)
[2019-12-06] MEDS: GABAPENTIN 600 MG TAB PO SCH ×3 (08:35→19:53)
[2019-12-06] MEDS: HYDROCORTISONE SOD 100 MG in SYRINGE 0 ML IV SCH ×3 (08:36→19:51)
[2019-12-06] MEDS: INSULIN ASPART 100 UNITS/ML 3 ML PEN SC SCH ×4 (08:41→21:56)
--- NOTE | 2019-12-06 09:16 | Infectious Disease Progress Nt ---
Date of Service December 06, 2019 Assessment & Plan (1) Infection of below knee amputation stump: agree with current abx, follow cultures. Await surgical findings. duration of abx will depend on extent of surgery, would suggest 4 weeks po levaquin upon d/c. (2) Necrosis of amputation stump of left lower extremity: Admission and Anticipated Discharge Date Admission Date: November 30, 2019 Subjective pt scheduled for OR, tolerating abx. remains afebrile. blood cultures negative and final. wbc improved to 9 today. creat remains stable. Results & Data ([facility]) Vital Signs (Past 12 Hours) Vital Signs Temp Pulse Pulse Resp BP Pulse Ox 12/06/19 07:52 36.9 C 75 18 104/69 97 12/06/19 03:22 36.5 C 73 14 126/81 92 12/06/19 00:00 36.8 C 83 18 124/77 94 12/05/19 23:30 85 Laboratory Results Microbiology 11/30/19 16:04 Blood Aerobic Blood Culture - Final No growth in Aerobic bottle after 5 days. 11/30/19 16:04 Blood Anaerobic Blood Culture - Final No growth in Anaerobic bottle after 5 days. 11/30/19 16:22 Blood Aerobic Blood Culture - Final No growth in Aerobic bottle after 5 days. 11/30/19 16:22 Blood Anaerobic Blood Culture - Final No growth in Anaerobic bottle after 5 days. 12/01/19 00:00 Leg,Left Gram Stain - Final 12/01/19 00:00 Leg,Left Wound Culture - Final Pseudom fluoresc/putida PG Care Time/CCT Total # of Minutes Spent Total Time Spent with Patient: Total time spent is greater than 50% in coordination of care (as documented) at patient's floor/unit and/or counseling patient: Coding Level of Care Code 40272 Subseq Hosp Care Lvl 1 Diagnoses Infection of below knee amputation stump T87.40 Necrosis of amputation stump of left lower extremity T87.54
[2019-12-06] MEDS ORDERED: MIDAZOLAM HCL 1 MG/ML 2ML VIAL ONE (10:42)
[2019-12-06] MEDS ORDERED: LIDOCAINE HCL 2% 2 ML VIAL/AMP(20MG/ML) INFIL ONE (10:42)
[2019-12-06] MEDS ORDERED: PROPOFOL IV EMULSION 10 MG/ML 20 ML VIAL IV ONE (10:42)
[2019-12-06] MEDS ORDERED: fentaNYL citrate 100 MCG/2 ML VIAL ONE (10:43)
--- NOTE | 2019-12-06 10:47 | Cardiology Progress Note ---
Date of Service December 06, 2019 Assessment & Plan (1) PAT (paroxysmal atrial tachycardia): No further arrhythmias would continue low-dose beta-liss (2) Abnormal EKG: EKG and evaluation of arrhythmia's morning demonstrates T wave in anterior leads. Patient high risk for underlying coronary disease but no signs or symptoms of past or current ischemia with preserved LV systolic function. Beta-liss added to regimen. As clinical course progresses would restart BRAIN inhibitor over prazosin for hypertension and renal and cardioprotective effect (3) Infection of below knee amputation stump: As above current pressing and supersedes any additional cardiac evaluation in asymptomatic patient. Surgical plans noted (4) PVD (peripheral vascular disease): Continue antiplatelet therapy and medications as noted. Patient n.p.o. for procedure in a.m. Tobacco cessation mandated Rosuvastatin restarted (5) Aortic valve cusp abnormality: Echocardiogram demonstrates focal calcification on the left coronary cusp. Given underlying infectious process vegetation not completely excluded. Patient's blood cultures have been negative on multiple testing however patient on antibiotic therapies prior to evaluation. Aortic valve is competent without stenosis or insufficiency or abscess. Would recommend serial echocardiograms and follow-up Echocardiogram today 12/06/2019 once again demonstrates no changes. Would recommend repeat in 2 weeks time Anticipating long-term antibiotic therapy as per ID Subjective To Patient seen, chart, medications, telemetry reviewed Patient without complaints this morning other than minimal pain No dizziness or lightheadedness no chest pain or shortness of breath. Telemetry reveals no arrhythmias heart rate and blood pressure well controlled. Repeat echocardiogram demonstrates once again focal calcification of the left coronary cusp of the aortic valve but no progression or mobile lesion to suggest vegetation. Normally functioning aortic valve and LV Physical Exam Constitutional: + obese; no acute distress Eyes: PERRL, conjunctivae normal, anicteric sclerae ENMT: external ear and nose normal, oropharynx normal Neck: + thick neck Respiratory: Auscultation: + diminished lung sounds (Clear to auscultation) Cardiovascular: Heart Sounds: normal S1, normal S2 and + murmur (Grade 1/6 systolic, no diastolic); no gallop Vessels: no JVD and no carotid bruit Gastrointestinal (Abdomen): normal bowel sounds, soft, nontender, no hepatosplenomegaly Percussion/Palpation: + hepatosplenomegaly Neurologic: PERRL, EOMI, accommodation nl, no face palsy, no dysarthria Psychiatric: A+Ox3, euthymic affect Results & Data Vital Signs (Past 12 Hours) Vital Signs Temp Pulse Pulse Resp BP Pulse Ox 12/06/19 10:20 36.6 C 61 18 134/70 96 12/06/19 07:52 36.9 C 75 18 104/69 97 12/06/19 03:22 36.5 C 73 14 126/81 92 12/06/19 00:00 36.8 C 83 18 124/77 94 12/05/19 23:30 85 Laboratory Results Laboratory Results - last 24 hr 12/05/19 12/05/19 12/05/19 12:08 15:26 15:34 WBC RBC Hgb Hct MCV MCH MCHC RDW Std Deviation RDW Coeff of Maik Plt Count MPV Absolute Nucleated RBC Nucleated RBC % (auto) Sodium Potassium Chloride Carbon Dioxide Anion Gap BUN Creatinine Est Cr Clr Drug Dosing Est GFR ( Amer) Est GFR (Non-Af Amer) BUN/Creatinine Ratio Glucose POC Glucose 161 H Calcium Blood Type O Negative Blood Type Recheck O Negative Antibody Screen NEGATIVE Crossmatch See Detail 12/05/19 12/05/19 12/06/19 16:31 20:25 06:00 WBC RBC Hgb Hct MCV MCH MCHC RDW Std Deviation RDW Coeff of Maik Plt Count MPV Absolute Nucleated RBC Nucleated RBC % (auto) Sodium 138 Potassium 4.0 D Chloride 109 H Carbon Dioxide 26 Anion Gap 3.0 BUN 12 Creatinine 0.74 Est Cr Clr Drug Dosing 79.6 Est GFR ( Amer) 111.0 Est GFR (Non-Af Amer) 95.8 BUN/Creatinine Ratio 15.7 Glucose 151 H POC Glucose 152 H 226 H Calcium 8.3 L Blood Type Blood Type Recheck Antibody Screen Crossmatch 12/06/19 12/06/19 12/06/19 06:00 07:41 10:13 WBC 9.32 RBC 2.90 L Hgb 8.3 L Hct 25.6 L MCV 88.3 MCH 28.6 MCHC 32.4 RDW Std Deviation 46.5 H RDW Coeff of Maik 14.6 H Plt Count 252 MPV 9.4 Absolute Nucleated RBC 0.06 H Nucleated RBC % (auto) 0.7 Sodium Potassium Chloride Carbon Dioxide Anion Gap BUN Creatinine Est Cr Clr Drug Dosing Est GFR ( Amer) Est GFR (Non-Af Amer) BUN/Creatinine Ratio Glucose POC Glucose 167 H 126 H Calcium Blood Type Blood Type Recheck Antibody Screen Crossmatch
[2019-12-06] MEDS ORDERED: BACITRACIN INJ 50,000 UNIT VIAL ONE (11:21)
[2019-12-06] MEDS ORDERED: BUPIVACAINE 0.5 % 5 MG/1 ML MPF 30ML VIAL ONE (11:21)
--- NOTE | 2019-12-06 11:25 | History & Physical Bridge Note ---
Date of Service December 06, 2019 History & Physical Bridge Note I have examined the patient, reviewed the History & Physical and in the interval since the performance of the History & Physical I have noted the following changes of clinical significance: no changes noted
--- NOTE | 2019-12-06 13:21 | Post Operative Brief Note ---
Immediate Post Op Note v1 Date of Surgery December 06, 2019 Pre & Post Diagnosis Operation Date: 12/04/19 10:20 Pre-Op Diagnosis: Bilateral Iliac Artery Stenosis, Gangrene of Left Stump Post-Op Diagnosis: Bilateral Iliac Artery Stenosis, Gangrene of Left Stump Operation Date: 12/06/19 10:00 Pre-Op Diagnosis: Necrosis of amputation stump of left lower extremity, large eschar with wound necrosis 14 cm x 22 cm, large abscess distal left lower extremity, gangrene of left lower extremity stump, severe peripheral vascular disease Post-Op Diagnosis: Necrosis of amputation stump of left lower extremity including skin, fascia, subcutaneous adipose, large eschar with wound necrosis 14 cm x 22 cm, large abscess distal left lower extremity 75 cc, gangrene of left lower extremity stump, severe peripheral vascular disease I identified the patient and participated in the time-out.: Yes Procedure Operation Date: 12/04/19 10:20 Actual Procedures p Bilateral Common Iliac Artery Stenting, Bilateral External Iliac Artery Stenting,Ultrasound Localization of Bilateral Femoral Arteries, Moderate Sedation [id number], (Bilateral) - Brian De MD Operation Date: 12/06/19 10:00 Actual Procedures p Left Incision and Drainage of abscess (75 cc) below Knee Amputation Stump, Extensive Debridement Skin, Fascia and Subcutaneous adipose tissue, debridement of large eschar/vascular insufficiency ulcer 14 cm x 22 cm (Left) - Vinay Morton DO Surgeon Vinay Morton DO Scalehouse Attendant Luis Montgomery PA-C Estimated Blood Loss 5 Findings Consistent with Post-Op Diagnosis Evacuation of 75 cc purulent/necrotic abscess material distal left lower extremity stump. Caseating necrosis adjacent adipose tissue. Specimens Aerobic anaerobic Gram stain left BKA stump abscess; eschar and necrotic tissue distal lower extremity stump Drains Hemovac Drain Anesthesia Type General Complications none Disposition Accompanied Patient To Recovery: Yes Disposition: Recovery Room
[2019-12-06] MEDS ORDERED: ATROPINE SULFATE 0.1 MG/ML 10ML SYR IV PRN ×2 (13:23→15:01)
[2019-12-06] MEDS ORDERED: ONDANSETRON INJ 2 MG/ML 2 ML VIAL IV PRN ×3 (13:23→15:01)
[2019-12-06] MEDS ORDERED: ePHEDrine sulfate 50 MG/ML AMP IV PRN ×2 (13:23→15:01)
[2019-12-06] MEDS: fentaNYL citrate 100 MCG/2 ML VIAL IV PRN ×4 (13:30→13:58)
[2019-12-06] MEDS ORDERED: bisacodyL 10 MG SUPP PR PRN (14:47)
[2019-12-06] MEDS ORDERED: MAGNESIUM HYDROXIDE SUSP 30 ML UDC PO PRN (14:47)
[2019-12-06] MEDS ORDERED: NALOXONE HCL 0.4 MG/1 ML VIAL/CARP IV PRN (14:47)
[2019-12-06] MEDS ORDERED: METOCLOPRAMIDE HCL INJ 5 MG/ML 2 ML VIAL IV PRN (14:47)
--- NOTE | 2019-12-06 14:47 | Operative Report (OR) ---
DATE OF OPERATION: 12/06/2019 PREOPERATIVE DIAGNOSES: 1. Left below knee amputation, necrosis of amputation stump. 2. Eschar with wound necrosis left lower extremity stump, 14 x 22 cm. 3. Large abscess left lower extremity, 75 mL. 4. Gangrene. 5. Severe peripheral vascular disease. POSTOPERATIVE DIAGNOSES: 1. Left below knee amputation, necrosis of amputation stump. 2. Eschar with wound necrosis left lower extremity stump, 14 x 22 cm. 3. Large abscess left lower extremity, 75 mL. 4. Gangrene. 5. Severe peripheral vascular disease. PROCEDURES: 1. Left lower extremity below-knee amputation stump incision and drainage abscess (75 mL). 2. Extensive debridement of skin/fascia and subcutaneous adipose tissue, left lower extremity. 3. Debridement large eschar/vascular insufficiency ulcer measuring 14 x 22 cm. SURGEON: Vinay Morton DO. SQL DATA ARCHITECT: Luis Montgomery PA-C, who was present for patient positioning, sterile prep and drape, management of retractors and instruments. He was present through the critical portions of the case including wound closure, application of sterile dressing and transport of the patient to recovery. ANESTHESIA: General. SPECIMENS: 1. Aerobic, anaerobic, Gram stain abscess material left lower extremity stump. 2. Eschar, necrotic tissue left lower extremity stump. DRAINS: 1. Hemovac x1. 2. An 1-inch iodoform gauze drains x2 for packing. COMPLICATIONS: None. BLOOD LOSS: 5 mL. ABSCESS DRAINAGE: 75 mL. PERTINENT HISTORY: This is a 49-year-old female with significant peripheral vascular disease. She had a previous stenting and status post bilateral below knee amputations by another provider at [facility]. The left below knee amputation was performed previously and up until fairly recently, the patient had no significant difficulty of the left lower extremity. She initially developed areas of wound necrosis in the hospital, attempted conservative management with IV antibiotics, failed conservative management, was evaluated by Vascular Surgery and had a revision stenting of her iliac arteries with improved patency and flow and then she was scheduled for surgery as indicated. The patient's care and scheduling of the surgical case was deemed urgent due to the severe infection, abscess and potential for loss of limb and loss of life. The patient understood these risks and decided to proceed with procedure as indicated. All potential risks, benefits, complications, alternatives, rehab, potential for incomplete relief of symptoms, need for further surgery, DVT, PE, , persistent pain, swelling, scarring, weakness, neurovascular injury, wound complications, need for further surgery, possibly further amputation, an enhanced risk for COVID-19 or other influenza disease understood by the patient. She decided to proceed with procedure as indicated. DESCRIPTION OF PROCEDURE: The patient was taken to the operative suite, placed supine on the table. After review of the consent and identification of proper operative site, the patient was anesthetized. Left lower extremity was then sterilely prepped and draped in usual fashion. There was no pneumatic tourniquet used. Left lower extremity was then elevated and exsanguinated with an Esmarch bandage from the knee proximally and then an Esmarch tourniquet was applied over sterile surgical towel just above the knee. Next, the necrotic eschar and vascular insufficiency ulcer with discoloration was sharply debrided with 15-blade scalpel through the eschar and into the subcutaneous adipose tissue. After unroofing of the eschar, purulent discharge poured forth approximately 75 mL in total and this was evacuated. It was also sampled for aerobic, anaerobic, Gram stain. This tracked deep into the subcutaneous fat extending posteromedially and distally as well as slightly posterolaterally. After all gross purulence was evacuated using a large curette, the subcutaneous adipose tissue, which appeared necrotic and discolored, was sharply excised with 15-blade scalpel. This did track to the muscular layer; however, did not appear to violate the distal aspect of the muscular flap, nor did appear to violate the distal aspect of the residual tibia. Next, a combination of sharp and blunt debridement was performed of the adipose necrotic fat with caseating necrosis. The dermis and residual fascia were sharply debrided with a 15-blade scalpel and large curette. The eschar have been measured 14 cm x 22 cm. Excised necrotic tissue was then sent for pathology. Once all obviously necrotic tissue was sharply excised and removed, pulsatile lavage with 3 liters of sterile saline and bacitracin were used to lavage the residual limb until clear. Next, 10-Faroese single lumen Hemovac drain was placed in the distal aspect of the stump exiting through a small percutaneous puncture followed by packing with 1 inch iodoform gauze posteromedially and then posterolaterally. space was then closed using interrupted 2-0 nylon sutures, combination of simple and horizontal mattress stitches. Tissue appeared more healthy with no evidence of eschar, necrotic tissue after debridement. Next, a sterile lightly compressive dressing was applied overwrapped with an Trevor wrap. The Esmarch tourniquet was removed. Cap refill is approximately 2-3 seconds. The patient was awakened and taken to Recovery in stable condition. I attest to the content of the Intraoperative Record and any orders documented therein. Any exceptions are noted below. SABRAD
[2019-12-06] MEDS ORDERED: HYDROmorphone INJ 2 MG/ML SYR/VIAL IV PRN (15:01)
[2019-12-06] MEDS ORDERED: fentaNYL citrate 100 MCG/2 ML VIAL IV PRN (15:01)
--- NOTE | 2019-12-06 15:03 | Anesthesiology Progress Note ---
Date of Service December 06, 2019 Anesthesia Post Procedure Vital Signs Vital Signs: Temp Pulse Pulse Pulse Resp BP BP 12/06/19 14:49 36.5 C 74 20 121/73 12/06/19 14:20 36.4 C L 75 18 128/72 12/06/19 14:05 79 18 114/91 12/06/19 13:55 80 14 130/92 12/06/19 13:45 72 14 126/77 12/06/19 13:35 78 14 150/92 H 12/06/19 13:25 82 14 141/88 H 12/06/19 13:18 36.0 C L 87 13 144/87 H 12/06/19 10:20 36.6 C 61 18 12/06/19 07:52 36.9 C 75 18 12/06/19 03:22 36.5 C 73 14 12/06/19 00:00 36.8 C 83 18 12/05/19 23:30 85 12/05/19 20:00 36.8 C 89 18 97/65 L 12/05/19 19:31 37 C 90 16 12/05/19 18:54 36.8 C 89 18 88/55 L 12/05/19 17:54 36.4 C L 89 18 89/56 L 12/05/19 17:24 36.8 C 77 18 104/71 12/05/19 17:09 36.6 C 78 16 91/62 L 12/05/19 16:52 36.7 C 82 16 93/60 L 12/05/19 16:01 100 H 12/05/19 15:34 36.4 C L 87 20 BP Pulse Ox 12/06/19 14:49 100 12/06/19 14:20 100 12/06/19 14:05 99 12/06/19 13:55 96 12/06/19 13:45 96 12/06/19 13:35 100 12/06/19 13:25 100 12/06/19 13:18 100 12/06/19 10:20 134/70 96 12/06/19 07:52 104/69 97 12/06/19 03:22 126/81 92 12/06/19 00:00 124/77 94 12/05/19 23:30 12/05/19 20:00 91 12/05/19 19:31 95/61 L 94 12/05/19 18:54 93 12/05/19 17:54 95 12/05/19 17:24 98 12/05/19 17:09 96 12/05/19 16:52 12/05/19 16:01 12/05/19 15:34 87/45 L 97 Pain Intensity Left Leg: Pain Intensity: 5 Right Groin: Pain Intensity: 11 Transfer of Care Handoff Completed per policy Notes Mental Status: alert / awake / arousable and participated in evaluation Patient Amnestic to Procedure: Yes Nausea / Vomiting: adequately controlled Pain: adequately controlled Airway Patency, RR, SpO2: stable & adequate BP & HR: stable & adequate Hydration State: stable & adequate Anesthetic Complications: no major complications apparent and Pt Satisfied with anesthetic care
[2019-12-06] MEDS: SODIUM CHLORIDE 0.9% 1000ML 1,000 ML IV SCH (15:25)
[2019-12-06] MEDS: OXYCODONE HCL IR 5 MG TAB (IMMEDIATE RELEASE) PO PRN (15:39)
[2019-12-06 17:24] LABS: Hematocrit (blood only) 29.8 % (37-47); Hemoglobin 9.5 g/dL (12.0-16.0)
[2019-12-06] MEDS: HYDROmorphone INJ 1 MG/ML SYRINGE IV PRN ×2 (17:53→22:03)
--- NOTE | 2019-12-06 17:53 | Hospitalist Progress Note ---
Date of Service December 06, 2019 Assessment & Plan (1) Infection of below knee amputation stump: 49-year-old female with history of severe peripheral artery disease, aortic iliac occlusive disease status post bilateral BKA, Rheumatoid arthritis on chronic prednisone, diabetes type 2, hypertension dyslipidemia presenting with increasing pain and swelling of the left BKA stump. ABSCESS /GANGRENE /NECROSIS OF LEFT BKA INFECTED STUMP: CT of the left lower extremity significant for 2.5 cm complex fluid collection noted at left BKA site s/p I&D with draninage of large abscess 75 ml /with extensive debridement necrotic tissues surgery sample sent for gram stain and culture previous culture : psudomonus pt is continued with Zosyn SEPSIS SECONDARY TO LEFT BKA STUMP NONHEALING INFECTED WOUND, CELLULITIS met criteria of sepsis on admission --Was discharged from [facility] on doxycycline and cefdinir last November 21, 2019 but patient's left BKA stump wound and cellulitis continue to progress -admitted heart rate of 106, leukocytosis of 13,900, and infected left BKA wound Lactic acid normalized from 2.6-1.7 within 2 hours in the emergency room -- s/p I&D , abx outlined above ID following , appreciate input will follow the post sugery culture report tentative plan is to discharge on PO Levaquin if surgical culture grows : Psedomonus - SEVERE PERIPHERAL ARTERY DISEASE, AORTOILIAC OCCLUSION STATUS POST BILATERAL BKA -- vasculary surgery consulted - appreciate input /S/p bilateral illiac artery sent placement Cont on Palvix statin resumed Abnormal heart rhythm -episode of PAT ( paroxysmal atrial tachycardia ) noted , pt remains asymptomatic -appreciate input form Cardiology -started on Betablocker ECHO FINDING OF AORTIC VALVE ABNORMALITY : Echocardiogram : finding of focal calcification on the left coronary cusp/aortic valve competent without stenosis or insufficiency of abscess Blood cultures been negative repeat ECHO today 12/06/2019: shows no change surveillance ECHO in 2 weeks as out patient DIABETES TYPE 2 --[place] to be steroid induced --Hold metformin, insulin sliding scale ordered HYPERTENSION - BP remains in low 100's Lisinopril kept on hold HX O RA WITH CHRONIC PREDNISONE : hold PO prednisone IV Hydrocortisone stress dose post op will start wean down in next 24-48 hrs if BP remains stable DVT prophylaxis --ordered for SC heparin CODE STATUS --Full code DISPOSITION : lives at home active with home coordinator plan to dc home with home health , AID services when medically stable Admission and Anticipated Discharge Date Admission Date: November 30, 2019 Subjective s/p left BKA infected stump I&D today noted to have large abscess with gangrene at left BKA area underwent extensive debridement seen post op bit groggy from anesthesia awake and able to answer questions complains of pain on left BKA surgical site stable vitals Post surgery H&H shows stable Hb 9.5 Review of Systems Review of Systems: All systems reviewed & are unremarkable except as noted in HPI & below Musculoskeletal: s/p I&D of left BKA infected stump /drainage of abscess , Physical Exam Constitutional: WD/WN, vitals as above + ill appearing Eyes: PERRL, conjunctivae normal, anicteric sclerae ENMT: external ear and nose normal, oropharynx normal Neck: trachea midline, no thyromegaly Respiratory: normal respiratory effort, lungs clear to auscultation Cardiovascular: Rate/Rhythm: regular rate and regular rhythm Gastrointestinal (Abdomen): Inspection/Auscultation: normal bowel sounds Percussion/Palpation: abdomen soft; abdomen nontender Musculoskeletal: bilateral BKA s/p Abscess drainage of the left infected BKA stump drain present Neurologic: PERRL, EOMI, accommodation nl, no face palsy, no dysarthria Results & Data Results & Data ([facility]) Vital Signs (Past 12 Hours) Vital Signs Temp Pulse Pulse Pulse Resp BP BP 12/06/19 17:17 36.3 C L 78 16 110/63 12/06/19 16:33 36.4 C L 69 18 107/73 12/06/19 15:59 36.4 C L 70 20 117/66 12/06/19 15:32 36.3 C L 70 18 107/62 12/06/19 15:10 74 12/06/19 14:49 36.5 C 74 20 121/73 12/06/19 14:20 36.4 C L 75 18 128/72 12/06/19 14:05 79 18 114/91 12/06/19 13:55 80 14 130/92 12/06/19 13:45 72 14 126/77 12/06/19 13:35 78 14 150/92 H 12/06/19 13:25 82 14 141/88 H 12/06/19 13:18 36.0 C L 87 13 144/87 H 12/06/19 10:20 36.6 C 61 18 134/70 12/06/19 07:52 36.9 C 75 18 104/69 Pulse Ox 12/06/19 17:17 93 12/06/19 16:33 100 12/06/19 15:59 100 12/06/19 15:32 100 12/06/19 15:10 12/06/19 14:49 100 12/06/19 14:20 100 12/06/19 14:05 99 12/06/19 13:55 96 12/06/19 13:45 96 12/06/19 13:35 100 12/06/19 13:25 100 12/06/19 13:18 100 12/06/19 10:20 96 12/06/19 07:52 97
[2019-12-06] MEDS: CLOPIDOGREL BISULFATE 75 MG TAB PO SCH (19:51)
[2019-12-06] MEDS: DOCUSATE SODIUM 100 MG CAP PO SCH (19:51)
[2019-12-06] MEDS: SENNA 8.6 MG TAB PO SCH (19:52)
[2019-12-07] MEDS: SODIUM CHLORIDE 0.9% 1000ML 1,000 ML IV SCH (00:52)
[2019-12-07] MEDS: PIPERACILLIN/TAZOBACTAM 3.375 GM in DEXTROSE 5% 100 ML IV SCH ×3 (05:16→22:05)
[2019-12-07 07:16] LABS: Basophils # (auto) 0.02 K/uL (0-0.2); Basophils % (auto) 0.2 %; Hematocrit (blood only) 24.4 % (37-47); Hemoglobin 7.8 g/dL (12.0-16.0); Immature Granulocytes # (auto) 0.12 K/uL (0.00-0.02); Lymphocytes # (auto) 2.56 K/uL (1.2-3.4); Lymphocytes % (auto) 21.4 %; Mean Corpuscular Hemoglobin 28.8 pg (25-34); Mean Platelet Volume 9.1 fL (7.4-10.4); Monocytes # (auto) 0.63 K/uL (0.11-0.59); Monocytes % (auto) 5.3 %; Neutrophils # (auto) 8.66 K/uL (1.4-6.5); Neutrophils % (auto) 72.1 %; Nucleated RBC # (auto) 0.03 K/uL (0-0); Nucleated RBC % (auto) 0.3 %; Platelet Count 268 K/uL (130-400); RDW Coefficient of Variation 15.2 % (11.5-14.5); RDW Standard Deviation 49.3 fL (36.4-46.3); Red Blood Count 2.71 M/uL (4.2-5.4); White Blood Count 11.99 K/uL (4.8-10.8)
[2019-12-07 07:40] LABS: BUN Creatinine Ratio 16.6 (10-20); Calcium 8.5 mg/dl (8.5-10.1); Creatinine Clr Calc Pharmacy 80.7 ml/min; Est GFR (African American) 105.8; Est GFR (Non-African American) 91.3; Potassium 4.3 mmol/L (3.5-5.1)
[2019-12-07] MEDS: HYDROmorphone INJ 1 MG/ML SYRINGE IV PRN ×3 (07:58→20:18)
[2019-12-07] MEDS: HYDROCORTISONE SOD 100 MG in SYRINGE 0 ML IV SCH ×2 (08:01→20:33)
[2019-12-07] MEDS: LACTOBACILLUS ACIDOPHILUS (FLORANEX) TAB PO SCH ×3 (08:01→20:31)
[2019-12-07] MEDS: METOPROLOL TARTRATE 25 MG TAB PO SCH (08:02)
[2019-12-07] MEDS: GABAPENTIN 600 MG TAB PO SCH ×3 (08:02→20:31)
[2019-12-07] MEDS: MULTIVITAMIN TAB PO SCH (08:02)
[2019-12-07] MEDS: FOLIC ACID 1 MG TAB PO SCH (08:03)
[2019-12-07] MEDS: DOCUSATE SODIUM/SENNA 50/8.6MG TAB PO SCH (08:03)
[2019-12-07] MEDS: DULOXETINE HCL 60 MG CAP PO SCH (08:03)
[2019-12-07] MEDS: ROSUVASTATIN CALCIUM 20 MG TAB PO SCH (08:04)
[2019-12-07] MEDS: INSULIN ASPART 100 UNITS/ML 3 ML PEN SC SCH ×4 (08:08→21:00)
[2019-12-07] MEDS: DOCUSATE SODIUM 100 MG CAP PO SCH ×2 (08:11→20:32)
[2019-12-07] MEDS ORDERED: SODIUM CHLORIDE 0.9% 250 ML IV PRN (09:50)
--- NOTE | 2019-12-07 09:55 | Hospitalist Progress Note ---
Date of Service December 07, 2019 Assessment & Plan (1) Acute blood loss anemia: hb drop 7.8 noted due to acute blood loss anemia post op status ordered for 1 unit PRBC tx repeat CBC in am (2) Infection of below knee amputation stump: 49-year-old female with history of severe peripheral artery disease, aortic iliac occlusive disease status post bilateral BKA, Rheumatoid arthritis on chronic prednisone, diabetes type 2, hypertension dyslipidemia presenting with increasing pain and swelling of the left BKA stump. ABSCESS /GANGRENE /NECROSIS OF LEFT BKA INFECTED STUMP: CT of the left lower extremity significant for 2.5 cm complex fluid collection noted at left BKA site s/p I&D with draninage of large abscess 75 ml /with extensive debridement necrotic tissues on 12/06/19 surgery sample sent for gram stain and culture-will follow result previous culture : psudomonus pt is continued with Zosyn SEPSIS SECONDARY TO LEFT BKA STUMP NONHEALING INFECTED WOUND, CELLULITIS met criteria of sepsis on admission --Was discharged from [facility] on doxycycline and cefdinir last November 21, 2019 but patient's left BKA stump wound and cellulitis continue to progress -admitted heart rate of 106, leukocytosis of 13,900, and infected left BKA wound Lactic acid normalized from 2.6-1.7 within 2 hours in the emergency room -- s/p I&D , abx outlined above ID following , appreciate input tentative plan is to discharge on PO Levaquin if surgical culture grows : Psedomonus - SEVERE PERIPHERAL ARTERY DISEASE, AORTOILIAC OCCLUSION STATUS POST BILATERAL BKA -- vasculary surgery consulted - appreciate input /S/p bilateral illiac artery sent placement Cont on Palvix statin resumed Abnormal heart rhythm -episode of PAT ( paroxysmal atrial tachycardia ) noted , pt remains asymptomatic -appreciate input form Cardiology cont on betablocker ECHO FINDING OF AORTIC VALVE ABNORMALITY : Echocardiogram : finding of focal calcification on the left coronary cusp/aortic valve competent without stenosis or insufficiency of abscess Blood cultures been negative repeat ECHO today 12/06/2019: shows no change surveillance ECHO in 2 weeks as out patient DIABETES TYPE 2 cont insulin sliding scale HYPERTENSION lisinopril was kept on hold for hypotension -pre op BP stable now will resume ACEI HX O RA WITH CHRONIC PREDNISONE : wean down IV Hydrocortisone stress dose as BP stable DVT prophylaxis moderate to high risk -SC heparin CODE STATUS --Full code DISPOSITION : lives at home active with licensed home inspector plan to dc home with home health , AID services when medically stable Admission and Anticipated Discharge Date Admission Date: November 30, 2019 Subjective pain on left BKA surgical site much better denies of any other complain no fever or chills no complain of dizzy spell or lightheadedness no cough or SOB Physical Exam Constitutional: WD/WN, vitals as above + ill appearing Eyes: PERRL, conjunctivae normal, anicteric sclerae ENMT: external ear and nose normal, oropharynx normal Neck: trachea midline, no thyromegaly Respiratory: normal respiratory effort, lungs clear to auscultation Cardiovascular: Rate/Rhythm: regular rate and regular rhythm Gastrointestinal (Abdomen): Inspection/Auscultation: normal bowel sounds Percussion/Palpation: abdomen soft; abdomen nontender Neurologic: PERRL, EOMI, accommodation nl, no face palsy, no dysarthria Psychiatric: A+Ox3, euthymic affect Results & Data Results & Data ([facility]) Vital Signs (Past 12 Hours) Vital Signs Temp Pulse Pulse Pulse Resp BP Pulse Ox 12/07/19 07:16 36.7 C 105 H 18 124/76 94 12/07/19 05:18 36.4 C L 81 18 131/84 94 12/07/19 00:35 96 H
--- NOTE | 2019-12-07 10:10 | Orthopedic Progress Note ---
Date of Service December 07, 2019 Assessment & Plan (1) Necrosis of amputation stump of left lower extremity: Postoperative day 1 status post irrigation debridement of left below-knee amputation infected stump by Dr. Morton. -Dressings changed today. Drain and part of the wound packing were removed. We will plan for an additional dressing change tomorrow. -Currently on Zosyn. Antibiotics per primary team. Admission and Anticipated Discharge Date Admission Date: November 30, 2019 Subjective Patient is doing fairly well this morning. Pain is well controlled. [facility] Physical Exam Physical Exam: Dressings and drain on left below-knee amputation stump are c lean, dry, and intact. Drain had no significant output in the reservoir, and is not holding suction. The dressings were taken down and changed. She has a few sutures in place, with packing both on the medial and lateral aspects of the BKA stump incision line. There is some residual eschar distally; the patient reports that this looks markedly improved from preoperatively. Her drain was pulled, and about 6 inches of the packing were removed from the medial side, and about 3 inches from the lateral side. New clean dressings were applied. Results & Data ([facility]) Vital Signs (Past 12 Hours) Vital Signs Temp Pulse Pulse Pulse Resp BP Pulse Ox 12/07/19 07:16 36.7 C 105 H 18 124/76 94 12/07/19 05:18 36.4 C L 81 18 131/84 94 12/07/19 00:35 96 H Laboratory Results Left leg cultures from 11/30 showed Pseudom fluoresc/putida. Intraoperative cultures obtained yesterday 12/05 were negative on Gram stain, and culture is pending.
--- NOTE | 2019-12-07 11:22 | Cardiology Progress Note ---
Date of Service December 07, 2019 Assessment & Plan (1) PAT (paroxysmal atrial tachycardia): No further arrhythmias would continue low-dose beta-liss (2) Abnormal EKG: EKG and evaluation of arrhythmia's morning demonstrates T wave in anterior leads. Patient high risk for underlying coronary disease but no signs or symptoms of past or current ischemia with preserved LV systolic function. Beta-liss added to regimen. As clinical course progresses would restart BRAIN inhibitor over prazosin for hypertension and renal and cardioprotective effect (3) Infection of below knee amputation stump: As above current pressing and supersedes any additional cardiac evaluation in asymptomatic patient. Surgical plans noted (4) PVD (peripheral vascular disease): Continue antiplatelet therapy and medications as noted. Patient n.p.o. for procedure in a.m. Tobacco cessation mandated Rosuvastatin restarted (5) Aortic valve cusp abnormality: Echocardiogram demonstrates focal calcification on the left coronary cusp. Given underlying infectious process vegetation not completely excluded. Patient's blood cultures have been negative on multiple testing however patient on antibiotic therapies prior to evaluation. Aortic valve is competent without stenosis or insufficiency or abscess. Would recommend serial echocardiograms and follow-up Echocardiogram today 12/06/2019 once again demonstrates no changes. Would recommend repeat in 2 weeks time Anticipating long-term antibiotic therapy as per ID Subjective Patient seen and examined, states that she is doing relatively well. Still with discomfort at surgical site but otherwise without complaint. Denies any cardiac complaints of chest pain, shortness of breath, palpitations, lightheadedness, dizziness or syncope. Telemetry reviewed: Normal sinus rhythm without arrhythmia or significant ectopy. Review of Systems Review of Systems: All systems reviewed & are unremarkable except as noted in HPI & below Physical Exam Physical Exam: General: Awake, alert and oriented x 3. No acute distress. HEENT: Normocephalic, atraumatic. Pupils equal, round and reactive to light and accommodation. Extraocular muscles are intact. Anicteric sclera. Moist mucous membranes. Neck: No JVD. No bruit. Cardiovascular: Regular. Positive S-4. Normal S-1 and S-2. No S-3. 3/6 mid to late systolic ejection murmur, greatest at the right sternal border, second intercostal space with radiation to the bilateral carotids. No rubs. Pulmonary: Clear to auscultation bilaterally. No rales, rhonchi, or wheezing. Abdomen: Bowel sounds x 4, soft. No rebound, guarding or tenderness. No organomegaly. Extremities: Bilateral BKA's, left stump is bandaged. Skin: Warm and dry. Results & Data Vital Signs (Past 12 Hours) Vital Signs Temp Pulse Pulse Pulse Resp BP BP 12/07/19 11:09 36.8 C 78 18 140/81 12/07/19 10:53 36.7 C 78 18 138/83 12/07/19 07:16 36.7 C 105 H 18 124/76 12/07/19 05:18 36.4 C L 81 18 131/84 12/07/19 00:35 96 H Pulse Ox 12/07/19 11:09 96 12/07/19 10:53 96 12/07/19 07:16 94 12/07/19 05:18 94 12/07/19 00:35
[2019-12-07] MEDS: lisinopriL 10 MG TAB PO SCH (15:36)
[2019-12-07] MEDS: OXYCODONE HCL IR 5 MG TAB (IMMEDIATE RELEASE) PO PRN (16:50)
[2019-12-07] MEDS: CLOPIDOGREL BISULFATE 75 MG TAB PO SCH (20:31)
[2019-12-07] MEDS: SENNA 8.6 MG TAB PO SCH (20:31)
[2019-12-08] MEDS: OXYCODONE HCL IR 5 MG TAB (IMMEDIATE RELEASE) PO PRN ×3 (04:44→22:00)
[2019-12-08] MEDS: PIPERACILLIN/TAZOBACTAM 3.375 GM in DEXTROSE 5% 100 ML IV SCH (06:07)
[2019-12-08 06:59] LABS: Hematocrit (blood only) 33.6 % (37-47); Hemoglobin 10.9 g/dL (12.0-16.0); Mean Corpuscular Hemoglobin 28.9 pg (25-34); Mean Corpuscular Hgb Conc 32.4 g/dL (32-36); Mean Corpuscular Volume 89.1 fL (80-100); Mean Platelet Volume 9.5 fL (7.4-10.4); Platelet Count 269 K/uL (130-400); RDW Coefficient of Variation 15.6 % (11.5-14.5); RDW Standard Deviation 48.6 fL (36.4-46.3); Red Blood Count 3.77 M/uL (4.2-5.4); White Blood Count 14.71 K/uL (4.8-10.8)
[2019-12-08 07:20] LABS: BUN Creatinine Ratio 15.2 (10-20); Creatinine Clr Calc Pharmacy 62.4 ml/min; Est GFR (African American) 79.1; Est GFR (Non-African American) 68.2; Potassium 4.1 mmol/L (3.5-5.1)
[2019-12-08] MEDS: ROSUVASTATIN CALCIUM 20 MG TAB PO SCH (08:10)
[2019-12-08] MEDS: INSULIN ASPART 100 UNITS/ML 3 ML PEN SC SCH ×4 (08:10→20:42)
[2019-12-08] MEDS: DOCUSATE SODIUM/SENNA 50/8.6MG TAB PO SCH (08:11)
[2019-12-08] MEDS: HYDROCORTISONE SOD 100 MG in SYRINGE 0 ML IV SCH (08:11)
[2019-12-08] MEDS: MULTIVITAMIN TAB PO SCH (08:11)
[2019-12-08] MEDS: LACTOBACILLUS ACIDOPHILUS (FLORANEX) TAB PO SCH ×3 (08:11→20:43)
[2019-12-08] MEDS: GABAPENTIN 600 MG TAB PO SCH ×3 (08:11→20:43)
[2019-12-08] MEDS: DULOXETINE HCL 60 MG CAP PO SCH (08:12)
[2019-12-08] MEDS: DOCUSATE SODIUM 100 MG CAP PO SCH ×2 (08:12→20:43)
[2019-12-08] MEDS: lisinopriL 10 MG TAB PO SCH (08:12)
[2019-12-08] MEDS: METOPROLOL TARTRATE 25 MG TAB PO SCH (08:12)
[2019-12-08] MEDS: FOLIC ACID 1 MG TAB PO SCH (08:12)
--- NOTE | 2019-12-08 09:29 | Orthopedic Progress Note ---
Date of Service December 08, 2019 Assessment & Plan (1) Necrosis of amputation stump of left lower extremity: Postoperative day 2 status post irrigation debridement of left below-knee amputation infected stump by Dr. Morton. -Dressings changed today. She still has some medial packing in place. Plan for an additional dressing change tomorrow with removal of the remainder of the packing. -Currently on Zosyn. Antibiotics per primary team. Admission and Anticipated Discharge Date Admission Date: November 30, 2019 Subjective Patient is doing well this morning. No specific complaints. Pain is controlled. Physical Exam Physical Exam: Dressings on left below-knee amputation stump are clean, dry, and intact. The dressings were taken down and changed. She again has a few sutures in place, with packing both on the medial and lateral aspects of the BKA stump incision line. There is residual eschar distally. Moderate serous sanguinous drainage from the packing sites. The packing on the lateral side of the wound was completely removed, and another approximately 4 inches of packing was removed from the medial side. New clean dressings were applied. Results & Data ([facility]) Vital Signs (Past 12 Hours) Vital Signs Temp Pulse Pulse Resp BP Pulse Ox 12/08/19 08:00 36.4 C L 76 18 148/82 H 91 12/08/19 07:46 87 12/08/19 04:58 36.6 C 70 18 138/81 91 12/08/19 00:23 36.3 C L 77 16 140/90 93 12/07/19 22:58 110 H
[2019-12-08] MEDS ORDERED: HYDROmorphone INJ 1 MG/ML SYRINGE IV PRN (11:21)
[2019-12-08] MEDS: levoFLOXacin 750 MG TAB PO SCH (12:06)
--- NOTE | 2019-12-08 12:42 | Hospitalist Progress Note ---
Date of Service December 08, 2019 Assessment & Plan (1) Acute blood loss anemia: due to acute blood loss anemia post op status s/p 1 unit PRBC tx on 12/07/19 hb stable @10 (2) Infection of below knee amputation stump: 49-year-old female with history of severe peripheral artery disease, aortic iliac occlusive disease status post bilateral BKA, Rheumatoid arthritis on chronic prednisone, diabetes type 2, hypertension dyslipidemia presenting with increasing pain and swelling of the left BKA stump. ABSCESS /GANGRENE /NECROSIS OF LEFT BKA INFECTED STUMP: CT of the left lower extremity significant for 2.5 cm complex fluid collection noted at left BKA site s/p I&D with draninage of large abscess 75 ml /with extensive debridement necrotic tissues on 12/06/19 surgery sample gram stain and culture-no growth previous culture : psudomonus Abx changed to PO levaquin total 10 days of tx SEPSIS SECONDARY TO LEFT BKA STUMP NONHEALING INFECTED WOUND, CELLULITIS resolved met criteria of sepsis on admission --Was discharged from [facility] on doxycycline and cefdinir last November 21, 2019 but patient's left BKA stump wound and cellulitis continue to progress -admitted heart rate of 106, leukocytosis of 13,900, and infected left BKA wound Lactic acid normalized from 2.6-1.7 within 2 hours in the emergency room -- s/p I&D , abx outlined above ID following , appreciate input SEVERE PERIPHERAL ARTERY DISEASE, AORTOILIAC OCCLUSION STATUS POST BILATERAL BKA -- vasculary surgery consulted - appreciate input /S/p bilateral illiac artery sent placement Cont on Palvix statin resumed Abnormal heart rhythm -episode of PAT ( paroxysmal atrial tachycardia ) noted , pt remains asymptomatic -appreciate input form Cardiology cont on beta liss tele d/jordan ECHO FINDING OF AORTIC VALVE ABNORMALITY : Echocardiogram : finding of focal calcification on the left coronary cusp/aortic valve competent without stenosis or insufficiency of abscess Blood cultures been negative repeat ECHO today 12/06/2019: shows no change surveillance ECHO in 2 weeks as out patient DIABETES TYPE 2 cont insulin sliding scale HYPERTENSION in Beta liss and Lisinopril HX O RA WITH CHRONIC PREDNISONE : PO prednisone 5 mg daily stress dose of Iv hydrocortisone D/jordan DVT prophylaxis moderate to high risk -SC heparin CODE STATUS --Full code DISPOSITION : lives at home active with home performance consultant plan to dc home with home health possible tomorrow Admission and Anticipated Discharge Date Admission Date: November 30, 2019 Subjective Patient says feels much better today, throbbing pain on left BKA stump area has significantly improved after surgery no fever or chills no complain of chest pain or SOB , no dizzy spell or palpitation Review of Systems Review of Systems: All systems reviewed & are unremarkable except as noted in HPI & below Constitutional: no fever and no chills Respiratory: no cough, no dyspnea and no wheezing Cardiovascular: + syncope; no chest pain, no dyspnea, no orthopnea, no palpitations and no lightheadedness Physical Exam Constitutional: WD/WN, vitals as above + ill appearing Eyes: PERRL, conjunctivae normal, anicteric sclerae ENMT: external ear and nose normal, oropharynx normal Neck: trachea midline, no thyromegaly Respiratory: normal respiratory effort, lungs clear to auscultation Cardiovascular: Rate/Rhythm: regular rate and regular rhythm Gastrointestinal (Abdomen): Inspection/Auscultation: normal bowel sounds Percussion/Palpation: abdomen soft; abdomen nontender Neurologic: PERRL, EOMI, accommodation nl, no face palsy, no dysarthria Psychiatric: A+Ox3, euthymic affect Results & Data Results & Data ([facility]) Vital Signs (Past 12 Hours) Vital Signs Temp Pulse Pulse Resp BP Pulse Ox 12/08/19 11:42 36.7 C 67 18 135/81 90 12/08/19 08:00 36.4 C L 76 18 148/82 H 91 12/08/19 07:46 87 12/08/19 04:58 36.6 C 70 18 138/81 91
--- NOTE | 2019-12-08 13:23 | Cardiology Progress Note ---
Date of Service December 08, 2019 Assessment & Plan (1) PAT (paroxysmal atrial tachycardia): No further arrhythmias would continue low-dose beta-liss (2) Abnormal EKG: Stable (3) Infection of below knee amputation stump: As above current pressing and supersedes any additional cardiac evaluation in asymptomatic patient. Surgical plans noted (4) PVD (peripheral vascular disease): Continue antiplatelet therapy and medications as noted. Tobacco cessation mandated Rosuvastatin restarted (5) Aortic valve cusp abnormality: Echocardiogram demonstrates focal calcification on the left coronary cusp. Given underlying infectious process vegetation not completely excluded. Patient's blood cultures have been negative on multiple testing however patient on antibiotic therapies prior to evaluation. Aortic valve is competent without stenosis or insufficiency or abscess. Would recommend serial echocardiograms and follow-up Echocardiogram today 12/06/2019 once again demonstrates no changes. Would recommend repeat in 2 weeks time Anticipating long-term antibiotic therapy as per ID Subjective Patient seen and examined, states that she feels well. No pain in stump after dressing change today. Continues to deny any cardiac complaints of chest pain, shortness of breath, palpitations, lightheadedness, dizziness or syncope. Telemetry has been discontinued. Review of Systems Review of Systems: All systems reviewed & are unremarkable except as noted in HPI & below Physical Exam Physical Exam: General: Awake, alert and oriented x 3. No acute distress. HEENT: Normocephalic, atraumatic. Pupils equal, round and reactive to light and accommodation. Extraocular muscles are intact. Anicteric sclera. Moist mucous membranes. Neck: No JVD. No bruit. Cardiovascular: Regular. Positive S-4. Normal S-1 and S-2. No S-3. No murmurs or rubs. Pulmonary: Clear to auscultation B/L. No rales, rhonchi or wheezing Abdomen: Bowel sounds x 4, soft. No rebound, guarding or tenderness. No organomegaly. Extremities: Bilateral BKA's with left stump dressed Skin: Warm and dry. Results & Data Vital Signs (Past 12 Hours) Vital Signs Temp Pulse Pulse Resp BP Pulse Ox 12/08/19 11:42 36.7 C 67 18 135/81 90 12/08/19 08:00 36.4 C L 76 18 148/82 H 91 12/08/19 07:46 87 12/08/19 04:58 36.6 C 70 18 138/81 91
[2019-12-08] MEDS: SENNA 8.6 MG TAB PO SCH (20:43)
[2019-12-08] MEDS: CLOPIDOGREL BISULFATE 75 MG TAB PO SCH (20:43)
[2019-12-08] MEDS: OLANZapine 20 MG TABLET PO SCH (20:43)
[2019-12-09] MEDS: INSULIN ASPART 100 UNITS/ML 3 ML PEN SC SCH ×2 (08:43→12:32)
[2019-12-09] MEDS: DOCUSATE SODIUM 100 MG CAP PO SCH (08:44)
[2019-12-09] MEDS: DULOXETINE HCL 60 MG CAP PO SCH (08:44)
[2019-12-09] MEDS: DOCUSATE SODIUM/SENNA 50/8.6MG TAB PO SCH (08:44)
[2019-12-09] MEDS: GABAPENTIN 600 MG TAB PO SCH (08:45)
[2019-12-09] MEDS: LACTOBACILLUS ACIDOPHILUS (FLORANEX) TAB PO SCH (08:45)
[2019-12-09] MEDS: FOLIC ACID 1 MG TAB PO SCH (08:45)
[2019-12-09] MEDS: MULTIVITAMIN TAB PO SCH (08:46)
[2019-12-09] MEDS: ROSUVASTATIN CALCIUM 20 MG TAB PO SCH (08:46)
[2019-12-09] MEDS: METOPROLOL TARTRATE 25 MG TAB PO SCH (08:46)
[2019-12-09] MEDS: lisinopriL 10 MG TAB PO SCH (08:47)
[2019-12-09] MEDS ORDERED: predniSONE 5 MG TAB PO SCH (09:00)
--- NOTE | 2019-12-09 10:16 | Orthopedic Progress Note ---
Date of Service December 09, 2019 Assessment & Plan (1) Necrosis of amputation stump of left lower extremity: Postoperative day 3 status post irrigation debridement of left below-knee amputation infected stump by Dr. Morton. -Continue regular dressing changes / packing per Wound Care team. -Currently on Zosyn/Levofloxacin. Antibiotics per primary team. Admission and Anticipated Discharge Date Admission Date: November 30, 2019 Subjective POD 3 s/p I/D left BKA stump Pt sitting up in bed. Awake, alert. No complaints. Comfortable. Joan Mckeon from Wound Care team present to help with dressing change. Physical Exam Physical Exam: Dressings removed. Darkened demarcated areas present but appear soft and not as hardened eschar. All packing removed that was placed during surgery. Measurements taken by Joan Mckeon from the medial side. 5-7cm deep. Lateral wound 2.5cm deep. No bright erythema. No purulent drainage. Wounds repacked with Iodoform gauze per Wound Care Team and redressed. Results & Data ([facility]) Vital Signs (Past 12 Hours) Vital Signs Temp Pulse Resp BP Pulse Ox 12/09/19 07:53 36.5 C 78 18 147/84 H 98 12/08/19 23:47 36.9 C 79 18 140/79 91
[2019-12-09] MEDS: levoFLOXacin 750 MG TAB PO SCH (11:47)
--- NOTE | 2019-12-09 13:26 | Cardiology Progress Note ---
Date of Service December 09, 2019 Assessment & Plan (1) PAT (paroxysmal atrial tachycardia): No further arrhythmias would continue low-dose beta-liss (2) Abnormal EKG: Stable (3) Infection of below knee amputation stump: As above current pressing and supersedes any additional cardiac evaluation in asymptomatic patient. Surgical plans noted (4) PVD (peripheral vascular disease): Continue antiplatelet therapy and medications as noted. Tobacco cessation mandated Rosuvastatin restarted (5) Aortic valve cusp abnormality: Echocardiogram demonstrates focal calcification on the left coronary cusp. Given underlying infectious process vegetation not completely excluded. Patient's blood cultures have been negative on multiple testing however patient on antibiotic therapies prior to evaluation. Aortic valve is competent without stenosis or insufficiency or abscess. Would recommend serial echocardiograms and follow-up Echocardiogram today 12/06/2019 once again demonstrates no changes. Would recommend repeat in 2 weeks time Anticipating long-term antibiotic therapy as per ID Subjective Patient seen and examined seated upright in bed. States that she feels well and denies any pain at the stump site. Also denies any chest pain, shortness of breath, palpitations, lightheadedness, dizziness or syncope. Review of Systems Review of Systems: All systems reviewed & are unremarkable except as noted in HPI & below Physical Exam Physical Exam: General: Awake, alert and oriented x 3. No acute distress. HEENT: Normocephalic, atraumatic. Pupils equal, round and reactive to light and accommodation. Extraocular muscles are intact. Anicteric sclera. Moist mucous membranes. Neck: No JVD. No bruit. Cardiovascular: Regular. Positive S-4. Normal S-1 and S-2. No S-3. No murmurs or rubs. Pulmonary: Clear to auscultation B/L. No rales, rhonchi or wheezing Abdomen: Bowel sounds x 4, soft. No rebound, guarding or tenderness. No organomegaly. Extremities: Bilateral BKA's with left stump dressed Skin: Warm and dry. Results & Data Vital Signs (Past 12 Hours) Vital Signs Temp Pulse Resp BP Pulse Ox 12/09/19 07:53 36.5 C 78 18 147/84 H 98
--- NOTE | 2019-12-09 16:51 | Discharge Summary ---
Date of Service December 09, 2019 Admission HPI Per Admitting Provider History of Present Illness 49-year-old female with history of peripheral artery disease, aortoiliac occlusive disease status post bilateral BKA, Rheumatoid arthritis, diabetes, hypertension, presenting with increasing pain and swelling on the left BKA stump. Patient was discharged from [facility] last November 21, 2019 after being treated for left BKA stump cellulitis. She was given vancomycin which was transitioned to doxycycline and cefdinir on discharge. She follows with the wound care center last November 26, 2020 at that time assessment was the wound was about the same and plans for vascular surgery referral within 1 week and was being contemplated. Since yesterday patient noted increased redness, pain, tenderness and serosanguineous discharge on the left BKA stump prompting consult to the ER. At the ER, arterial Doppler of the left lower extremity did not reveal significant stenosis. On exam, the patient seen sitting up in bed, not in distress but uncomfortable secondary to pain left BKA stump. She also reports chills at home, but denies headache, dizziness, chest pain, shortness of breath abdominal pain or any other symptoms. Primary Care Provider: Thanh Hanna DO Principal Diagnosis Sepsis/left-sided infected/necrosis of left BKA stump status post surgical debridement Discharge Exam Constitutional WD/WN, vitals as above + ill appearing Eyes PERRL, conjunctivae normal, anicteric sclerae ENMT external ear and nose normal, oropharynx normal Neck trachea midline, no thyromegaly Respiratory normal respiratory effort, lungs clear to auscultation Cardiovascular Rate/Rhythm: regular rate and regular rhythm Gastrointestinal (Abdomen) Inspection/Auscultation: normal bowel sounds Percussion/Palpation: abdomen soft; abdomen nontender Neurologic PERRL, EOMI, accommodation nl, no face palsy, no dysarthria Psychiatric A+Ox3, euthymic affect Discharge Data Allergies Allergy/AdvReac Type Severity Reaction Status Date / Time onion Allergy Unknown Verified 12/04/19 10:30 Consultations 11/30/19 18:51 ED Decision to Admit Stat 11/30/19 22:55 Consult Case Management - Discharge Planning Routine Consult Infectious Diseases Stat Consult Orthopedic Surgery Stat 12/01/19 11:49 Consult Vascular Surgery Routine 12/03/19 16:36 Consult Cardiology Routine 12/06/19 14:47 Consult Case Management - Discharge Planning Routine Procedures Performed Operation Date: 12/04/19 10:20 Actual Procedures p Bilateral Common Iliac Artery Stenting, Bilateral External Iliac Artery Stenting,Ultrasound Localization of Bilateral Femoral Arteries, Moderate Sedation [id number], (Bilateral) - Brian De MD Operation Date: 12/06/19 10:00 Actual Procedures p Left Incision and Drainage of Below Knee Amputation Stump, Extensive Celia ridement Skin, Fascia and Subfascia(Left) - Vinay Morton DO Ordered Studies 11/30/19 15:53 US arterial duplex LE LT Stat 11/30/19 22:55 CT femur LT wo con Urgent 12/02/19 09:45 CT angio abd pelvis wo/w con Routine 12/04/19 07:15 EV Angio Abdomen Aorta Routine US guide vascular access Routine Hospital Course (1) Acute blood loss anemia: due to acute blood loss anemia post op status s/p 1 unit PRBC tx on 12/07/19 hb stable @10 (2) Infection of below knee amputation stump: 49-year-old female with history of severe peripheral artery disease, aortic iliac occlusive disease status post bilateral BKA, Rheumatoid arthritis on chronic prednisone, diabetes type 2, hypertension dyslipidemia presenting with increasing pain and swelling of the left BKA stump. ABSCESS /GANGRENE /NECROSIS OF LEFT BKA INFECTED STUMP: CT of the left lower extremity significant for 2.5 cm complex fluid collection noted at left BKA site s/p I&D with draninage of large abscess 75 ml /with extensive debridement necrotic tissues on 12/06/19 surgery sample gram stain and culture-no growth previous culture : psudomonus Abx changed to PO levaquin total 10 days of tx SEPSIS SECONDARY TO LEFT BKA STUMP NONHEALING INFECTED WOUND, CELLULITIS resolved met criteria of sepsis on admission --Was discharged from [facility] on doxycycline and cefdinir last November 21, 2019 but patient's left BKA stump wound and cellulitis continue to progress -admitted heart rate of 106, leukocytosis of 13,900, and infected left BKA wound Lactic acid normalized from 2.6-1.7 within 2 hours in the emergency room -- s/p I&D , abx outlined above ID following , appreciate input SEVERE PERIPHERAL ARTERY DISEASE, AORTOILIAC OCCLUSION STATUS POST BILATERAL BKA -- vasculary surgery consulted - appreciate input /S/p bilateral illiac artery sent placement Cont on Palvix statin resumed Abnormal heart rhythm -episode of PAT ( paroxysmal atrial tachycardia ) noted , pt remains asymptomatic -appreciate input form Cardiology cont on beta liss tele d/jordan ECHO FINDING OF AORTIC VALVE ABNORMALITY : Echocardiogram : finding of focal calcification on the left coronary cusp/aortic valve competent without stenosis or insufficiency of abscess Blood cultures been negative repeat ECHO today 12/06/2019: shows no change surveillance ECHO in 2 weeks as out patient DIABETES TYPE 2 cont insulin sliding scale HYPERTENSION in Beta liss and Lisinopril HX O RA WITH CHRONIC PREDNISONE : PO prednisone 5 mg daily stress dose of Iv hydrocortisone D/jordan DVT prophylaxis moderate to high risk -SC heparin CODE STATUS --Full code DISPOSITION : lives at home active with manager group home plan to dc home with home health possible tomorrow Total Time Total Time Spent Total Time Spent (In Minutes): 35 mins Total Time Includes: Examination of the Patient, Discharge Planning and Medication Reconciliation Discharge Plan Discharge Items Patient Disposition: Home - Home Health Services Reason For Visit: SEPSIS, INFECTED L STUMP WOUND,CELLULITIS Discharge Diagnosis: Sepsis/left-sided infected/necrosis of left BKA stump status post surgical debridement Activity: Resume your previous activity Non-emergency contact: Primary Care Provider Call non-emergency contact if: you have any medication questions Follow-up/Referrals: Vinay Morton DO [Surgeon] - (Orthopedics follow up in 2 weeks , please yue l to schedule appointment ) Nik Coelho MD [Physician] - (Echocardiogram follow-up in 2 weeks) Brain De MD [Physician] - (Please call [phone] to schedule appointments for 2 months after discharge.) Thanh Hanna DO [Primary Care Provider] - Diet: Carb Consistent or DM2 and Heart Healthy Addtl Attending Provider Instructions: You have an appointment with [facility] on December 16 @ 09:00 am. ECHOCARDIOGRAM IN 2 WEEKS Antibiotic Levaquin 750 mg 1 tablet daily for 3 weeks /21 days continue to take Probiotic/Lactinex when taking antibiotic take over the counter stool softener -Miralax , Colace to prevent constipation while taking Narcotic pain medication . Coronavirus disease 2019 (COVID-19) is a virus that causes a respiratory illness. It is caused by a coronavirus called 2019 novel coronavirus (2019- nCoV). There are many types of coronavirus. Coronaviruses are a very common cause of bronchitis. They may sometimes cause lung infection(pneumonia). Symptoms can range from mild to severe respiratory illness. These viruses are also foundin some animals. COVID-19 was first found in people in [facility], in late 2019. In 2020, several cases of COVID-19 have been confirmed in the [place] Public health officials are working to find the source. How the virus spreads is not yet fully known. It may be spread through droplets of fluid that a person coughs or sneezes into the air. It may be spread if you touch a surface with virus on it, such as a handle or object, and then touch your mouth. What are the symptoms of COVID-19? Some people have no symptoms or mild symptoms. Symptoms may appear 2 to 14 days after contact with the virus. Symptoms can include: Fever Coughing Trouble breathing What are possible complications from COVID-19? In many cases, this virus can cause infection (pneumonia) in both lungs. In some cases, this can cause . How is COVID-19 diagnosed? Your healthcare provider will ask about your symptoms. He or she will also ask about your recent travel and contact with sick people. Testing for the virus is only done through the CDC. If yourhealthcare provider thinks you may have COVID- 19, he or she will work with your local health department and the CDC on testing. Follow all instructions from your healthcare provider. COVID-19 is diagnosed by: Nasal and throat swab. A cotton-tipped swab is wiped inside your nose or throat. This is done to check for viruses in your nasal mucus. Sputum culture. A small sample of mucus coughed from your lungs (sputum) is collected if you have a cough. It is checked for the virus. How is COVID-19 treated? There is currently no medicine to treat the virus. Treatment is done to help your body while it fights the virus. This is known as supportive care. Supportive care may include: Pain medicine. These include acetaminophen and ibuprofen. They are used to help ease pain and reduce fever. Bed rest. This helps your body fight the illness. For severe illness, you may need to stay in the hospital. Care during severe illness may include: IV (intravenous) fluids.These are given through a vein to help keep your body hydrated. Oxygen. Supplemental oxygen or ventilation with a breathing machine (ventilator) may be given. This is done to keep enough oxygen in your body. Are you at risk for COVID-19? If youve been to a place where people have been sick with this virus, you are at risk for infection. You are at risk if you: Recently traveled to an affected area Had contact with a sick person who recently traveled to this area Had contact with a person who was diagnosed with COVID-19 How can COVID-19 be prevented? There is no vaccine yet. The best prevention is to not have contact with the virus. The CDC advises that people should not travel to areas where there are COVID-19 outbreaks right now for any reason that is not urgent. To help prevent spreading the infection, wash your hands often, or use an alcohol-basedhand yarn cleaner. If you are in an area with COVID-19: Wash your hands often. Or use an alcohol-based hand yarn cleaner often. Only touch your eyes, nose, or mouth with clean hands. Dont have contact with people who are sick. Follow local instructions about being in public. For example, you may be told to not use public transport for a period of time. Stay away from markets that have live or animals. Wash your hands after touching any animals. Don't touch animals that may be sick. Dont share eating or drinking tools with sick people. Dont kiss someone who is sick. Clean surfaces often with disinfectant. If you were in an area with COVID-19 in the last 14 days: Call your healthcare provider. He or she can talk with local health staff to see what action may be needed. Follow all instructions from your provider. Take your temperature every morning and evening for at least 14 days. This is to check for fever. Keep a record of the readings. Keep watch for symptoms of the virus. Tell your provider right away if you have symptoms. If you were in an area with COVID-19 and have a fever or other symptoms: Dont panic. Keep in mind that other illnesses can cause similar symptoms. Stay away from work, school, and public places. Limit physical contact with family members. Don't kiss anyone or share eating or drinking utensils. Clean surfaces you touch with disinfectant. This is to help prevent the virus from spreading. Call your healthcare provider. Explain that you have been exposed to COVID-19 and have symptoms. Do this before going to any hospital. Wait for instructions. Keep in mind that healthcare staff may wear protective equipment such as masks, gowns, gloves, and eye protection. You may be put in a separate room. This is to prevent the possible virus from spreading. Tell the healthcare staff about recent travel. This includes local travel on public transport. Staff may need to find other people you have been in contact with. Follow all instructions the healthcare staff give you. If you have been diagnosed with COVID-19 Follow all instructions from your healthcare provider. Dont leave your home, except to get medical care. Call your healthcare providers office before going. They can prepare and give you instructions. This will help prevent the virus from spreading. Dont go to work, school, or public areas. Dont use public transport or taxis. Stay away from other people in your home. Have them wear face masks around you. Dont share household items or food. Wear a face mask if you can. This includes at home or in a medical facility. Cover your face with a tissue when you cough or sneeze. Throw the tissue away. Wash your hands. Wash your hands often. Caregivers should: Follow all instructions from healthcare staff. Wear a face mask and protective clothing as advised. Wash hands often. Keep track of the sick persons symptoms. Clean surfaces, fabrics, and laundry thoroughly. Keep other people away from the sick person. When to call your healthcare provider Call your healthcare provider: If youve recently traveled and have symptoms If you have been diagnosed with COVID-19 and your symptoms are worse To learn more To find out more about COVID-19, visit the CDC website at www.cdc.gov/coronavirus/2019-ncov/index.html. [employer]. [address] [place] [address], [place] [address]. All rights reserved. This information is not intended as a substitute for professional medical care. Always follow your healthcare professional's instructions. This information has been adapted from [employer] Pending Studies at Discharge: No Stand-Alone Forms: My [employer], Smoking Cessation Medications and DC Order Prescriptions: New levofloxacin 750 mg Tablet 750 mg PO DAILY 21 Days Qty: 21 RF: 0 oxycodone 5 mg Tablet 5 mg PO Q12 PRN (Reason: pain) Qty: 10 RF: 0 metoprolol tartrate 25 mg Tablet 12.5 mg PO DAILY 30 Days Qty: 15 RF: 3 Continued clopidogrel [Plavix] 75 mg tablet 75 mg PO QPM RF: 0 sulfasalazine 500 mg tablet 500 mg PO BID RF: 0 duloxetine [Cymbalta] 60 mg capsule,delayed release(DR/EC) 60 mg PO DAILY RF: 0 folic acid 1 mg tablet 1 mg PO DAILY RF: 0 hydroxychloroquine 200 mg tablet 300 mg PO DAILY RF: 0 methotrexate sodium (PF) 50 mg recon soln 50 mg WK RF: 0 Humira 40 mg/0.8 mL syringe kit 40 mg SQ .ON HOLD RF: 0 olanzapine [Zyprexa] 20 mg tablet 20 mg PO HS RF: 0 metformin 500 mg tablet 500 mg PO DAILY RF: 0 rosuvastatin 20 mg tablet 20 mg PO DAILY RF: 0 gabapentin 600 mg tablet 600 mg PO TID RF: 0 lisinopril 10 mg tablet 10 mg PO DAILY RF: 0 prednisone 5 mg tablet 5 mg PO DAILY RF: 0 Lactinex 1 million cell tablet,chewable 1 tab PO TID Qty: 30 RF: 0 acetaminophen [Tylenol Extra Strength] 500 mg Tablet 1,000 mg PO Q6H PRN (Reason: Pain) RF: 0 Discontinued prazosin 2 mg capsule 2 mg PO QPM RF: 0 cefdinir 300 mg capsule 300 mg PO BID 9 Days Qty: 18 RF: 1 doxycycline hyclate 100 mg capsule 100 mg PO BID 9 Days Qty: 18 RF: 1 Discharge Orders: Discharge Order (Routine); Ordered 12/09/19 Ordered By: Ruby Anne Admission Data Admit Date/Time: 11/30/19 20:21 Attending Provider: Ruby Anne Admit Provider: Marcus Stratton Primary Care Provider: Thanh Hanna Other Providers: Marcus Stratton ; Amanda Lara ; Vinay Morton ; Jignesh Orozco ; Flor Johnson ; Carlyn Glynn ; Brian De ; Korin Duncan ; Deborah Miller ; Edith Paiz ; Nik Coelho Other Interventions: Discharge Summary Assessment (RN) Last Done: 12/09/19 14:09 DC Date/Time DO NOT enter until pt leaves facility: 12/09/19 14:30
== END 2019-12-09 14:30 | disposition home health service (06) | DRG 515 ==
LOC: ED 15:28 → 2N 20:21 → SUATTDRO 20:21 → 2N 22:20